=== PATIENT | male | born 1960 | race Caucasian/White ===

== ENCOUNTER 2020-03-19 15:04 | Outpatient (CLI) | payer MEDICARE, MEDICAID, SELFPAY ==
--- NOTE | ~2020-03-19 | CT_ITS ---
EXAMINATION: CT abdomen pelvis w con DATE: 03/19/2020 16:02 INDICATION: Abnormal liver function tests. Distended abdomen. TECHNIQUE: Computed tomography (CT) of the abdomen and pelvis was performed with 100 cc Omnipaque 350 intravenous contrast. The dose-length product was 1113.65 mGy-cm. Automated exposure control and ite rative reconstruction technique were employed. COMPARISON: None. FINDINGS: There is atelectasis of the lung bases. Elevated right diaphragm. Heart size normal. No sig nificant pleural or pericardial effusion. There is cirrhosis of the liver. There are gallstones. There are calcified granulomas of the spleen. There is a large amount of ascites. There is a subtle 1.4 cm hypodense lesion of the pancreatic head. There are multiple left adrenal masses, largest measuring 1.8 cm. There is recanalization of the umb ilical vein. The kidneys are unremarkable. Nonobstructive bowel gas pattern. No free air. No osteolyt ic or osteoblastic lesions. IMPRESSION: 1. Cirrhosis of the liver with evidence of portal hypertension. Large amount of ascites. 2: Cholelithiasis. 3: 1.4 cm hypodense lesion pancreatic head. The differential diagnosis includes pseudocyst, intraduc yessica papillary mucinous neoplasm (IPMN), mucinous cystic neoplasm (MCN), and the less common serous cy stadenoma and neuroendocrine tumor. 4: Cholelithiasis. Reviewed, dictated and finalized at location A. IMPRESSION: 1. Cirrhosis of the liver with evidence of portal hypertension. Large amount of ascites. 2: Cholelithiasis. 3: 1.4 cm hypodense lesion pancreatic head. The differential diagnosis include s pseudocyst, intraductal papillary mucinous neoplasm (IPMN), mucinous cystic n eoplasm (MCN), and the less common serous cystadenoma and neuroendocrine tumor. 4: Cholelithiasis.
[2020-03-19 15:47] LABS: Estimated Glomerular Filt Rate > 60
== END 2020-03-19 15:05 | disposition home or self-care (01) ==
LOC: ANHIMG 15:12
PROVIDERS: PCP Family Medicine; Visit Provider Family Medicine
DX: R94.5 Abnormal results of liver function studies (principal); K74.69 Other cirrhosis of liver; K80.20 Calculus of gallbladder without cholecystitis without obstruction
CPT/HCPCS: 74177; Q9967

== ENCOUNTER 2020-04-27 09:51 | Inpatient (IN) | payer MEDICARE, MEDICAID, SELFPAY ==
[2020-04-27] VITALS (30 sets, daily range): BP systolic 82–120; BP diastolic 54–85; PULSE 98–124; RESP 18–22; TEMP 36.4–36.6; O2SAT 96–100; BMI 34.7
--- NOTE | ~2020-04-27 | XR_ITS ---
EXAMINATION: XR chest 2V DATE: 05/03/2020 11:53 INDICATION: Fever. TECHNIQUE: Frontal and lateral views of the chest were obtained. COMPARISON: Chest single view 04/28/2020 FINDINGS: There are small pleural effusions. There is mild atelectasis at the lung bases. There are m ild airspace opacities in right midlung zone. No pneumothorax. The heart size is normal. IMPRESSION: 1. Mild airspace opacities in right midlung zone, consistent with pulmonary edema versus pneumonia. 2. Small pleural effusions. Reviewed, dictated and finalized at location B. NCED SOLUTIONS ARCHITECT IMPRESSION: 1. Mild airspace opacities in right midlung zone, consistent with pulmonary aide ma versus pneumonia. 2. Small pleural effusions.
--- NOTE | ~2020-04-27 | XR_ITS ---
XR chest 1V portable 04/28/2020 12:02 Indication: Shortness of breath Procedure: AP portable chest Comparison: 04/27/2020 Findings: Bilateral perihilar and basilar infiltrates. Possible small effusions. Heart size normal. N o pneumothorax. Impression: 1: Bilateral perihilar and basilar infiltrates may represent mild edema versus pneumonia. Reviewed, dictated and finalized at location A. UM TANK TENDER Impression: 1: Bilateral perihilar and basilar infiltrates may represent mild edema versus pneumonia.
--- NOTE | ~2020-04-27 | US_ITS ---
EXAMINATION: US paracentesis abd w/image DATE: 04/28/2020 13:31 METAL OR WOOD BLOCKER INDICATION: Ascites. TECHNIQUE: The procedure for an ultrasound-guided paracentesis was discussed with the patient. Risks and benefits were detailed, including risks of bleeding, infection, and pain. The patient verbalize d understanding and agreed to proceed following written consent. A time and out was performed to verify patient's name, date of , and type of procedure. The lef t lower quadrant of the abdomen was prepped and draped in usual manner. 1% lidocaine was used for lo efren anesthesia. A catheter was inserted into the left lower quadrant under ultrasound guidance into the ascitic fluid. The fluid was removed with vacuum assistance. All needles were removed. The patient tolerated the procedure without immediate complication.] FINDINGS: Limited images of the abdomen demonstrates a large amount of ascites. Approximately 5 L of yellowish clear liquid was removed. IMPRESSION: 1. Successful ultrasound-guided paracentesis, with removal of approximately 5 L of fluid. Reviewed, dictated and finalized at location A. L OR WOOD BLOCKER
--- NOTE | ~2020-04-27 | XR_ITS ---
XR chest 1V portable 04/27/2020 10:22 Indication: Shortness of breath Procedure: AP portable chest Comparison: Comparison to multiple prior studies sequentially, with oldest reviewed study dated 11/2007. Findings: Shallow inspiration. Small pleural effusions. Bibasilar atelectasis. No pneumothorax. No ed goran. Impression: 1: Bibasilar atelectasis. 2: Small pleural effusions. Reviewed, dictated and finalized at location B. ULAR NURSE Impression: 1: Bibasilar atelectasis. 2: Small pleural effusions.
--- NOTE | 2020-04-27 10:00 | ECG_ITS ---
Measurements Intervals [place] Rate: 125 P: 0 AK: 130 QRS: -9 QRSD: 81 T: -16 QT: 343 QTc: 496 Interpretive Statements SINUS OR ECTOPIC ATRIAL TACHYCARDIA BORDERLINE R WAVE PROGRESSION, ANTERIOR LEADS BORDERLINE T WAVE ABNORMALITY- ANTEROLAT/INF LEADS BASELINE ARTIFACT- V1, V3 ABNORMAL ECG Electronically Signed On 04-27-2020 10:04:37 [employer] by Anthony Kaiser D.O.
[2020-04-27 10:21] LABS: Basophils Percent Auto 0.6 % (0.2-1.2); Eosinophils Absolute Auto 0.1 K/mm3 (0-0.3); Eosinophils Percent Auto 1.1 % (0-4.4); Hematocrit 35.9 % (42.0-52.0); Immature Granulocyte Absolute 0.02 K/mm3 (0.00-0.031); Immature Granulocyte Percent A 0.3 % (0-0.5); Lymphocytes Absolute Auto 2.13 K/mm3 (0.9-3.2); Lymphocytes Percent Auto 30.2 % (18.3-44.2); Mean Corpuscular HGB Conc 33.4 g/dl (32-36); Mean Corpuscular Hemoglobin 31.3 pg (26-34); Mean Corpuscular Volume 93.7 fl (80-100); Mean Platelet Volume 9.2 fl (7.4-10.4); Monocytes Absolute Auto 0.8 K/mm3 (0.1-0.6); Monocytes Percent Auto 11.5 % (2.6-8.5); Neutrophils Percent Auto 56.3 % (45.5-73.1); Platelet Count Result 235 k/mm3 (150-375); Red Blood Count 3.83 M/mm3 (4.6-6.20); Red Cell Distribution Width 17.2 % (11.5-14.5); White Blood Count 7.1 K/mm3 (4.5-10.0)
[2020-04-27 10:28] LABS: Anion Gap 6 mmol/L (8-16); Blood Urea Nitrogen 13 mg/dL (9-20); Calcium 8.6 mg/dL (8.4-10.2); Carbon Dioxide 24 mmol/L (22-30); Chloride 107 mmol/L (98-107); Estimated CRCL calculation 110 ml/min; Estimated Glomerular Filt Rate > 60; Glucose 114 mg/dL (75-110); Potassium 4.1 mmol/L (3.4-5.0); Sodium 137 mmol/L (137-145)
[2020-04-27 10:31] LABS: Atypical Lymphocytes Present; Platelet Estimate Adequate (Adequate)
--- NOTE | 2020-04-27 11:18 | ED.SOB ---
HPI - SOB/Dyspnea General Chief Complaint: Shortness of Breath/Dyspnea Stated Complaint: SOB with exertion x months Time Seen by Provider: 04/27/20 10:24 Source: patient and family Limitations: no limitations History of Present Illness HPI Narrative: Patient is 60 years old white male presents with gradual increase of shortness of breath over the last 5 to 6 months. Patient had history of liver cirrhosis and ascites, never had abdominal centesis before. Never seen director of rehabilitative services. Patient denies any fever, chills, nausea, vomiting, exposure to anybody known having COVID-19. Related Data Home Medications Medication Instructions Recorded Confirmed alprazolam 04/27/20 hydrocodone-acetaminophen 04/27/20 losartan 04/27/20 Allergies Allergy/AdvReac Type Severity Reaction Status Date / Time No Known Allergies Allergy Unverified 04/27/20 09:56 Review of Systems Review of Systems: Narrative: CONSTITUTIONAL: Denies fever, chills, or sweats. EYES: Denies visual changes, redness, or discharge. ENT: Denies rhinorrhea, congestion, sore throat, or otalgia. CARDIOVASCULAR: Denies chest pain, palpitations, or edema. RESPIRATORY: Shortness of breath GASTROINTESTINAL: Abdominal distention with diffuse tenderness GENITOURINARY: Denies dysuria or hematuria. SKIN: Denies rash or itching. MUSCULOSKELETAL: Denies back pain, joint pain, or myalgia. NEUROLOGIC: Denies headache, numbness, or weakness. PSYCHIATRIC: Depression and anxiety [facility] Past Medical History Medical History Alcoholism Hyperlipidemia Hypertension Liver cirrhosis Family History Family History Mother Family history of diabetes mellitus in first degree relative Family history of coronary artery disease Social History Social History Smoking status: Never smoker Alcohol intake: current Gender identity (if verbalized by the patient): Male Exam Narrative: Exam Narrative: General appearance: Well-developed, well-nourished Skin: Normal color Head: Normocephalic, nontraumatic Eyes: Clear conjunctiva ENT: Oropharynx normal, ears normal, nose normal Neck: Supple, nontender Chest and respiratory: Airway patent, no respiratory distress, no accessory muscle use Heart: Regular rate/rhythm Abdomen: Tense, large ascites, Vascular: Normal peripheral pulses, normal capillary refill. Musculoskeletal: Normal range of motion, nontender back Neurologic: Alert and oriented ?3, SENIOR DATA ARCHITECT is normal as tested, no gross motor deficit Course Course Emergency Course: Stable Consultations Consultation #1: kiesha Date: 04/27/20 Time: 13:17 Vital Signs Vital signs: Vital Signs Temperature 36.4 C L 04/27/20 09:52 Pulse Rate 98 04/27/20 09:52 Respiratory Rate 20 04/27/20 09:52 Blood Pressure 120/82 04/27/20 09:52 Pulse Oximetry 98 04/27/20 09:52 Temperature 36.4 C L 04/27/20 09:52 Pulse Rate 119 H 04/27/20 11:16 Respiratory Rate 21 H 04/27/20 11:46 Blood Pressure 96/83 L 04/27/20 11:46 Pulse Oximetry 98 04/27/20 12:14 MDM - SOB/Dyspnea MDM Narrative Medical decision making narrative: Patient presents with shortness of breath which I believe secondary to increasing the size of the ascites. Never been seen by director of rehabilitative services. Never had abdominal centesis in the past. Labs, ordered. Further plan to follow Differential Diagnosis Differential diagnosis: Likely other (Liver cirrhosis, electrolyte imbalance, ascites) Lab Data Result diagrams: 04/27/20 10:05 04/27/20 10:05 Lab
--- NOTE | 2020-04-27 11:20 | PC.NURSE ---
received report from Ana CONTEH. resting on stretcher. in room. all tests resulted. waiting for final decision regarding admission and paracentesis.
[2020-04-27 13:36] LABS: INR 1.6; Prothrombin Time 19.9 Seconds (11.1-14.7)
[2020-04-27 13:37] LABS: Partial Thromboplastin Time 39.7 SECONDS (22.3-36.8)
--- NOTE | 2020-04-27 14:38 | PC.NURSE ---
patient taken to GI lab for paracentesis. patient has bed assigned. advised GI blood bank laboratory technician that patient can go to his bed after procedure. will also notify charge nurse and GI lab.
--- NOTE | 2020-04-27 14:50 | PC.NURSE ---
report given to RN on 3rd floor. aware that patient is in GI lab and then will be transferred to 344.
--- NOTE | 2020-04-27 14:52 | PC.NURSE ---
attempted to call GI lab. no answer x multiple attempts.
--- NOTE | 2020-04-27 15:22 | ADMGEN ---
This patient, Lloyd Scales, was admitted to Medical Room 344-01. Patient/family oriented to hospital policies and general routines including ID bracelet, bed and alarms, visiting hours, pain management, procedures, bathroom and other care routines, personal items, smoking policy, room service/diet, and visiting hours. Information on how to activate the Rapid Response Team has been discussed. Patient/Family are encouraged to report perceived risks to care and to ask questions if they do not understand what they are told or what they should do.
--- NOTE | 2020-04-27 16:43 | PM.IMHP ---
H&P: HPI History of Present Illness Date/Time: 04/27/20 16:43 Chief complaint: liver cirrhosis with ascites,pancreatitis mass Narrative: Lloyd Scales is a 60 year old male who has a long history of alcoholism. The patient stated that he has been abstinent from alcohol for at least 2-3 months. In he is also down to just a couple cigarettes a day. The patient has a known pancreatic mass. The patient had an appointment to see a specialist at [facility] but he did not make it to his appointment For unknown reasons. The patient just stated that he missed it. Patient had a abdominal pelvis CT on 03/19/2020 which was read as cirrhosis of the liver with evidence of portal hypertension. Large amount of ascites. Cholelithiasis. 1.4 cm hypodense lesion pancreatic head. The differential diagnosis includes pseudocyst, intraductal papillary mucous neoplasm and least common serous cystadenoma. The patient was going to be worked up outpatient for this but just did not make it to the appointment. Today the patient came into the emergency room very distended and uncomfortable. The patient stated he is very short of breath with exertion due to the enlarged abdomen. The patient is a poor historian. GI has been consulted. Patient has undergone a paracentesis today with cytology. According to the ultrasound report successful ultrasound-guided paracentesis yielding 5000 mL of yellow fluid. Patient's chest x-ray was read as bibasilar atelectasis. Small pleural effusions. Patient has 4+ pitting edema to lower extremities. Awaiting LFTs and ammonia Levels. Dr. pop has been consulted and has already seen the patient. He recommended Lasix and Aldactone. I talked to the patient about the pancreatic mass and he has been aware for some time. He agrees to follow-up with that specialist at [facility] outpatient. Patient is being admitted to observation status date of service 04/27/2020. Review of Systems Review of Systems: All systems reviewed & are unremarkable except as noted in HPI and below Constitutional: Constitutional: Reports as per HPI and Reports no additional constitutional complaints Eyes: Eyes: Reports as per HPI and Reports no additional eye complaints ENT: Reports system reviewed and no additional complaints, except as documented and Reports Normal hearing present Cardiovascular: Cardiovascular: Reports no additional cardiovascular complaints Respiratory: Respiratory: Reports no additional respiratory complaints and Reports no additional respiratory complaints Gastrointestinal: Gastrointestinal: Reports as per HPI and Reports no additional gastrointestinal complaints Musculoskeletal: Musculoskeletal: Reports no additional musculoskeletal complaints Integumentary/Breasts: Skin/Breast: Reports system reviewed and no additional complaints, except as docu and Reports as per HPI Neurologic: Reports system reviewed and no additional complaints, except as documented, Reports as per HPI and Reports Normal hearing present Psychiatric: Psychiatric: Reports no additional psychiatric complaints and Reports as per HPI Endocrine: Endocrine: Reports no additional endocrine complaints Hematologic/Lymphatic: Hematologic/Lymphatic: Reports no additional hematologic/lymphatic complaints Allergic/Immunologic: Allergic/Immunologic: Reports no additional allergic/immunologic complaints [facility] Past Medical History Medical History (Updated 04/27/20 @ 17:03 by Jeanne Marr NP) Alcohol withdrawal seizure Alcoholism BPH (benign prostatic hyperplasia) Chronic anemia Hyperlipidemia Hypertension Liver cirrhosis Spina bifida occulta Surgical History Surgical History (Updated 04/27/20 @ 17:03 by Jeanne Marr NP) H/O hemorrhoidectomy S/P shoulder replacement Status post left foot surgery Family History Family History (Updated 04/27/20 @ 17:05 by Jeanne Marr NP) Mother Family history of diabetes mellitus in first degree relati
[2020-04-27 17:10] LABS: Appearance Peritoneal Fluid Clear (Clear); Color Peritoneal Fluid Yellow (Colorless); Lymphocytes Peritoneal Fluid 66 %; Macrophages Peritoneal Fluid 10 %; Mesothelial Cells Peritoneal Fluid 3 %; Monocytes Peritoneal Fluid 19 %; Neutrophils Peritoneal Fluid 2 % (0-25); Nucleated Cells Peritoneal Flu 89 /uL (0-500); RBC Peritoneal Fluid 157 /uL (0-100000); Source Peritoneal Fluid Peritoneal Fluid
[2020-04-27 18:11] LABS: Ammonia < 9 umol/L (9-30)
[2020-04-28] VITALS (8 sets, daily range): BP systolic 70–126; BP diastolic 40–78; PULSE 90–111; RESP 16–20; TEMP 36.2–36.7; O2SAT 91–97
[2020-04-28 05:38] LABS: Basophils Percent Auto 0.4 % (0.2-1.2); Eosinophils Absolute Auto 0.1 K/mm3 (0-0.3); Eosinophils Percent Auto 1.8 % (0-4.4); Hematocrit 28.5 % (42.0-52.0); Hemoglobin 9.6 g/dL (14.0-18.0); Immature Granulocyte Absolute 0.02 K/mm3 (0.00-0.031); Immature Granulocyte Percent A 0.4 % (0-0.5); Lymphocytes Absolute Auto 1.46 K/mm3 (0.9-3.2); Lymphocytes Percent Auto 26.7 % (18.3-44.2); Mean Corpuscular HGB Conc 33.7 g/dl (32-36); Mean Corpuscular Hemoglobin 31.2 pg (26-34); Mean Corpuscular Volume 92.5 fl (80-100); Mean Platelet Volume 9.2 fl (7.4-10.4); Monocytes Absolute Auto 0.8 K/mm3 (0.1-0.6); Monocytes Percent Auto 13.7 % (2.6-8.5); Neutrophils Absolute Auto 3.1 K/mm3 (1.3-6.7); Platelet Count Result 153 k/mm3 (150-375); Red Blood Count 3.08 M/mm3 (4.6-6.20); Red Cell Distribution Width 16.9 % (11.5-14.5); White Blood Count 5.5 K/mm3 (4.5-10.0)
[2020-04-28 06:04] LABS: Alanine Aminotransferase 12 U/L (4-50); Albumin Level 2.1 g/dL (3.5-5.1); Alkaline Phosphatase 97 U/L (38-126); Anion Gap 3 mmol/L (8-16); Aspartate Amino Transferase 33 U/L (17-59); Bilirubin,Total 1.6 mg/dL (0.2-1.3); Blood Urea Nitrogen 12 mg/dL (9-20); CRP 1.3 mg/dL (<1.0); Calcium 7.8 mg/dL (8.4-10.2); Carbon Dioxide 25 mmol/L (22-30); Chloride 107 mmol/L (98-107); Estimated CRCL calculation 124 ml/min; Estimated Glomerular Filt Rate > 60; Glucose 84 mg/dL (75-110); Lactate Dehydrogenase 271 U/L (313-618); Lipase 40 U/L (23-300); Magnesium 1.8 mg/dL (1.6-2.3); Phosphorus 3.8 mg/dL (2.5-4.5); Potassium 4.1 mmol/L (3.4-5.0); Sodium 135 mmol/L (137-145)
[2020-04-28 06:41] LABS: Platelet Estimate Adequate (Adequate)
[2020-04-28 06:42] LABS: Atypical Lymphocytes Present
[2020-04-28 06:47] LABS: Thyroid Stimulating Hormone Reflex 0.806 uIU/mL (0.465-4.68)
[2020-04-28] MEDS: ALPRAZolam (*CRX) 0.5 MG TABLET PO (06:47)
[2020-04-28] MEDS: TAMSULOSIN HCL 0.4 MG CAPSULE PO (08:47)
[2020-04-28] MEDS: FUROSEMIDE 20 MG TABLET PO (08:47)
[2020-04-28] MEDS: SPIRONOLACTONE 25 MG TABLET PO (08:47)
[2020-04-28] MEDS: allopurinoL 150 MG TABLET PO (08:47)
[2020-04-28] MEDS: FUROSEMIDE INJ 40 MG/4 ML VIAL 20 MG IV PUSH (11:59)
--- NOTE | 2020-04-28 12:46 | WPDGIPROGNO ---
Progress Note: A&P Additional Plan Kavin for Fedder 28 Apr 2020 Mild SOB. No abdominal pain, n, v. 4+ bilateral LIEN. Large ascites. C+A x 3. 04-28-2020 Hct 29. MCV 93. Lip 40, TSH 0.8 04-27-2020 NH3 < 9. Ascites negative for SBP A. Alcoholic cirrhosis with ascites: - For repeat tap today; s/p 5 L tap 04-27-2020 - 2 gr sodium restriction - Would diurese with Lasix 40-80 mg IV Q 12 - Would give 25 gr of salt poor albumin before each Lasix dose - Aldactone 100 mg daily @ 4 pm - Continue alcohol cessation B. Abnormal imaging pancreas: - CT 03-19-2020 with 1.4 cm lesion @ [facility] - Check CA 19-9 - Consider either repeat CT with pancreatic protocol after 2 months or consider EUS with FNA Case discussed with Dr. Heart. Patient may wish to consider hospital discharge on Hospice. Will await decision. Thanks, [facility] [phone] Subjective Date/time seen: 04/28/20 12:46 Objective Data Vital Signs Vital Signs: Vital Signs - 24 hr 04/27/20 13:14 04/27/20 13:15 04/27/20 13:16 Temperature Pulse Rate Respiratory Rate Blood Pressure 90/66 L Pulse Oximetry 100 98 96 04/27/20 13:30 04/27/20 14:02 04/27/20 15:44 Temperature 36.6 C Pulse Rate 107 H Respiratory Rate 18 Blood Pressure 85/65 L Pulse Oximetry 98 97 99 04/27/20 16:44 04/27/20 19:56 04/27/20 20:00 Temperature 36.5 C Pulse Rate 105 H Respiratory Rate 20 Blood Pressure 82/54 L Pulse Oximetry 98 97 99 04/28/20 05:38 04/28/20 08:45 04/28/20 11:58 Temperature 36.2 C L Pulse Rate 102 H Respiratory Rate 16 Blood Pressure 94/65 L 115/76 126/73 Pulse Oximetry 95 91 Intake/Output Intake/Output: Intake & Output 04/25/20 04/26/20 04/27/20 04/28/20 23:59 23:59 23:59 23:59 Intake Total 540 740 Output Total 0 200 Balance 540 540 Meds/Results Medications: Active Medications Generic Name Dose Route Start Last Admin Trade Name Namanq PRN Reason Stop Dose Admin Allopurinol 150 mg 04/28/20 09:00 04/28/20 08:47 Allopurinol 150 Mg Tablet PO 150 mg DAILY AMBER Administration Alprazolam 0.5 mg 04/27/20 16:42 04/28/20 06:47 Alprazolam (*Crx) 0.5 Mg Tablet PO 0.5 mg QID PRN Administration Anxiety Furosemide 20 mg 04/28/20 09:00 04/28/20 08:47 Furosemide 20 Mg Tablet PO 20 mg DAILY AMBER Administration Nicotine 1 patch 04/28/20 11:45 Nicotine (*Pbkc) 14 Mg Patch TRANSDERM QAM AMBER Spironolactone 25 mg 04/28/20 09:00 04/28/20 08:47 Spironolactone 25 Mg Tablet PO 25 mg QAM AMBER Administration Tamsulosin HCl 0.4 mg 04/28/20 09:00 04/28/20 08:47 Tamsulosin Hcl 0.4 Mg Capsule PO 0.4 mg DAILY AMBER Administration Radiology Results: ITS Impressions Chest X-Ray 04/28/20 12:12 Impression: 1: Bilateral perihilar and basilar infiltrates may represent mild edema versus pneumonia. Labs Labs: Laboratory Results - last 24 hr 04/27/20 04/27/20 04/27/20 10:05 14:51 17:45 WBC RBC Hgb Hct MCV MCH MCHC RDW Plt Count MPV Immature Gran % (Auto) Neut % (Auto) Lymph % (Auto) [place] % (Auto) Eos % (Auto) Baso % (Auto) Lymph # (Auto) [place] # (Auto) Eos # (Auto) Baso # (Auto) Abs Immat Gran (auto) Absolute Neuts (auto) Absolute Nucleated RBC Nucleated RBC % Atypical Lymphocytes Platelet Estimate PT 19.9 H INR 1.6 APTT 39.7 H Sodium Potassium Chloride Carbon Dioxide Anion Gap BUN Creatinine Estim Creat Clear Calc Estimated GFR Glucose Calcium Phosphorus Magnesium Total Bilirubin Direct Bilirubin AST ALT Alkaline Phosphatase Ammonia < 9 L Lactate Dehydrogenase C-Reactive Protein Total Protein Albumin Lipase TSH (Reflex) Peritoneal Source Peritoneal fluid Peritoneal Color Yellow Peritoneal Appearance Clear Peritoneal RBC 157 Periton Nuc Cells
--- NOTE | 2020-04-28 12:50 | PM.DS ---
DS: Admitting Diagnosis Admitting Diagnosis Admitting Diagnosis: liver cirrhosis with ascites,pancreatitis mass DS: Summary Time Spent with Patient Time attestation: Total time spent providing and/or coordinating discharge services: DS: Data Data Completed and Pending Pending studies at discharge: Pending at discharge 04/27/20 16:20 Cytology [PTH] Routine Labs on day of discharge: Labs from last 24 hours 04/28/20 04/28/20 04/28/20 05:17 05:17 05:17 WBC 5.5 RBC 3.08 L Hgb 9.6 L Hct 28.5 L MCV 92.5 MCH 31.2 MCHC 33.7 RDW 16.9 H Plt Count 153 MPV 9.2 Immature Gran % (Auto) 0.4 Neut % (Auto) 57.0 Lymph % (Auto) 26.7 [place] % (Auto) 13.7 H Eos % (Auto) 1.8 Baso % (Auto) 0.4 Lymph # (Auto) 1.46 [place] # (Auto) 0.8 H Eos # (Auto) 0.1 Baso # (Auto) 0.0 Abs Immat Gran (auto) 0.02 Absolute Neuts (auto) 3.1 Absolute Nucleated RBC 0.0 Nucleated RBC % 0.0 Atypical Lymphocytes Present Platelet Estimate Adequate PT INR APTT Sodium 135 L Potassium 4.1 Chloride 107 Carbon Dioxide 25 Anion Gap 3 L BUN 12 Creatinine 0.60 L Estim Creat Clear Calc 124 Estimated GFR > 60 Glucose 84 Calcium 7.8 L Phosphorus 3.8 Magnesium 1.8 Total Bilirubin 1.6 H Direct Bilirubin 0.0 AST 33 ALT 12 Alkaline Phosphatase 97 Ammonia Lactate Dehydrogenase 271 L C-Reactive Protein 1.3 H Total Protein 5.0 L Albumin 2.1 L Lipase 40 TSH (Reflex) 0.806 Peritoneal Source Peritoneal Color Peritoneal Appearance Peritoneal RBC Periton Nuc Cells Periton Neutrophils Periton Lymphocytes Peritoneal Monocytes Periton Mesothelial Periton Macrophages Peritoneal Tot Protein Peritoneal Albumin Peritoneal LDH 04/27/20 04/27/20 04/27/20 17:45 14:51 14:51 WBC RBC Hgb Hct MCV MCH MCHC RDW Plt Count MPV Immature Gran % (Auto) Neut % (Auto) Lymph % (Auto) [place] % (Auto) Eos % (Auto) Baso % (Auto) Lymph # (Auto) [place] # (Auto) Eos # (Auto) Baso # (Auto) Abs Immat Gran (auto) Absolute Neuts (auto) Absolute Nucleated RBC Nucleated RBC % Atypical Lymphocytes Platelet Estimate PT INR APTT Sodium Potassium Chloride Carbon Dioxide Anion Gap BUN Creatinine Estim Creat Clear Calc Estimated GFR Glucose Calcium Phosphorus Magnesium Total Bilirubin Direct Bilirubin AST ALT Alkaline Phosphatase Ammonia < 9 L Lactate Dehydrogenase C-Reactive Protein Total Protein Albumin Lipase TSH (Reflex) Peritoneal Source Peritoneal fluid Peritoneal Color Yellow Peritoneal Appearance Clear Peritoneal RBC 157 Periton Nuc Cells 89 Periton Neutrophils 2 Periton Lymphocytes 66 Peritoneal Monocytes 19 Periton Mesothelial 3 Periton Macrophages 10 Peritoneal Tot Protein Pending Peritoneal Albumin Pending Peritoneal LDH Pending 04/27/20 10:05 WBC RBC Hgb Hct MCV MCH MCHC RDW Plt Count MPV Immature Gran % (Auto) Neut % (Auto) Lymph % (Auto) [place] % (Auto) Eos % (Auto) Baso % (Auto) Lymph # (Auto) [place] # (Auto) Eos # (Auto) Baso # (Auto) Abs Immat Gran (auto) Absolute Neuts (auto) Absolute Nucleated RBC Nucleated RBC % Atypical Lymphocytes Platelet Estimate PT 19.9 H INR 1.6 APTT 39.7 H Sodium Potassium Chloride Carbon Dioxide Anion Gap BUN Creatinine Estim Creat Clear Calc Estimated GFR Glucose Calcium Phosphorus Magnesium Total Bilirubin Direct Bilirubin AST ALT Alkaline Phosphatase Ammonia Lactate Dehydrogenase C-Reactive Protein Total Protein Albumin Lipase TSH (Reflex) Peritoneal Source Peritoneal Color Peritoneal Appearance Peritoneal RBC
--- NOTE | 2020-04-28 13:01 | PM.IMPN ---
Progress Note: A&P Assessment and Plan (1) Cirrhosis of liver with ascites: Qualifiers: Hepatic cirrhosis type: alcoholic cirrhosis Qualified Code(s): K70.31 - Alcoholic cirrhosis of liver with ascites Code(s): K74.60 - Unspecified cirrhosis of liver; R18.8 - Other ascites Status: Acute Assessment and Plan: Oxygen IV lasix bid albumin before lasix, aldactone at 4 pm 100mg Pt going for second paracentesis today D/w GI regarding gross fluid overload (2) Mass of pancreas: Code(s): K86.89 - Other specified diseases of pancreas Status: Chronic Assessment and Plan: Patient was to follow-up outpatient with a specialist at [place] but missed the appointment. unsure whether this is pancreatic cancer CEA 19-9 ordered (3) BPH (benign prostatic hyperplasia): Code(s): N40.0 - Benign prostatic hyperplasia without lower urinary tract symptoms Status: Chronic Assessment and Plan: Continue with tamsulosin (4) Hypertension: Code(s): I10 - Essential (primary) hypertension Status: Chronic Assessment and Plan: patient's blood pressure is soft at this time going to hold losartan today. (5) Chronic anemia: Code(s): D64.9 - Anemia, unspecified Status: Chronic Assessment and Plan: Continue to monitor. (6) Alcohol abuse: Code(s): F10.10 - Alcohol abuse, uncomplicated Status: Acute Assessment and Plan: Patient stated he has abstained for the last 2-3 months. watch for any DTs Subjective Date/time seen: 04/28/20 13:01 Interval history: 60 year old admitted with gross ascites pt had paracentesis yesterday i ordered paracentesis for him today. Pt still looks to have large amount of ascites today. Cholelithiasis. 1.4 cm hypodense lesion pancreatic head. The differential diagnosis includes pseudocyst, intraductal papillary mucous neoplasm and least common serous cystadenoma. I will continue to actively treat him and will consult hospice also if he wants to go that route. Discussion with GI continue diuresis with iV LASIX as pt is heavily over loaded. Review of Systems Review of Systems: All systems reviewed & are unremarkable except as noted in HPI and below Exam Narrative: Exam Narrative: SOB at rest in distress on 2 liters using accessory muscles RRR CHest decreased BS BL Abdomen gross ascites Legs non edematous Objective Data Vital Signs Vital Signs: Vital Signs - 24 hr 04/27/20 13:14 04/27/20 13:15 04/27/20 13:16 Temperature Pulse Rate Respiratory Rate Blood Pressure 90/66 L Pulse Oximetry 100 98 96 04/27/20 13:30 04/27/20 14:02 04/27/20 15:44 Temperature 36.6 C Pulse Rate 107 H Respiratory Rate 18 Blood Pressure 85/65 L Pulse Oximetry 98 97 99 04/27/20 16:44 04/27/20 19:56 04/27/20 20:00 Temperature 36.5 C Pulse Rate 105 H Respiratory Rate 20 Blood Pressure 82/54 L Pulse Oximetry 98 97 99 04/28/20 05:38 04/28/20 08:45 04/28/20 11:58 Temperature 36.2 C L Pulse Rate 102 H Respiratory Rate 16 Blood Pressure 94/65 L 115/76 126/73 Pulse Oximetry 95 91 Intake/Output Intake/Output: Intake & Output 04/25/20 04/26/20 04/27/20 04/28/20 23:59 23:59 23:59 23:59 Intake Total 540 740 Output Total 0 200 Balance 540 540 Meds/Results Medications: Active Medications Generic Name Dose Route Start Last Admin Trade Name Freq PRN Reason Stop Dose Admin Allopurinol 150 mg 04/28/20 09:00 04/28/20 08:47 Allopurinol 150 Mg Tablet PO 150 mg DAILY AMBER Administration Alprazolam 0.5 mg 04/27/20 16:42 04/28/20 06:47 Alprazolam (*Crx) 0.5 Mg Tablet PO 0.5 mg QID PRN Administration Anxiety Furosemide 20 mg 04/28/20 09:00 04/28/20 08:47 Furosemide 20 Mg Tablet PO 20 mg DAILY AMBER Administration Nicotine 1 patch 04/28/20 11:45 Nicotine (*Pbkc) 14 Mg Patch [facility] Spi
[2020-04-28] MEDS: NICOTINE (*PBKC) 14 MG PATCH 1 PATCH TRANSDERM (13:33)
[2020-04-28] MEDS: SPIRONOLACTONE 50 MG TABLET 100 MG PO (16:32)
[2020-04-28] MEDS: ALBUMIN HUMAN 25% 25 GM/100 ML 100 ML IVPB (16:34)
[2020-04-29] VITALS (8 sets, daily range): BP systolic 82–96; BP diastolic 41–58; PULSE 103–114; RESP 16–18; TEMP 36.6–36.9; O2SAT 95–99
[2020-04-29] MEDS: SPIRONOLACTONE 25 MG TABLET PO (08:50)
[2020-04-29] MEDS: FUROSEMIDE 20 MG TABLET PO (08:50)
[2020-04-29] MEDS: TAMSULOSIN HCL 0.4 MG CAPSULE PO (08:50)
[2020-04-29] MEDS: NICOTINE (*PBKC) 14 MG PATCH 1 PATCH TRANSDERM (08:50)
[2020-04-29] MEDS: ALBUMIN HUMAN 25% 25 GM/100 ML 100 ML IVPB ×2 (08:51→17:08)
[2020-04-29] MEDS: allopurinoL 150 MG TABLET PO (08:51)
[2020-04-29 09:16] LABS: Anion Gap 3 mmol/L (8-16); Blood Urea Nitrogen 10 mg/dL (9-20); Carbon Dioxide 26 mmol/L (22-30); Chloride 105 mmol/L (98-107); Estimated CRCL calculation 118 ml/min; Estimated Glomerular Filt Rate > 60; Glucose 96 mg/dL (75-110); Potassium 3.8 mmol/L (3.4-5.0); Sodium 134 mmol/L (137-145)
--- NOTE | 2020-04-29 10:44 | WPDGIPROGNO ---
Progress Note: A&P Additional Plan GI [facility] for [place] 29 Apr 2020 SOB better. No abdominal pain, n, v. 4+ bilateral LIEN. Less ascites. C+A x 3. 04-29-2020: K 3.8, Cr 0.6 04-28-2020 Hct 29. MCV 93. Lip 40, TSH 0.8 04-27-2020 NH3 < 9. Ascites negative for SBP A. Alcoholic cirrhosis with ascites: - s/p 5 liter tap 04-29-2020; s/p 5 L tap 04-28-2020 - Consider repeat tap tomorrow - 2 gr sodium restriction - Diurese with Lasix 40-80 mg IV Q 12 - 25 gr of salt poor albumin before each Lasix dose - Aldactone 100 mg daily @ 4 pm - Continue alcohol cessation B. Abnormal imaging pancreas: - CT 03-19-2020 with 1.4 cm lesion @ [facility] - [place] 19-9 pending - Consider either repeat CT with pancreatic protocol after 2 months or consider EUS with FNA Further recommendations per Dr. Gege Atkinson Thanks, [facility] [phone] Subjective Date/time seen: 04/29/20 10:44 Objective Data Vital Signs Vital Signs: Vital Signs - 24 hr 04/28/20 11:58 04/28/20 14:00 04/28/20 18:25 Temperature 36.7 C Pulse Rate 90 Respiratory Rate 16 Blood Pressure 126/73 120/78 70/40 L Pulse Oximetry 94 04/28/20 19:02 04/28/20 20:05 04/28/20 22:00 Temperature 36.6 C Pulse Rate 111 H Respiratory Rate 20 Blood Pressure 76/40 L 107/60 Pulse Oximetry 95 97 04/29/20 05:26 Temperature 36.6 C Pulse Rate 103 H Respiratory Rate 16 Blood Pressure 90/58 L Pulse Oximetry 97 Intake/Output Intake/Output: Intake & Output 04/26/20 04/27/20 04/28/20 04/29/20 23:59 23:59 23:59 23:59 Intake Total 540 1520 780 Output Total 0 6750 650 Balance 540 -5291 130 Meds/Results Medications: Active Medications Generic Name Dose Route Start Last Admin Trade Name Freq PRN Reason Stop Dose Admin Allopurinol 150 mg 04/28/20 09:00 04/29/20 08:51 Allopurinol 150 Mg Tablet PO 150 mg DAILY AMBER Administration Alprazolam 0.5 mg 04/27/20 16:42 04/28/20 06:47 Alprazolam (*Crx) 0.5 Mg Tablet PO 0.5 mg QID PRN Administration Anxiety Furosemide 20 mg 04/28/20 09:00 04/29/20 08:50 Furosemide 20 Mg Tablet PO 20 mg DAILY AMBER Administration Furosemide 40 mg 04/28/20 17:00 04/28/20 18:25 Furosemide Inj 40 Mg/4 Ml Vial IV PUSH Not Given BID AMBER Albumin Human 100 mls @ 60 mls/hr 04/28/20 17:00 04/29/20 08:51 Albutein IVPB 60 mls/hr BID AMBER Administration Nicotine 1 patch 04/28/20 11:45 04/29/20 08:50 Nicotine (*Pbkc) 14 Mg Patch TRANSDERM 1 patch QAM AMBER Administration Spironolactone 25 mg 04/28/20 09:00 04/29/20 08:50 Spironolactone 25 Mg Tablet PO 25 mg QAM AMBER Administration Spironolactone 100 mg 04/28/20 16:00 04/28/20 16:32 Spironolactone 50 Mg Tablet PO 100 mg 1600 AMBER Administration Tamsulosin HCl 0.4 mg 04/28/20 09:00 04/29/20 08:50 Tamsulosin Hcl 0.4 Mg Capsule PO 0.4 mg DAILY AMBER Administration Radiology Results: ITS Impressions Chest X-Ray 04/28/20 12:12 Impression: 1: Bilateral perihilar and basilar infiltrates may represent mild edema versus pneumonia. Paracentesis Ultrasound 04/28/20 13:30 IMPRESSION: 1. Successful ultrasound-guided paracentesis, with removal of approximately 5 L of fluid. Labs Labs: Laboratory Results - last 24 hr 04/29/20 08:00 Sodium 134 L Potassium 3.8 Chloride 105 Carbon Dioxide 26 Anion Gap 3 L BUN 10 Creatinine 0.60 L Estim Creat Clear Calc 118 Estimated GFR > 60 Glucose 96 Calcium 8.0 L
[2020-04-29] MEDS: FUROSEMIDE INJ 40 MG/4 ML VIAL 20 MG IV PUSH (12:04)
--- NOTE | 2020-04-29 16:06 | PM.IMPN ---
Progress Note: A&P Assessment and Plan (1) Cirrhosis of liver with ascites: Qualifiers: Hepatic cirrhosis type: alcoholic cirrhosis Qualified Code(s): K70.31 - Alcoholic cirrhosis of liver with ascites Code(s): K74.60 - Unspecified cirrhosis of liver; R18.8 - Other ascites Status: Acute Assessment and Plan: Oxygen IV lasix bid albumin before lasix, aldactone at 4 pm 100mg Pt going for second paracentesis today D/w GI regarding gross fluid overload 04/29/20 16:06 Patient is 60-year-old male with history of alcohol abuse he has been sober for last 3 months presented emergency department with a complaint shortness of breath secondary to large ascites on 04/27/20 patient had a paracentesis and 5 L was collected, his symptoms were persistenting and patient had another paracentesis on 04/28 and another 5 L was collected patient is seen by GI and been vigorously diuresed with Lasix, spironolactone and albumin, patient is being urinating well, there is also concern the patient may have a pancreatic mass he was to be seen at the [facility] further evaluation. Patient states today he is not as short of breath compared to when he arrived denies any fever or chills, plan is to continue to diurese the patient as much as possible and avoid paracentesis. Patient will be seen by GI and further recommendation to follow. (2) Mass of pancreas: Code(s): K86.89 - Other specified diseases of pancreas Status: Chronic Assessment and Plan: Patient was to follow-up outpatient with a specialist at [facility] but missed the appointment. unsure whether this is pancreatic cancer CEA 19-9 ordered (3) BPH (benign prostatic hyperplasia): Code(s): N40.0 - Benign prostatic hyperplasia without lower urinary tract symptoms Status: Chronic Assessment and Plan: Continue with tamsulosin (4) Hypertension: Code(s): I10 - Essential (primary) hypertension Status: Chronic Assessment and Plan: patient's blood pressure is soft at this time going to hold losartan today. (5) Chronic anemia: Code(s): D64.9 - Anemia, unspecified Status: Chronic Assessment and Plan: Continue to monitor. (6) Alcohol abuse: Code(s): F10.10 - Alcohol abuse, uncomplicated Status: Acute Assessment and Plan: Patient stated he has abstained for the last 2-3 months. watch for any DTs Subjective Date/time seen: 04/29/20 16:06 Patient is 60-year-old male with history of alcohol abuse he has been sober for last 3 months presented emergency department with a complaint shortness of breath secondary to large ascites on 04/27/20 patient had a paracentesis and 5 L was collected, his symptoms were persistenting and patient had another paracentesis on 04/28 and another 5 L was collected patient is seen by GI and been vigorously diuresed with Lasix, spironolactone and albumin, patient is being urinating well, there is also concern the patient may have a pancreatic mass he was to be seen at the [facility] further evaluation. Patient states today he is not as short of breath compared to when he arrived denies any fever or chills, plan is to continue to diurese the patient as much as possible and avoid paracentesis. Patient will be seen by GI and further recommendation to follow. Review of Systems Review of Systems: All systems reviewed & are unremarkable except as noted in HPI and below Exam Narrative: Exam Narrative: Patient appears chronically ill older than his age Patient is comfortable, NAD HEENT: eyes are clear and none icteric LUNGS: Bilateral fair air entry with harsh breath sounds HEART: RR S1S2 ABD: Large ascites bowel sounds are faint diffusely tender Lower extremities: edema SKIN: nonjaundiced Neuro: grossly intact. Objective Data Vital Signs Vital Signs: Vital Signs - 24 hr 04/28/20 18:25 04/28/20 19:02 04/28/20 20:05 Temperature Pulse R
[2020-04-29] MEDS: SPIRONOLACTONE 50 MG TABLET PO (17:06)
[2020-04-29] MEDS: LIDOCAINE 5% PATCH 2 PATCH TRANSDERM (17:17)
[2020-04-29] MEDS: FUROSEMIDE INJ 40 MG/4 ML VIAL 10 MG IV PUSH (23:06)
[2020-04-29] MEDS: ALPRAZolam (*CRX) 0.5 MG TABLET PO (23:08)
[2020-04-30] VITALS (8 sets, daily range): BP systolic 90–103; BP diastolic 55–63; PULSE 98–120; RESP 18; TEMP 36.7–37.2; O2SAT 91–97
[2020-04-30 05:59] LABS: INR 2.1; Prothrombin Time 24.1 Seconds (11.1-14.7)
[2020-04-30 09:31] LABS: Hemoglobin 9.6 g/dL (14.0-18.0); Mean Corpuscular HGB Conc 34.3 g/dl (32-36); Mean Corpuscular Hemoglobin 31.8 pg (26-34); Mean Corpuscular Volume 92.7 fl (80-100); Mean Platelet Volume 9.3 fl (7.4-10.4); Platelet Count Result 149 k/mm3 (150-375); Red Blood Count 3.02 M/mm3 (4.6-6.20); Red Cell Distribution Width 16.7 % (11.5-14.5); White Blood Count 6.9 K/mm3 (4.5-10.0)
[2020-04-30] MEDS: FUROSEMIDE 20 MG TABLET PO (10:04)
[2020-04-30] MEDS: allopurinoL 150 MG TABLET PO (10:04)
[2020-04-30 10:05] LABS: Alanine Aminotransferase 11 U/L (4-50); Albumin Level 2.2 g/dL (3.5-5.1); Alkaline Phosphatase 70 U/L (38-126); Anion Gap 0 mmol/L (8-16); Aspartate Amino Transferase 30 U/L (17-59); Bilirubin,Total 1.4 mg/dL (0.2-1.3); Blood Urea Nitrogen 10 mg/dL (9-20); Calcium 7.5 mg/dL (8.4-10.2); Carbon Dioxide 30 mmol/L (22-30); Chloride 103 mmol/L (98-107); Estimated CRCL calculation 117 ml/min; Estimated Glomerular Filt Rate > 60; Glucose 105 mg/dL (75-110); Magnesium 1.5 mg/dL (1.6-2.3); Potassium 3.6 mmol/L (3.4-5.0); Sodium 133 mmol/L (137-145)
[2020-04-30] MEDS: TAMSULOSIN HCL 0.4 MG CAPSULE PO (10:05)
[2020-04-30] MEDS: NICOTINE (*PBKC) 14 MG PATCH 1 PATCH TRANSDERM (10:05)
[2020-04-30] MEDS: SPIRONOLACTONE 25 MG TABLET PO (10:05)
[2020-04-30] MEDS: ALBUMIN HUMAN 25% 25 GM/100 ML 100 ML IVPB ×2 (10:07→16:31)
--- NOTE | 2020-04-30 10:51 | WPDGIPROGNO ---
Progress Note: A&P Additional Plan Patient more alert than when last seen on Thursday. More oriented. Reports breathing much easier. Status post paracentesis and diuresis. Physical exam reveals Vital Signs to be stable. HEENT exam reveals no icterus. Lungs are clear. Heart without murmur. Abdomen distended with some shifting dullness. Extremities with pedal edema but this is improved. Impression 1. Alcoholic cirrhosis. Alcohol avoidance strongly encourage. Supportive care at this point. 2. ascites. Secondary to the cirrhosis. Continue low-salt diet. Diurese with Aldactone about 100 mg a day. Lasix 40 mg daily. Monitor daily weights and electrolytes. Try to limit paracentesis at this point. 3. Pancreatic mass. Noted on CT scan. Agree with follow-up CT scan in 2-3 months. Endoscopic ultrasound with FNA can be arranged at a tertiary care center if necessary. 4. Hepatic encephalopathy. Mentation appears much improved on lactulose. Subjective Date/time seen: 04/30/20 10:51 Objective Data Vital Signs Vital Signs: Vital Signs - 24 hr 04/29/20 11:41 04/29/20 14:00 04/29/20 16:31 Temperature 97.9 F Pulse Rate 103 H Respiratory Rate 16 Blood Pressure 90/56 L 82/50 L 85/41 L Pulse Oximetry 99 04/29/20 19:50 04/29/20 20:00 04/29/20 20:09 Temperature Pulse Rate 107 H 110 H Respiratory Rate 18 18 Blood Pressure Pulse Oximetry 97 95 96 04/29/20 20:31 04/30/20 05:55 Temperature 98.5 F 98.7 F Pulse Rate 114 H 120 H Respiratory Rate 16 18 Blood Pressure 96/58 L 99/63 L Pulse Oximetry 96 93 Intake/Output Intake/Output: Intake & Output 04/27/20 04/28/20 04/29/20 04/30/20 23:59 23:59 23:59 23:59 Intake Total 540 1520 2010 Output Total 0 4250 6966 519 Balance 854 -6095 -618 -658 Meds/Results Medications: Active Medications Generic Name Dose Route Start Last Admin Trade Name Freq PRN Reason Stop Dose Admin Allopurinol 150 mg 04/28/20 09:00 04/30/20 10:04 Allopurinol 150 Mg Tablet PO 150 mg DAILY AMBER Administration Alprazolam 0.5 mg 04/27/20 16:42 04/29/20 23:08 Alprazolam (*Crx) 0.5 Mg Tablet PO 0.5 mg QID PRN Administration Anxiety Furosemide 20 mg 04/28/20 09:00 04/30/20 10:04 Furosemide 20 Mg Tablet PO 20 mg DAILY AMBER Administration Furosemide 40 mg 04/29/20 18:00 04/29/20 22:31 Furosemide Inj 40 Mg/4 Ml Vial IV PUSH Not Given 1000,1800 [facility] Albumin Human 100 mls @ 60 mls/hr 04/28/20 17:00 04/30/20 10:07 Albutein IVPB 60 mls/hr BID AMBER Administration Magnesium Sulfate 2 gm in 50 mls @ 50 mls/hr 04/30/20 10:06 Magnesium Sulf 2 Gm/Water 50ml IVPB 04/30/20 11:05 ONCE ONE Lidocaine 2 patch 04/29/20 17:00 04/29/20 17:17 Lidocaine 5% Patch TRANSDERM 2 patch DAILY@1700 AMBER Administration Magnesium Oxide 400 mg 04/30/20 10:10 Magnesium Oxide 400 Mg Tablet PO QAM AMBER Nicotine 1 patch 04/28/20 11:45 04/30/20 10:05 Nicotine (*Pbkc) 14 Mg Patch TRANSDERM 1 patch QAM AMBER Administration Spironolactone 25 mg 04/28/20 09:00 04/30/20 10:05 Spironolactone 25 Mg Tablet PO 25 mg QAM AMBER Administration Spironolactone 100 mg 04/28/20 16:00 04/29/20 16:34 Spironolactone 50 Mg Tablet PO Not Given 1600 [facility] Tamsulosin HCl 0.4 mg 04/28/20 09:00 04/30/20 10:05 Tamsulosin Hcl 0.4 Mg Capsule PO 0.4 mg DAILY AMBER Administration Radiology Results: ITS Impressions Chest X-Ray 04/28/20 12:12 Impression: 1: Bilateral perihilar and basilar infiltrates may represent mild edema versus pneumonia. Paracentesis Ultrasound 04/28/20 13:30 IMPRESSION: 1. Successful ultrasound-guided paracentesis, with removal of approximately 5 L of fluid. Labs Labs: Laboratory Results - last 24 hr 04/30/20 04/30/20 04/30/20 05:36 05:36 09:36 WBC 6.9 RBC 3.02 L Hgb 9.6 L Hct 28.0 L MCV 92.7 MCH 31.8 MCHC 34.
[2020-04-30] MEDS: MAGNESIUM OXIDE 400 MG TABLET PO (13:32)
[2020-04-30] MEDS: MAGNESIUM SULF 2 GM/WATER 50ML 2 GM/50 ML BAG IVPB (13:32)
[2020-04-30] MEDS: ALPRAZolam (*CRX) 0.5 MG TABLET PO ×2 (13:36→21:20)
--- NOTE | 2020-04-30 15:43 | PM.IMPN ---
Progress Note: A&P Assessment and Plan (1) Cirrhosis of liver with ascites: Qualifiers: Hepatic cirrhosis type: alcoholic cirrhosis Qualified Code(s): K70.31 - Alcoholic cirrhosis of liver with ascites Code(s): K74.60 - Unspecified cirrhosis of liver; R18.8 - Other ascites Status: Acute Assessment and Plan: Oxygen IV lasix bid albumin before lasix, aldactone at 4 pm 100mg Pt going for second paracentesis today D/w GI regarding gross fluid overload 04/30/20 15:45 Patient is 60-year-old male with history of alcohol abuse he has been sober for last 3 months presented emergency department with a complaint shortness of breath secondary to large ascites on 04/27/20 patient had a paracentesis and 5 L was collected, his symptoms were persistenting and patient had another paracentesis on 04/28 and another 5 L was collected patient is seen by GI and been vigorously diuresed with Lasix, spironolactone and albumin, patient is being urinating well, there is also concern the patient may have a pancreatic mass he was to be seen at the [facility] further evaluation. Patient states today he is not as short of breath compared to when he arrived denies any fever or chills, plan is to continue to diurese the patient as much as possible and avoid paracentesis. Patient stats he ascites is improving and is not as painful, patient is instructed to minimize oral fluid intake and he has agreed. Patient will be seen by GI and further recommendation to follow. (2) Mass of pancreas: Code(s): K86.89 - Other specified diseases of pancreas Status: Chronic Assessment and Plan: Patient was to follow-up outpatient with a specialist at [place] but missed the appointment. unsure whether this is pancreatic cancer CEA 19-9 ordered (3) BPH (benign prostatic hyperplasia): Code(s): N40.0 - Benign prostatic hyperplasia without lower urinary tract symptoms Status: Chronic Assessment and Plan: Continue with tamsulosin (4) Hypertension: Code(s): I10 - Essential (primary) hypertension Status: Chronic Assessment and Plan: patient's blood pressure is soft at this time going to hold losartan today. (5) Chronic anemia: Code(s): D64.9 - Anemia, unspecified Status: Chronic Assessment and Plan: Continue to monitor. (6) Alcohol abuse: Code(s): F10.10 - Alcohol abuse, uncomplicated Status: Acute Assessment and Plan: Patient stated he has abstained for the last 2-3 months. watch for any DTs Subjective Date/time seen: 04/30/20 15:45 Patient is 60-year-old male with history of alcohol abuse he has been sober for last 3 months presented emergency department with a complaint shortness of breath secondary to large ascites on 04/27/20 patient had a paracentesis and 5 L was collected, his symptoms were persistenting and patient had another paracentesis on 04/28 and another 5 L was collected patient is seen by GI and been vigorously diuresed with Lasix, spironolactone and albumin, patient is being urinating well, there is also concern the patient may have a pancreatic mass he was to be seen at the [facility] further evaluation. Patient states today he is not as short of breath compared to when he arrived denies any fever or chills, plan is to continue to diurese the patient as much as possible and avoid paracentesis. Patient stats he ascites is improving and is not as painful, patient is instructed to minimize oral fluid intake and he has agreed. Patient will be seen by GI and further recommendation to follow. Review of Systems Review of Systems: All systems reviewed & are unremarkable except as noted in HPI and below Exam Narrative: Exam Narrative: Patient appears chronically ill older than his age Patient is comfortable, NAD HEENT: eyes are clear and none icteric LUNGS: Bilateral fair air entry with harsh breath sounds HEART: RR S1S2 ABD: Larg
[2020-04-30] MEDS: SPIRONOLACTONE 50 MG TABLET 100 MG PO (16:31)
[2020-04-30] MEDS: LIDOCAINE 5% PATCH 2 PATCH TRANSDERM (16:31)
[2020-04-30] MEDS: CALCIUM CARBONATE (TUMS) 500 MG (200 MG ELEMENTAL) PO (18:32)
[2020-05-01] VITALS (7 sets, daily range): BP systolic 98–110; BP diastolic 61–72; PULSE 104–122; RESP 18–20; TEMP 36.7–39.2; O2SAT 90–97
[2020-05-01 05:51] LABS: Hematocrit 27.1 % (42.0-52.0); Hemoglobin 9.4 g/dL (14.0-18.0); Mean Corpuscular HGB Conc 34.7 g/dl (32-36); Mean Corpuscular Hemoglobin 31.4 pg (26-34); Mean Corpuscular Volume 90.6 fl (80-100); Platelet Count Result 138 k/mm3 (150-375); Red Blood Count 2.99 M/mm3 (4.6-6.20); Red Cell Distribution Width 16.7 % (11.5-14.5); White Blood Count 5.8 K/mm3 (4.5-10.0)
[2020-05-01 05:54] LABS: INR 2.1; Prothrombin Time 23.9 Seconds (11.1-14.7)
[2020-05-01] MEDS: ALPRAZolam (*CRX) 0.5 MG TABLET PO ×3 (05:55→22:12)
[2020-05-01] MEDS: CALCIUM CARBONATE (TUMS) 500 MG (200 MG ELEMENTAL) PO ×2 (05:55→18:06)
[2020-05-01 06:08] LABS: Alanine Aminotransferase 11 U/L (4-50); Albumin Level 2.4 g/dL (3.5-5.1); Alkaline Phosphatase 64 U/L (38-126); Anion Gap 2 mmol/L (8-16); Aspartate Amino Transferase 35 U/L (17-59); Bilirubin,Total 1.7 mg/dL (0.2-1.3); Blood Urea Nitrogen 10 mg/dL (9-20); Calcium 7.8 mg/dL (8.4-10.2); Carbon Dioxide 30 mmol/L (22-30); Chloride 101 mmol/L (98-107); Estimated CRCL calculation 137 ml/min; Estimated Glomerular Filt Rate > 60; Glucose 106 mg/dL (75-110); Magnesium 1.8 mg/dL (1.6-2.3); Potassium 3.7 mmol/L (3.4-5.0); Sodium 133 mmol/L (137-145)
[2020-05-01] MEDS: ALBUMIN HUMAN 25% 25 GM/100 ML 100 ML IVPB ×2 (09:43→16:06)
[2020-05-01] MEDS: MAGNESIUM OXIDE 400 MG TABLET PO (09:43)
[2020-05-01] MEDS: allopurinoL 150 MG TABLET PO (09:43)
[2020-05-01] MEDS: NICOTINE (*PBKC) 14 MG PATCH 1 PATCH TRANSDERM (09:43)
[2020-05-01] MEDS: SPIRONOLACTONE 25 MG TABLET PO (09:43)
[2020-05-01] MEDS: TAMSULOSIN HCL 0.4 MG CAPSULE PO (09:43)
[2020-05-01] MEDS: FUROSEMIDE 20 MG TABLET PO (09:55)
--- NOTE | 2020-05-01 10:29 | WPDGIPROGNO ---
Progress Note: A&P Additional Plan Patient improving. No longer short of breath. States his abdomen may be at baseline. Physical exam reveals patient be alert and oriented. Lungs are clear. Heart without murmur. Abdomen with modest distention some shifting dullness. No organomegaly palpable. Nontender. Extremities with 1+ edema at the ankles. Impression 1. Alcoholic cirrhosis of the liver. Continue supportive care. 2. Ascites secondary to cirrhosis. Continue low-salt diet. Aldactone and Lasix for diuresis. Monitor electrolytes. May need to adjust dose depending on weight and electrolytes. Daily weights are advised. 3. 1-1/2cm pancreatic mass. Consider follow-up CT scan with pancreatic protocol in several months. Alternatively referral to [facility] for endoscopic ultrasound and FNA may be beneficial. Apparently this was to be arranged previously. Subjective Date/time seen: 05/01/20 10:29 Objective Data Vital Signs Vital Signs: Vital Signs - 24 hr 04/30/20 14:05 04/30/20 14:35 04/30/20 15:25 Temperature 98.0 F Pulse Rate 98 Respiratory Rate 18 Blood Pressure 90/55 L Pulse Oximetry 97 97 91 04/30/20 19:53 04/30/20 21:20 05/01/20 05:41 Temperature 98.9 F 98.3 F Pulse Rate 120 H 110 H Respiratory Rate 18 20 Blood Pressure 103/62 110/72 Pulse Oximetry 93 93 90 05/01/20 08:00 Temperature Pulse Rate Respiratory Rate Blood Pressure Pulse Oximetry 95 Intake/Output Intake/Output: Intake & Output 04/28/20 04/29/20 04/30/20 05/01/20 23:59 23:59 23:59 23:59 Intake Total 1520 2010 470 150 Output Total 6750 6260 1825 700 [facility] -5230 -440 -1355 -550 Meds/Results Medications: Active Medications Generic Name Dose Route Start Last Admin Trade Name Freq PRN Reason Stop Dose Admin Allopurinol 150 mg 04/28/20 09:00 05/01/20 09:43 Allopurinol 150 Mg Tablet PO 150 mg DAILY AMBER Administration Alprazolam 0.5 mg 04/27/20 16:42 05/01/20 05:55 Alprazolam (*Crx) 0.5 Mg Tablet PO 0.5 mg QID PRN Administration Anxiety Calcium Carbonate 200 mg 04/30/20 16:42 05/01/20 05:55 Calcium Carbonate (Tums) 500 Mg (200 Mg Elemental) PO 200 mg Q6H PRN Administration Indigestion Furosemide 20 mg 04/28/20 09:00 05/01/20 09:55 Furosemide 20 Mg Tablet PO 20 mg DAILY AMBER Administration Furosemide 40 mg 04/29/20 18:00 04/29/20 22:31 Furosemide Inj 40 Mg/4 Ml Vial IV PUSH Not Given 1000,1800 AMBER Albumin Human 100 mls @ 60 mls/hr 04/28/20 17:00 05/01/20 09:43 Albutein IVPB 60 mls/hr BID AMBER Administration Lidocaine 2 patch 04/29/20 17:00 04/30/20 16:31 Lidocaine 5% Patch TRANSDERM 2 patch DAILY@1700 AMBER Administration Magnesium Oxide 400 mg 04/30/20 10:10 05/01/20 09:43 Magnesium Oxide 400 Mg Tablet PO 400 mg QAM AMBER Administration Nicotine 1 patch 04/28/20 11:45 05/01/20 09:43 Nicotine (*Pbkc) 14 Mg Patch TRANSDERM 1 patch QAM AMBER Administration Spironolactone 25 mg 04/28/20 09:00 05/01/20 09:43 Spironolactone 25 Mg Tablet PO 25 mg QAM AMBER Administration Spironolactone 100 mg 04/28/20 16:00 04/30/20 16:31 Spironolactone 50 Mg Tablet PO 100 mg 1600 AMBER Administration Tamsulosin HCl 0.4 mg 04/28/20 09:00 05/01/20 09:43 Tamsulosin Hcl 0.4 Mg Capsule PO 0.4 mg DAILY AMBER Administration Radiology Results: ITS Impressions Chest X-Ray 04/28/20 12:12 Impression: 1: Bilateral perihilar and basilar infiltrates may represent mild edema versus pneumonia. Paracentesis Ultrasound 04/28/20 13:30 IMPRESSION: 1. Successful ultrasound-guided paracentesis, with removal of approximately 5 L of fluid. Labs Labs: Laboratory Results - last 24 hr 05/01/20 05/01/20 05/01/20 05:32 05:32 05:32 WBC 5.8 RBC 2.99 L Hgb 9.4 L Hct 27.1 L MCV 90.6 MCH 31.4 MCHC 34.7 RDW 16.7 H Plt Count 138 L MPV 9.0 PT 23.9 H I
--- NOTE | 2020-05-01 14:24 | PM.IMPN ---
Progress Note: A&P Assessment and Plan (1) Cirrhosis of liver with ascites: Qualifiers: Hepatic cirrhosis type: alcoholic cirrhosis Qualified Code(s): K70.31 - Alcoholic cirrhosis of liver with ascites Code(s): K74.60 - Unspecified cirrhosis of liver; R18.8 - Other ascites Status: Acute Assessment and Plan: Oxygen IV lasix bid albumin before lasix, aldactone at 4 pm 100mg Pt going for second paracentesis today D/w GI regarding gross fluid overload 05/01/20 14:24 Patient is 60-year-old male with history of alcohol abuse he has been sober for last 3 months presented emergency department with a complaint shortness of breath secondary to large ascites on 04/27/20 patient had a paracentesis and 5 L was collected, his symptoms were persistenting and patient had another paracentesis on 04/28 and another 5 L was collected patient is seen by GI and been vigorously diuresed with Lasix, spironolactone and albumin, patient is being urinating well, there is also concern the patient may have a pancreatic mass he was to be seen at the [facility] further evaluation. Patient states today05/01 he is not as short of breath compared to when he arrived denies any fever or chills, plan is to continue to diurese the patient as much as possible and avoid paracentesis. Patient is now on oral lasix and and spironolactone as well as IV albumin, Patient stats his ascites is improving and is not as painful, patient is instructed to minimize oral fluid intake and he has agreed. Patient will be seen by GI and further recommendation to follow. Patient was to follow-up outpatient with a specialist at [place] but missed the appointment. unsure whether this is pancreatic cancer CEA 19-9 ordered still pending. (2) Mass of pancreas: Code(s): K86.89 - Other specified diseases of pancreas Status: Chronic Assessment and Plan: Patient was to follow-up outpatient with a specialist at [place] but missed the appointment. unsure whether this is pancreatic cancer CEA 19-9 ordered still (3) BPH (benign prostatic hyperplasia): Code(s): N40.0 - Benign prostatic hyperplasia without lower urinary tract symptoms Status: Chronic Assessment and Plan: Continue with tamsulosin (4) Hypertension: Code(s): I10 - Essential (primary) hypertension Status: Chronic Assessment and Plan: patient's blood pressure is soft at this time going to hold losartan today. (5) Chronic anemia: Code(s): D64.9 - Anemia, unspecified Status: Chronic Assessment and Plan: Continue to monitor. (6) Alcohol abuse: Code(s): F10.10 - Alcohol abuse, uncomplicated Status: Acute Assessment and Plan: Patient stated he has abstained for the last 2-3 months. watch for any DTs Subjective Date/time seen: 05/01/20 14:24 Patient is 60-year-old male with history of alcohol abuse he has been sober for last 3 months presented emergency department with a complaint shortness of breath secondary to large ascites on 04/27/20 patient had a paracentesis and 5 L was collected, his symptoms were persistenting and patient had another paracentesis on 04/28 and another 5 L was collected patient is seen by GI and been vigorously diuresed with Lasix, spironolactone and albumin, patient is being urinating well, there is also concern the patient may have a pancreatic mass he was to be seen at the [facility] further evaluation. Patient states today05/01 he is not as short of breath compared to when he arrived denies any fever or chills, plan is to continue to diurese the patient as much as possible and avoid paracentesis. Patient is now on oral lasix and and spironolactone as well as IV albumin, Patient stats his ascites is improving and is not as painful, patient is instructed to minimize oral fluid intake and he has agreed. Patient will be seen by GI and further recommendation to follow. Patient was to follow
--- NOTE | 2020-05-01 14:28 | PCPTNOTE ---
Attempted PT evaluation. Pt refusing therapy stating he's too fatigued from working with OT. Will try again tomorrow morning.
[2020-05-01] MEDS: SPIRONOLACTONE 50 MG TABLET 100 MG PO (16:05)
[2020-05-01] MEDS: LIDOCAINE 5% PATCH 2 PATCH TRANSDERM (16:06)
[2020-05-02 05:52] LABS: Hematocrit 26.5 % (42.0-52.0); Hemoglobin 9.2 g/dL (14.0-18.0); Mean Corpuscular HGB Conc 34.7 g/dl (32-36); Mean Corpuscular Hemoglobin 31.9 pg (26-34); Mean Platelet Volume 9.4 fl (7.4-10.4); Platelet Count Result 126 k/mm3 (150-375); Red Blood Count 2.88 M/mm3 (4.6-6.20); Red Cell Distribution Width 16.7 % (11.5-14.5); White Blood Count 4.6 K/mm3 (4.5-10.0)
[2020-05-02 05:53] LABS: INR 2.3; Prothrombin Time 25.8 Seconds (11.1-14.7)
[2020-05-02 05:54] VITALS: BP 117/78; PULSE 120; RESP 18; TEMP 39.3; O2SAT 94
[2020-05-02 05:57] LABS: Alanine Aminotransferase 12 U/L (4-50); Albumin Level 2.5 g/dL (3.5-5.1); Alkaline Phosphatase 55 U/L (38-126); Anion Gap 4 mmol/L (8-16); Aspartate Amino Transferase 40 U/L (17-59); Blood Urea Nitrogen 10 mg/dL (9-20); Calcium 7.8 mg/dL (8.4-10.2); Carbon Dioxide 27 mmol/L (22-30); Chloride 100 mmol/L (98-107); Estimated CRCL calculation 116 ml/min; Estimated Glomerular Filt Rate > 60; Glucose 92 mg/dL (75-110); Magnesium 1.7 mg/dL (1.6-2.3); Sodium 131 mmol/L (137-145)
[2020-05-02 06:10] VITALS: TEMP 39.2
[2020-05-02] MEDS: ALPRAZolam (*CRX) 0.5 MG TABLET PO ×2 (06:10→17:36)
[2020-05-02] MEDS: ACETAMINOPHEN 325 MG TABLET 650 MG PO (06:10)
[2020-05-02 06:50] LABS: LDH Peritoneal Fluid 28 U/L (<63); Total Protein Peritoneal Fluid <3.0 g/dL
[2020-05-02 08:15] VITALS: O2SAT 96
[2020-05-02] MEDS: ALBUMIN HUMAN 25% 25 GM/100 ML 100 ML IVPB (08:16)
[2020-05-02] MEDS: SPIRONOLACTONE 25 MG TABLET PO (09:56)
[2020-05-02] MEDS: NICOTINE (*PBKC) 14 MG PATCH 1 PATCH TRANSDERM (09:56)
[2020-05-02] MEDS: MAGNESIUM OXIDE 400 MG TABLET PO ×2 (09:56)
[2020-05-02] MEDS: allopurinoL 150 MG TABLET PO (09:56)
[2020-05-02] MEDS: FUROSEMIDE 20 MG TABLET PO (09:56)
[2020-05-02] MEDS: TAMSULOSIN HCL 0.4 MG CAPSULE PO (09:56)
--- NOTE | 2020-05-02 10:45 | WPDGIPROGNO ---
Progress Note: A&P Additional Plan Patient appears to be diuresing well. Feels much more comfortable. No longer short of breath. Tolerating diet. Physical exam reveals Vital Signs to be stable. Lungs are clear. Abdomen is soft. No organomegaly. Extremities with modest mild edema at this point. Impression 1. Alcoholic cirrhosis of the liver. Continued supportive care. Alcohol abstinence strongly encourage. 2. Ascites. Improving with diuresis. Plan to continue Aldactone and Lasix. May need to decrease dose somewhat. Continue to monitor electrolytes intermittently. To ensure stability. Avoid dehydration. 2 g sodium diet encouraged. Albumin can be demented decreased period as well. 3. Pancreatic lesion. Identified by CT scan. Follow-up CT scan in several months advised. Patient may benefit from EUS at tertiary care center. CA 19-9 tumor marker pending still. Subjective Date/time seen: 05/02/20 10:45 Objective Data Vital Signs Vital Signs: Vital Signs - 24 hr 05/01/20 14:00 05/01/20 21:18 05/01/20 21:35 Temperature 98.0 F 102.5 F H 99.8 F H Pulse Rate 122 H 119 H Respiratory Rate 18 18 Blood Pressure 98/66 L 109/68 Pulse Oximetry 97 94 05/01/20 21:50 05/02/20 05:54 05/02/20 06:10 Temperature 102.7 F H 102.5 F H Pulse Rate 120 H Respiratory Rate 18 Blood Pressure 117/78 Pulse Oximetry 94 94 05/02/20 08:15 Temperature Pulse Rate Respiratory Rate Blood Pressure Pulse Oximetry 96 Intake/Output Intake/Output: Intake & Output 04/29/20 04/30/20 05/01/20 05/02/20 23:59 23:59 23:59 23:59 Intake Total 2009 470 500 590 Output Total 0 1055 1100 900 Balance -440 -1355 -600 -310 Meds/Results Medications: Active Medications Generic Name Dose Route Start Last Admin Trade Name Freq PRN Reason Stop Dose Admin Acetaminophen 650 mg 05/02/20 06:00 05/02/20 06:10 Acetaminophen 325 Mg Tablet PO 650 mg Q4H PRN Administration Mild Pain (1-3) or Fever Allopurinol 150 mg 04/28/20 09:00 05/02/20 09:56 Allopurinol 150 Mg Tablet PO 150 mg DAILY AMBER Administration Alprazolam 0.5 mg 12/04/20 16:42 05/02/20 06:10 Alprazolam (*Crx) 0.5 Mg Tablet PO 0.5 mg QID PRN Administration Anxiety Calcium Carbonate 200 mg 04/30/20 16:42 05/01/20 18:06 Calcium Carbonate (Tums) 500 Mg (200 Mg Elemental) PO 200 mg Q6H PRN Administration Indigestion Furosemide 20 mg 04/28/20 09:00 05/02/20 09:56 Furosemide 20 Mg Tablet PO 20 mg DAILY AMBER Administration Albumin Human 100 mls @ 60 mls/hr 04/28/20 17:00 05/02/20 09:57 Albutein IVPB Infused BID AMBER Infusion Lidocaine 2 patch 04/29/20 17:00 05/01/20 16:06 Lidocaine 5% Patch TRANSDERM 2 patch DAILY@1700 AMBER Administration Magnesium Oxide 400 mg 04/30/20 10:10 05/02/20 09:56 Magnesium Oxide 400 Mg Tablet PO 400 mg QAM AMBER Administration Magnesium Oxide 400 mg 05/02/20 09:10 05/02/20 09:56 Magnesium Oxide 400 Mg Tablet PO 400 mg QAM AMBER Administration Nicotine 1 patch 04/28/20 11:45 05/02/20 09:56 Nicotine (*Pbkc) 14 Mg Patch TRANSDERM 1 patch QAM AMBER Administration Spironolactone 25 mg 04/28/20 09:00 05/02/20 09:56 Spironolactone 25 Mg Tablet PO 25 mg QAM AMBER Administration Spironolactone 100 mg 04/28/20 16:00 05/01/20 16:05 Spironolactone 50 Mg Tablet PO 100 mg 1600 AMBER Administration Tamsulosin HCl 0.4 mg 04/28/20 09:00 05/02/20 09:56 Tamsulosin Hcl 0.4 Mg Capsule PO 0.4 mg DAILY AMBER Administration Radiology Results: ITS Impressions Chest X-Ray 04/28/20 12:12 Impression: 1: Bilateral perihilar and basilar infiltrates may represent mild edema versus pneumonia. Paracentesis Ultrasound 04/28/20 13:30 IMPRESSION: 1. Successful ultrasound-guided paracentesis, with removal of approximately 5 L of fluid. Labs Labs: Laboratory Results - last 24 hr
[2020-05-02 13:22] LABS: Albumin Peritoneal Fluid 0.7 g/dL
[2020-05-02 14:00] VITALS: BP 117/75; PULSE 111; RESP 16; TEMP 36.8; O2SAT 92
[2020-05-02] MEDS: LIDOCAINE 5% PATCH 2 PATCH TRANSDERM (16:47)
[2020-05-02] MEDS: SPIRONOLACTONE 50 MG TABLET 100 MG PO (16:47)
[2020-05-02] MEDS: FUROSEMIDE INJ 40 MG/4 ML VIAL IV PUSH (16:47)
--- NOTE | 2020-05-02 17:26 | PM.IMPN ---
Progress Note: A&P Assessment and Plan (1) Cirrhosis of liver with ascites: Qualifiers: Hepatic cirrhosis type: alcoholic cirrhosis Qualified Code(s): K70.31 - Alcoholic cirrhosis of liver with ascites Code(s): K74.60 - Unspecified cirrhosis of liver; R18.8 - Other ascites Status: Acute Assessment and Plan: Oxygen IV lasix bid albumin before lasix, aldactone at 4 pm 100mg Pt going for second paracentesis today D/w GI regarding gross fluid overload 05/02/20 17:26 Patient is 60-year-old male with history of alcohol abuse he has been sober for last 3 months presented emergency department with a complaint shortness of breath secondary to large ascites on 04/27/20 patient had a paracentesis and 5 L was collected, his symptoms were persistenting and patient had another paracentesis on 04/28 and another 5 L was collected patient is seen by GI and been vigorously diuresed with Lasix, spironolactone and albumin, patient is being urinating well, there is also concern the patient may have a pancreatic mass he was to be seen at the [facility] further evaluation. Patient states today05/01 he is not as short of breath compared to when he arrived denies any fever or chills, plan is to continue to diurese the patient as much as possible and avoid paracentesis. Patient is now on oral lasix and and spironolactone as well as IV albumin, patient IV Lasix was put on hold in an attempt to orally diurese the patient however today patient ascites seems to be worsening will restart IV Lasix will continue to monitor, patient is working with PT OT Patient was to follow-up outpatient with a specialist at [place] but missed the appointment. unsure whether this is pancreatic cancer CEA 19-9 ordered still pending. (2) Mass of pancreas: Code(s): K86.89 - Other specified diseases of pancreas Status: Chronic Assessment and Plan: Patient was to follow-up outpatient with a specialist at [place] but missed the appointment. unsure whether this is pancreatic cancer CEA 19-9 ordered still (3) BPH (benign prostatic hyperplasia): Code(s): N40.0 - Benign prostatic hyperplasia without lower urinary tract symptoms Status: Chronic Assessment and Plan: Continue with tamsulosin (4) Hypertension: Code(s): I10 - Essential (primary) hypertension Status: Chronic Assessment and Plan: patient's blood pressure is soft at this time going to hold losartan today. (5) Chronic anemia: Code(s): D64.9 - Anemia, unspecified Status: Chronic Assessment and Plan: Continue to monitor. (6) Alcohol abuse: Code(s): F10.10 - Alcohol abuse, uncomplicated Status: Acute Assessment and Plan: Patient stated he has abstained for the last 2-3 months. watch for any DTs Subjective Date/time seen: 05/02/20 17:26 Patient is 60-year-old male with history of alcohol abuse he has been sober for last 3 months presented emergency department with a complaint shortness of breath secondary to large ascites on 04/27/20 patient had a paracentesis and 5 L was collected, his symptoms were persistenting and patient had another paracentesis on 04/28 and another 5 L was collected patient is seen by GI and been vigorously diuresed with Lasix, spironolactone and albumin, patient is being urinating well, there is also concern the patient may have a pancreatic mass he was to be seen at the [facility] further evaluation. Patient states today05/01 he is not as short of breath compared to when he arrived denies any fever or chills, plan is to continue to diurese the patient as much as possible and avoid paracentesis. Patient is now on oral lasix and and spironolactone as well as IV albumin, patient IV Lasix was put on hold in an attempt to orally diurese the patient however today patient ascites seems to be worsening will restart IV Lasix will continue to monitor, patient is working with PT OT Patient
[2020-05-02 20:31] VITALS: BP 110/65; PULSE 108; RESP 18; TEMP 38; O2SAT 97
[2020-05-02 21:35] VITALS: O2SAT 96
[2020-05-03 06:00] VITALS: BP 102/73; PULSE 97; RESP 18; TEMP 37.4; O2SAT 93
[2020-05-03 06:08] LABS: Hemoglobin 9.1 g/dL (14.0-18.0); Mean Corpuscular HGB Conc 33.7 g/dl (32-36); Mean Corpuscular Hemoglobin 31.3 pg (26-34); Mean Corpuscular Volume 92.8 fl (80-100); Platelet Count Result 132 k/mm3 (150-375); Red Blood Count 2.91 M/mm3 (4.6-6.20); Red Cell Distribution Width 16.7 % (11.5-14.5); White Blood Count 4.9 K/mm3 (4.5-10.0)
[2020-05-03 06:20] LABS: Alanine Aminotransferase 12 U/L (4-50); Albumin Level 2.4 g/dL (3.5-5.1); Alkaline Phosphatase 54 U/L (38-126); Anion Gap 4 mmol/L (8-16); Aspartate Amino Transferase 38 U/L (17-59); Bilirubin,Total 1.5 mg/dL (0.2-1.3); Blood Urea Nitrogen 12 mg/dL (9-20); Calcium 7.8 mg/dL (8.4-10.2); Carbon Dioxide 28 mmol/L (22-30); Chloride 98 mmol/L (98-107); Estimated CRCL calculation 103 ml/min; Estimated Glomerular Filt Rate > 60; Glucose 90 mg/dL (75-110); INR 2.9; Magnesium 1.7 mg/dL (1.6-2.3); Potassium 3.8 mmol/L (3.4-5.0); Prothrombin Time 30.8 Seconds (11.1-14.7); Sodium 130 mmol/L (137-145)
[2020-05-03 08:00] VITALS: O2SAT 98
--- NOTE | 2020-05-03 10:19 | WPDGIPROGNO ---
Progress Note: A&P Additional Plan Patient alert and comfortable this morning. Tolerating diet. Breathing easily. Physical exam reveals patient to be alert. Temperature was noted last evening period greater than 101. lungs appear clear. Abdomen is soft only mild distention. No tenderness, no organomegaly. Extremities with less pedal edema today. Impression 1. Fever. Etiology unclear. Different difficult automatically attribute to be ascites. Consider repeat paracentesis. Also may want to check urinalysis and chest x-ray. 2. Alcoholic cirrhosis of the liver. Continue alcohol abstinence. Supportive care. 3. Ascites. This is improving significantly on diuretics. Continue low-salt diet. Adjust diuretics to maintain current weight. Follow electrolytes conservatively. After discharge. Subjective Date/time seen: 05/03/20 10:19 Objective Data Vital Signs Vital Signs: Vital Signs - 24 hr 05/02/20 14:00 05/02/20 20:31 05/02/20 21:35 Temperature 98.3 F 100.4 F H Pulse Rate 111 H 108 H Respiratory Rate 16 18 Blood Pressure 117/75 110/65 Pulse Oximetry 92 97 96 05/03/20 06:00 Temperature 99.4 F Pulse Rate 97 Respiratory Rate 18 Blood Pressure 102/73 Pulse Oximetry 93 Intake/Output Intake/Output: Intake & Output 04/30/20 05/01/20 05/02/20 05/03/20 23:59 23:59 23:59 23:59 Intake Total 865 834 9303 Output Total 1825 1100 4250 300 [facility] -1355 -600 -3220 -300 Meds/Results Medications: Active Medications Generic Name Dose Route Start Last Admin Trade Name Freq PRN Reason Stop Dose Admin Acetaminophen 650 mg 05/02/20 06:00 05/02/20 06:10 Acetaminophen 325 Mg Tablet PO 650 mg Q4H PRN Administration Mild Pain (1-3) or Fever Allopurinol 150 mg 04/28/20 09:00 05/02/20 09:56 Allopurinol 150 Mg Tablet PO 150 mg DAILY AMBER Administration Alprazolam 0.5 mg 04/27/20 16:42 05/02/20 17:36 Alprazolam (*Crx) 0.5 Mg Tablet PO 0.5 mg QID PRN Administration Anxiety Calcium Carbonate 200 mg 04/30/20 16:42 05/01/20 18:06 Calcium Carbonate (Tums) 500 Mg (200 Mg Elemental) PO 200 mg Q6H PRN Administration Indigestion Furosemide 40 mg 05/02/20 17:00 05/02/20 16:47 Furosemide Inj 40 Mg/4 Ml Vial IV PUSH 40 mg BID AMBER Administration Lidocaine 2 patch 04/29/20 17:00 05/02/20 16:47 Lidocaine 5% Patch TRANSDERM 2 patch DAILY@1700 AMBER Administration Magnesium Oxide 400 mg 04/30/20 10:10 05/02/20 09:56 Magnesium Oxide 400 Mg Tablet PO 400 mg QAM AMBER Administration Nicotine 1 patch 04/28/20 11:45 05/02/20 09:56 Nicotine (*Pbkc) 14 Mg Patch TRANSDERM 1 patch QAM AMBER Administration Spironolactone 25 mg 04/28/20 09:00 05/02/20 09:56 Spironolactone 25 Mg Tablet PO 25 mg QAM AMBER Administration Spironolactone 100 mg 04/28/20 16:00 05/02/20 16:47 Spironolactone 50 Mg Tablet PO 100 mg 1600 AMBER Administration Tamsulosin HCl 0.4 mg 04/28/20 09:00 05/02/20 09:56 Tamsulosin Hcl 0.4 Mg Capsule PO 0.4 mg DAILY AMBER Administration Radiology Results: ITS Impressions Chest X-Ray 04/28/20 12:12 Impression: 1: Bilateral perihilar and basilar infiltrates may represent mild edema versus pneumonia. Paracentesis Ultrasound 04/28/20 13:30 IMPRESSION: 1. Successful ultrasound-guided paracentesis, with removal of approximately 5 L of fluid. Labs Labs: Laboratory Results - last 24 hr 04/27/20 05/03/20 05/03/20 14:51 05:39 05:39 WBC 4.9 RBC 2.91 L Hgb 9.1 L Hct 27.0 L MCV 92.8 MCH 31.3 MCHC 33.7 RDW 16.7 H Plt Count 132 L MPV 10.0 PT 30.8 H INR 2.9 Sodium Potassium Chloride Carbon Dioxide Anion Gap BUN Creatinine Estim Creat Clear Calc Estimated GFR Glucose Calcium Magnesium Total Bilirubin AST ALT Alkaline Phosphatase Total Protein Albumin Periton
[2020-05-03] MEDS: allopurinoL 150 MG TABLET PO (11:32)
[2020-05-03] MEDS: NICOTINE (*PBKC) 14 MG PATCH 1 PATCH TRANSDERM (11:32)
[2020-05-03] MEDS: MAGNESIUM OXIDE 400 MG TABLET PO (11:32)
[2020-05-03] MEDS: TAMSULOSIN HCL 0.4 MG CAPSULE PO (11:32)
[2020-05-03] MEDS: SPIRONOLACTONE 25 MG TABLET PO (11:33)
[2020-05-03] MEDS: FUROSEMIDE INJ 40 MG/4 ML VIAL IV PUSH (11:34)
[2020-05-03] MEDS: ALPRAZolam (*CRX) 0.5 MG TABLET PO ×2 (11:38→17:24)
[2020-05-03 14:58] VITALS: BP 98/65; PULSE 105; RESP 18; TEMP 36.4; O2SAT 95
[2020-05-03 15:17] LABS: Add Urine Microscopic? YES; Appearance Urine Clear (Clear); Bacteria Urine Trace /hpf; Bilirubin Urine Negative (Negative); Blood Urine 1+ (Negative); Color Urine Straw (Yellow); Glucose Urine UA Negative (Negative); Ketones Urine Negative (Negative); Leukocyte Esterase Ur Negative LEU/UL (NEGATIVE); Mucus Urine Rare /lpf; Nitrate Urine Negative (Negative); Protein Urine Negative (Negative); Specific Grav Ur 1.008 (1.001-1.035); Urobilinogen Urine Negative mg/dL (<2.0); WBC Urine 0-3 /hpf (0-3)
[2020-05-03] MEDS: SPIRONOLACTONE 50 MG TABLET 100 MG PO (17:22)
[2020-05-03] MEDS: LIDOCAINE 5% PATCH 2 PATCH TRANSDERM (17:22)
[2020-05-03] MEDS: CALCIUM CARBONATE (TUMS) 500 MG (200 MG ELEMENTAL) PO (17:24)
--- NOTE | 2020-05-03 17:45 | PM.IMPN ---
Progress Note: A&P Assessment and Plan (1) Cirrhosis of liver with ascites: Qualifiers: Hepatic cirrhosis type: alcoholic cirrhosis Qualified Code(s): K70.31 - Alcoholic cirrhosis of liver with ascites Code(s): K74.60 - Unspecified cirrhosis of liver; R18.8 - Other ascites Status: Acute Assessment and Plan: Oxygen IV lasix bid albumin before lasix, aldactone at 4 pm 100mg Pt going for second paracentesis today D/w GI regarding gross fluid overload 05/03/20 17:45 Patient is 60-year-old male with history of alcohol abuse he has been sober for last 3 months presented emergency department with a complaint shortness of breath secondary to large ascites on 04/27/20 patient had a paracentesis and 5 L was collected, his symptoms were persistenting and patient had another paracentesis on 04/28 and another 5 L was collected patient is seen by GI and been vigorously diuresed with Lasix, spironolactone and albumin, patient is being urinating well, there is also concern the patient may have a pancreatic mass he was to be seen at the [facility] further evaluation. Patient states today05/01 he is not as short of breath compared to when he arrived denies any fever or chills, plan is to continue to diurese the patient as much as possible and avoid paracentesis. Patient was now on oral lasix and and spironolactone as well as IV albumin, we had stopped IV Lasix in an attempt to orally diurese the patient however on 05/02 patient ascites seems to be worsening restarted IV Lasix, today 05/03 patient ascites has improved, will stop IV Lasix place the patient on oral lasix, will monitor, if remains clinically stable will do discharge planning tomorrow patient is working with PT OT and is able to do his ADL with minimum support, there was one episode of low grad fever on 05/02 which is attributes to warm blankets, Patient was to follow-up outpatient with a specialist at [place] but missed the appointment. unsure whether this is pancreatic cancer CEA 19-9 ordered still pending. (2) Mass of pancreas: Code(s): K86.89 - Other specified diseases of pancreas Status: Chronic Assessment and Plan: Patient was to follow-up outpatient with a specialist at [place] but missed the appointment. unsure whether this is pancreatic cancer CEA 19-9 ordered still (3) BPH (benign prostatic hyperplasia): Code(s): N40.0 - Benign prostatic hyperplasia without lower urinary tract symptoms Status: Chronic Assessment and Plan: Continue with tamsulosin (4) Hypertension: Code(s): I10 - Essential (primary) hypertension Status: Chronic Assessment and Plan: patient's blood pressure is soft at this time going to hold losartan today. (5) Chronic anemia: Code(s): D64.9 - Anemia, unspecified Status: Chronic Assessment and Plan: Continue to monitor. (6) Alcohol abuse: Code(s): F10.10 - Alcohol abuse, uncomplicated Status: Acute Assessment and Plan: Patient stated he has abstained for the last 2-3 months. watch for any DTs Subjective Date/time seen: 05/03/20 17:45 Patient is 60-year-old male with history of alcohol abuse he has been sober for last 3 months presented emergency department with a complaint shortness of breath secondary to large ascites on 04/27/20 patient had a paracentesis and 5 L was collected, his symptoms were persistenting and patient had another paracentesis on 04/28 and another 5 L was collected patient is seen by GI and been vigorously diuresed with Lasix, spironolactone and albumin, patient is being urinating well, there is also concern the patient may have a pancreatic mass he was to be seen at the [facility] further evaluation. Patient states today05/01 he is not as short of breath compared to when he arrived denies any fever or chills, plan is to continue to diurese the patient as much as possible and avoid paracentesis. Patient
[2020-05-03 20:14] VITALS: BP 95/60; PULSE 99; RESP 18; TEMP 37.2; O2SAT 97
[2020-05-03 21:40] VITALS: O2SAT 97
[2020-05-04 05:46] LABS: Hematocrit 26.7 % (42.0-52.0); Hemoglobin 9.2 g/dL (14.0-18.0); Mean Corpuscular HGB Conc 34.5 g/dl (32-36); Mean Corpuscular Hemoglobin 31.6 pg (26-34); Mean Corpuscular Volume 91.8 fl (80-100); Mean Platelet Volume 9.5 fl (7.4-10.4); Platelet Count Result 137 k/mm3 (150-375); Red Blood Count 2.91 M/mm3 (4.6-6.20); Red Cell Distribution Width 16.8 % (11.5-14.5); White Blood Count 5.7 K/mm3 (4.5-10.0)
[2020-05-04 05:51] LABS: INR 2.4; Prothrombin Time 27.1 Seconds (11.1-14.7)
[2020-05-04 05:56] LABS: Alanine Aminotransferase 13 U/L (4-50); Albumin Level 2.4 g/dL (3.5-5.1); Alkaline Phosphatase 61 U/L (38-126); Anion Gap 5 mmol/L (8-16); Aspartate Amino Transferase 42 U/L (17-59); Bilirubin,Total 1.1 mg/dL (0.2-1.3); Blood Urea Nitrogen 14 mg/dL (9-20); Calcium 7.7 mg/dL (8.4-10.2); Carbon Dioxide 29 mmol/L (22-30); Chloride 97 mmol/L (98-107); Estimated CRCL calculation 103 ml/min; Estimated Glomerular Filt Rate > 60; Glucose 91 mg/dL (75-110); Magnesium 1.8 mg/dL (1.6-2.3); Potassium 3.6 mmol/L (3.4-5.0); Sodium 131 mmol/L (137-145)
[2020-05-04 06:00] VITALS: BP 99/59; PULSE 103; RESP 16; TEMP 37.3; O2SAT 97
[2020-05-04] MEDS: CALCIUM CARBONATE (TUMS) 500 MG (200 MG ELEMENTAL) PO ×2 (06:18→09:59)
--- NOTE | 2020-05-04 09:11 | WPDGIPROGNO ---
Progress Note: A&P Additional Plan Patient feels good today. Remains on supplemental oxygen. He denies being short of breath. Apparently had a fever over the last several days. Physical exam reveals patient be afebrile today. HEENT exam unremarkable. Lungs reveal a few rales. Heart without murmur. Abdomen much softer. Bowel sounds are present no organomegaly evident extremities with minimal edema at This time. Impression 1. Alcoholic cirrhosis of the liver. Strict alcohol avoidance encourage. Supportive care. 2. Ascites and peripheral edema. This is improved dramatically with diuresis. Plan to continue Lasix and Aldactone after discharge. Continue low-salt diet. Monitor electrolytes intermittently. Daily weights may be beneficial after discharge 3. Fever. Etiology unclear. Blood cultures and urine culture pending. Chest x-ray reveals possible pneumonia with pleural effusion. Primary care service is considering antibiotic therapy. Repeat paracentesis if no other etiology identified. Initial paracentesis revealed no evidence for infection. 4. Abnormal chest x-ray suggesting pneumonia pleural effusion. Pleural effusion could be accounted for by his a cirrhosis ascites and peripheral edema. Diuresis will continue for this. Subjective Date/time seen: 05/04/20 09:11 Objective Data Vital Signs Vital Signs: Vital Signs - 24 hr 05/03/20 14:58 05/03/20 20:14 05/03/20 21:40 Temperature 97.5 F L 98.9 F Pulse Rate 105 H 99 Respiratory Rate 18 18 Blood Pressure 98/65 L 95/60 L Pulse Oximetry 95 97 97 05/04/20 06:00 Temperature 99.1 F Pulse Rate 103 H Respiratory Rate 16 Blood Pressure 99/59 L Pulse Oximetry 97 Intake/Output Intake/Output: Intake & Output 05/01/20 05/02/20 05/03/20 05/04/20 23:59 23:59 23:59 23:59 Intake Total 500 1030 360 200 Output Total 1100 4250 1350 850 Balance -600 -3220 -990 -650 Meds/Results Medications: Active Medications Generic Name Dose Route Start Last Admin Trade Name Freq PRN Reason Stop Dose Admin Acetaminophen 650 mg 05/02/20 06:00 05/02/20 06:10 Acetaminophen 325 Mg Tablet PO 650 mg Q4H PRN Administration Mild Pain (1-3) or Fever Allopurinol 150 mg 04/28/20 09:00 05/03/20 11:32 Allopurinol 150 Mg Tablet PO 150 mg DAILY AMBER Administration Alprazolam 0.5 mg 04/27/20 16:42 05/03/20 17:24 Alprazolam (*Crx) 0.5 Mg Tablet PO 0.5 mg QID PRN Administration Anxiety Calcium Carbonate 200 mg 04/30/20 16:42 05/04/20 06:18 Calcium Carbonate (Tums) 500 Mg (200 Mg Elemental) PO 200 mg Q6H PRN Administration Indigestion Furosemide 40 mg 05/04/20 09:00 Furosemide 40 Mg Tablet PO DAILY AMBER Lidocaine 2 patch 04/29/20 17:00 05/03/20 17:22 Lidocaine 5% Patch TRANSDERM 2 patch DAILY@1700 AMBER Administration Magnesium Oxide 400 mg 04/30/20 10:10 05/03/20 11:32 Magnesium Oxide 400 Mg Tablet PO 400 mg QAM AMBER Administration Nicotine 1 patch 04/28/20 11:45 05/03/20 11:32 Nicotine (*Pbkc) 14 Mg Patch TRANSDERM 1 patch QAM AMBER Administration Spironolactone 25 mg 04/28/20 09:00 05/03/20 11:33 Spironolactone 25 Mg Tablet PO 25 mg QAM AMBER Administration Spironolactone 100 mg 04/28/20 16:00 05/03/20 17:22 Spironolactone 50 Mg Tablet PO 100 mg 1600 AMBER Administration Tamsulosin HCl 0.4 mg 04/28/20 09:00 05/03/20 11:32 Tamsulosin Hcl 0.4 Mg Capsule PO 0.4 mg DAILY AMBER Administration Radiology Results: ITS Impressions Paracentesis Ultrasound 04/28/20 13:30 IMPRESSION: 1. Successful ultrasound-guided paracentesis, with removal of approximately 5 L of fluid. Chest X-Ray 05/03/20 11:55 IMPRESSION: 1. Mild airspace opacities in right midlung zone, consistent with pulmonary edema versus pneumonia. 2. Small pleural effusions. Labs Labs: Laboratory Results - last 24 hr 05/03/20 05/04/20 05/04/20 14:54
[2020-05-04] MEDS: MAGNESIUM OXIDE 400 MG TABLET PO (09:50)
[2020-05-04] MEDS: TAMSULOSIN HCL 0.4 MG CAPSULE PO (09:50)
[2020-05-04] MEDS: SPIRONOLACTONE 25 MG TABLET PO (09:50)
[2020-05-04] MEDS: FUROSEMIDE 40 MG TABLET PO (09:50)
[2020-05-04] MEDS: allopurinoL 150 MG TABLET PO (09:50)
[2020-05-04] MEDS: NICOTINE (*PBKC) 14 MG PATCH 1 PATCH TRANSDERM (09:51)
[2020-05-04] MEDS: ALPRAZolam (*CRX) 0.5 MG TABLET PO (09:53)
--- NOTE | 2020-05-04 11:35 | PM.DS ---
DS: Admitting Diagnosis Admitting Diagnosis Admitting Diagnosis: liver cirrhosis with ascites,pancreatitis mass DS: Discharge Diagnosis Discharge Diagnosis (1) Cirrhosis of liver with ascites: Qualifiers: Hepatic cirrhosis type: alcoholic cirrhosis Qualified Code(s): K70.31 - Alcoholic cirrhosis of liver with ascites Code(s): K74.60 - Unspecified cirrhosis of liver; R18.8 - Other ascites Status: Acute Assessment and Plan: Oxygen IV lasix bid albumin before lasix, aldactone at 4 pm 100mg Pt going for second paracentesis today D/w GI regarding gross fluid overload 05/03/20 17:45 Patient is 60-year-old male with history of alcohol abuse he has been sober for last 3 months presented emergency department with a complaint shortness of breath secondary to large ascites on 04/27/20 patient had a paracentesis and 5 L was collected, his symptoms were persistenting and patient had another paracentesis on 04/28 and another 5 L was collected patient is seen by GI and been vigorously diuresed with Lasix, spironolactone and albumin, patient is being urinating well, there is also concern the patient may have a pancreatic mass he was to be seen at the [facility] further evaluation. Patient states today05/01 he is not as short of breath compared to when he arrived denies any fever or chills, plan is to continue to diurese the patient as much as possible and avoid paracentesis. Patient was now on oral lasix and and spironolactone as well as IV albumin, we had stopped IV Lasix in an attempt to orally diurese the patient however on 05/02 patient ascites seems to be worsening restarted IV Lasix, today 05/03 patient ascites has improved, will stop IV Lasix place the patient on oral lasix, will monitor, if remains clinically stable will do discharge planning tomorrow patient is working with PT OT and is able to do his ADL with minimum support, there was one episode of low grad fever on 05/02 which is attributes to warm blankets, Patient was to follow-up outpatient with a specialist at [place] but missed the appointment. unsure whether this is pancreatic cancer CEA 19-9 ordered still pending. (2) Mass of pancreas: Code(s): K86.89 - Other specified diseases of pancreas Status: Chronic Assessment and Plan: Patient was to follow-up outpatient with a specialist at [place] but missed the appointment. unsure whether this is pancreatic cancer CEA 19-9 ordered still (3) BPH (benign prostatic hyperplasia): Code(s): N40.0 - Benign prostatic hyperplasia without lower urinary tract symptoms Status: Chronic Assessment and Plan: Continue with tamsulosin (4) Hypertension: Code(s): I10 - Essential (primary) hypertension Status: Chronic Assessment and Plan: patient's blood pressure is soft at this time going to hold losartan today. (5) Chronic anemia: Code(s): D64.9 - Anemia, unspecified Status: Chronic Assessment and Plan: Continue to monitor. (6) Alcohol abuse: Code(s): F10.10 - Alcohol abuse, uncomplicated Status: Acute Assessment and Plan: Patient stated he has abstained for the last 2-3 months. watch for any DTs DS: Summary Hospital Course Reason for hospitalization: Chief complaint: liver cirrhosis with ascites,pancreatitis mass Narrative: Lloyd Scales is a 60 year old male who has a long history of alcoholism. The patient stated that he has been abstinent from alcohol for at least 2-3 months. In he is also down to just a couple cigarettes a day. The patient has a known pancreatic mass. The patient had an appointment to see a specialist at [place] but he did not make it to his appointment For unknown reasons. The patient just stated that he missed it. Patient had a abdominal pelvis CT on 03/19/2020 which was read as cirrhosis of the liver with evidence of portal hypertension. Large amount of ascites. Cholelithiasis.
[2020-05-04 13:05] VITALS: PULSE 88; O2SAT 90
[2020-05-04 13:10] VITALS: PULSE 96; O2SAT 86
[2020-05-04 13:15] VITALS: PULSE 97; O2SAT 87
[2020-05-04 13:20] VITALS: PULSE 104; PULSE 86; O2SAT 90
--- NOTE | 2020-05-04 13:55 | HOMEO2EVAL ---
Home Oxygen Evaluation RC: Home Oxygen (O2) Evaluation Start: 05/04/20 12:51 Freq: ONCE Status: Active Protocol: RPE Activity Type Activity Date Activity User E-Sign Co-Sign Detail Recorded Client Recorded Date Recorded By Document 05/04/20 13:05 DJO [id number] 05/04/20 13:55 DJO Document 05/04/20 13:10 DJO [email or web address] 05/04/20 13:55 DJO Document 05/04/20 13:15 [email or web address] [email or web address] 05/04/20 13:55 DJO Document 05/04/20 13:20 [email or web address] [email or web address] 05/04/20 13:55 DJO Document 05/04/20 13:20 [email or web address] [email or web address] 05/04/20 13:55 DJO 05/04/20 05/04/20 05/04/20 13:05 13:10 13:15 Home O2 Evaluation Test Phase Resting Exercise Exercise Oxygen Delivery Room Air Room Air Nasal Cannula Oxygen Flow Rate (L/min) 1 Pulse Oximetry (90-100 %) 90 86 L 87 L Pulse Rate (60-100 beats/min) 88 96 97 Activity Tolerance Treatment Charges O2 Evaluation 05/04/20 05/04/20 13:20 13:20 Home O2 Evaluation Test Phase Exercise Resting Oxygen Delivery Nasal Cannula Room Air Oxygen Flow Rate (L/min) 2 Pulse Oximetry (90-100 %) 90 90 Pulse Rate (60-100 beats/min) 104 H 86 Activity Tolerance Poor Treatment Charges
--- NOTE | 2020-05-04 14:31 | PCPTNOTE ---
The PT treatment was unable to be completed today due to patient refusal. Will continue per Plan of Care frequency and duration.
--- NOTE | 2020-05-04 15:27 | PCRCNOTE ---
HOME O2 SET UP WITH [facility] [employer] PHONE NUMBER [phone]. TANK DELIVERED TO PT'S ROOM.
[2020-05-04 20:50] LABS: CA 19-9 45 U/mL (<34)
== END 2020-05-04 15:56 | disposition home or self-care (01) | DRG 433 ==
LOC: ANHED 13:16 → ANH3MED 14:12
PROVIDERS: Internal Medicine Gastroenterology; Nurse Practitioner; Admitting Provider Family Medicine; Emergency Provider Emergency Medicine; PCP Family Medicine; Visit Provider Family Medicine
DX: K70.31 Alcoholic cirrhosis of liver with ascites (principal); J81.1 Chronic pulmonary edema; K72.90 Hepatic failure, unspecified without coma; K86.89 Other specified diseases of pancreas; D64.9 Anemia, unspecified; F10.10 Alcohol abuse, uncomplicated; R91.8 Other nonspecific abnormal finding of lung field; R50.9 Fever, unspecified; I10 Essential (primary) hypertension; E78.5 Hyperlipidemia, unspecified; F17.210 Nicotine dependence, cigarettes, uncomplicated; N40.0 Benign prostatic hyperplasia without lower urinary tract symptoms; K80.20 Calculus of gallbladder without cholecystitis without obstruction; Z79.899 Other long term (current) drug therapy
CPT/HCPCS: 36415; 49083; 71045; 71046; 80048; 80053; 80069; 81001; 82042; 82140; 82248; 83615; 83690; 83735; 84157; 84443; 85025; 85027; 85610; 85730; 86140; 86301; 87040; 87070; 87075; 87077; 87086; 87088; 87186; 87205; 88104; 88108; 88305; 89051; 93005; 94618; 96365; 96366; 96375; 96376; 97110; 97161; 97165; 97530; 97535; 99285; A9270; G0378; J1940; J3475; P9047

== ENCOUNTER 2020-04-27 10:30 | Outpatient (CLI) | payer MEDICARE, MEDICAID, SELFPAY ==
--- NOTE | ~2020-04-27 | US_ITS ---
EXAMINATION: US paracentesis abd w/image DATE: 04/27/2020 15:45 INDICATION: Ascites. TECHNIQUE: The procedure and its risks, benefits, and alternatives were discussed with the patient. P otential risks discussed included bleeding and infection. The skin was prepped and draped in sterile fashion. 1% lidocaine was used for local anesthesia. Under ultrasound guidance, a 5 Fr catheter with trochar was advanced into the ascites in the left lower quadrant. Fluid was aspirated. The catheter w as removed, and a dressing was applied. There were no immediate complications. FINDINGS: Ultrasound images demonstrate ascites and the catheter within the fluid. IMPRESSION: 1. Successful ultrasound-guided paracentesis yielding 5000 mL of yellow fluid. Reviewed, dictated and finalized at location A. TING PRESS OPERATOR
--- NOTE | 2020-04-27 12:57 | WPDGICN ---
Assessment and Plan Assessment and plan (1) Alcohol abuse: Code(s): F10.10 - Alcohol abuse, uncomplicated Status: Acute Assessment and Plan: With long history of alcohol abuse. States he is currently abstinent. Continued alcohol avoidance strongly encourage. (2) Cirrhosis of liver with ascites: Code(s): K74.60 - Unspecified cirrhosis of liver; R18.8 - Other ascites Status: Acute Assessment and Plan: Patient with obvious alcoholic cirrhosis. Plan is for abdominal paracentesis with subsequent lobe lab studies of his ascitic fluid. LFTs will be obtained as well as serum ammonia level because he is very difficult to get a history from. He may have a component of hepatic encephalopathy. Low-salt diet advised and diuretics to include Lasix and Aldactone. Daily weights encouraged as well. (3) Ascites: Code(s): R18.8 - Other ascites Status: Acute Assessment and Plan: Abdominal paracentesis will be arranged. Subsequent analysis of ascitic fluid encouraged to exclude include a cytology culture chemistries. Low-salt diet with daily weights encouraged as well. Diuresis with Aldactone and Lasix will be. GI Consult Note Consult date/time: 04/27/20 12:57 HPI: Lloyd Scales is a 60 year old male seen in evaluation at the request of the emergency room. Patient has a long history of alcohol abuse with drinking many beers a day for many years he states he has been abstinent from alcohol for 3 months now. History is obtained with the assistance of his . He apparently has had increasing abdominal girth over last 2 months. Became particularly bad over the last 3 weeks and has caused him to be somewhat short of breath. This prompted him to come to the emergency room today. Patient has had alcohol withdrawal seizures in the past. In the ER is noted to have very tense distended ascites. As stated he apparently drank alcohol but his stopped this over the last 3 months. He also complains rather to significant distended ankles. He has not been taking any water pills. He states he sees Dr. Chiara Holbrook primary care service she had prescribed water pills but he is not yet filled the prescription or tried to take it. Past medical history is significant for hypertension, gout, low back pain for which she takes Vicodin on rather frequent basis. Review of Systems Review of Systems: All systems reviewed & are unremarkable except as noted in HPI and below PMFSH Past Medical History Medical History Alcoholism Hyperlipidemia Hypertension Liver cirrhosis Family History Family History Mother Family history of diabetes mellitus in first degree relative Family history of coronary artery disease Social History Social History Smoking status: Never smoker Alcohol intake: current Gender identity (if verbalized by the patient): Male Meds Home Medications and Allergies Home Medications Medication Instructions Recorded Confirmed Type alprazolam 04/27/20 History hydrocodone-acetaminophen 04/27/20 History losartan 04/27/20 History Allergies Allergy/AdvReac Type Severity Reaction Status Date / Time No Known Allergies Allergy Unverified 04/27/20 09:56 Exam Narrative: Exam Narrative: Physical exam reveals patient be alert. Vital signs stable. HEENT exam is unremarkable. Lungs reveal a few rhonchi. Heart is without murmur. Abdomen reveals tense distended abdomen consistent with ascites. Shifting dullness is noted. Is unable to palpate any organs because of the distended ascites. Extremities reveal 4+ edema to the thighs. Rectal exam is deferred.
== END 2020-04-27 10:31 ==
LOC: ANHPFT 06-07 10:30
PROVIDERS: PCP Family Medicine; Visit Provider Family Medicine
DX: R06.00 Dyspnea, unspecified (principal); R18.8 Other ascites
CPT/HCPCS: 49083; 88104; 88108; 88305

== ENCOUNTER 2020-05-11 12:36 | Outpatient (CLI) | payer MEDICARE, MEDICAID, SELFPAY ==
--- NOTE | ~2020-05-11 | CT_ITS ---
EXAMINATION: CT abdomen pelvis w con EXAM DATE: 05/11/2020 13:26 INDICATION: Pancreatic lesion. TECHNIQUE: Spiral CT of the abdomen and pelvis was performed following intravenous injection of 100 m L Omnipaque 350. Axial, coronal and sagittal images were reviewed. The dose-length product (DLP) fo r this examination was 843.01 mGy-cm. The exposure was tailored according to patient size (auto mA e xposure control), and iterative reconstruction (ASIR) was used as additional dose reduction technique . 03/19/2020 FINDINGS: No change in the 1.4 cm low-density region in the pancreatic head, with several small calci fications, without evidence of mural nodule or enhancement. The differential diagnosis includes pseud ocyst, intraductal papillary mucinous neoplasm (IPMN), mucinous cystic neoplasm (MCN), and the less c ommon serous cystadenoma and neuroendocrine tumor. Correlate for history of pancreatitis. Longer inte rval 1-2 year follow-up CT. Atrophic cirrhotic liver with large amount of ascites. Portal hypertension with recanalized ligamentu m teres. Spleen is normal in size. Stable 1.6 cm left adrenal gland nodule superiorly and 1.8 cm nodu le inferiorly. There is cholelithiasis within an otherwise unremarkable gallbladder. No evidence of obstructive biliary disease. Portal and splenic veins are patent. Kidneys enhance symmetrically. T here is no hydronephrosis. The prostate is unremarkable. Paris catheter in expected position. Blad cassie unremarkable. There is no retroperitoneal or pelvic lymphadenopathy. There is moderate scatter ed arteriosclerotic disease. Appendix not identified. The stomach and small bowel are unremarkable. There is expected amount of c olonic stool. No free intraperitoneal gas. The heart is normal in size. There are no pericardial or pleural effusions. There is multisegmental right basilar, subsegmental left basilar atelectasis. There are no osteoblastic or osteolytic lesions identified. IMPRESSION: 1. Cirrhosis, large ascites, portal hypertension. 2. Stable pancreatic head hypodensity not likely to be clinically significant finding but consider f ollow-up CT in one year. 3. Stable left adrenal gland nodules statistically most likely adenomas. These can also be reevaluat ed on follow-up CT. 4. Multisegmental right basilar, subsegmental left basilar atelectasis. 5. Cholelithiasis. Reviewed, dictated and finalized at location A. CLEANER IMPRESSION: 1. Cirrhosis, large ascites, portal hypertension. 2. Stable pancreatic head hypodensity not likely to be clinically significant finding but consider follow-up CT in one year. 3. Stable left adrenal gland nodules statistically most likely adenomas. These can also be reevaluated on follow-up CT. 4. Multisegmental right basilar, subsegmental left basilar atelectasis. 5. Cholelithiasis.
== END 2020-05-11 12:37 | disposition home or self-care (01) ==
PROVIDERS: PCP Family Medicine
DX: K86.9 Disease of pancreas, unspecified (principal); K80.20 Calculus of gallbladder without cholecystitis without obstruction
CPT/HCPCS: 74177; Q9967

== ENCOUNTER 2020-05-22 11:40 | Emergency (ER) | payer MEDICARE, MEDICAID, SELFPAY ==
[2020-05-22 11:54] VITALS: BP 115/84; PULSE 126; RESP 22; TEMP 36.2; O2SAT 100
--- NOTE | 2020-05-22 11:55 | ED.MALEGU ---
HPI - Male Genitourinary General Chief complaint: Urogenital-Male Stated complaint: needs catheter removed Time Seen by Provider: 05/22/20 11:54 Source: patient Mode of arrival: ambulatory Limitations: no limitations History of Present Illness HPI Narrative: Patient presents to the ED requesting to remove the Paris catheter which has been placed 3 weeks ago. Patient is telling me that Dr. Holbrook told him to go to the emergency room to remove the Paris catheter. Patient is asymptomatic. Related Data Home Medications Medication Instructions Recorded Confirmed allopurinol 150 mg PO DAILY 04/27/20 04/27/20 alprazolam 0.5 mg PO QID PRN 04/27/20 04/27/20 hydrocodone-acetaminophen 7 - 325 mg PO PRN PRN 04/27/20 04/27/20 losartan 50 mg PO DAILY 04/27/20 04/27/20 tamsulosin 0.4 mg PO DAILY 04/27/20 04/27/20 Allergies Allergy/AdvReac Type Severity Reaction Status Date / Time No Known Allergies Allergy Verified 05/22/20 12:06 Review of Systems Review of Systems: Narrative: CONSTITUTIONAL: Denies fever, chills, or sweats. EYES: Denies visual changes, redness, or discharge. ENT: Denies rhinorrhea, congestion, sore throat, or otalgia. CARDIOVASCULAR: Denies chest pain, palpitations, or edema. RESPIRATORY: Denies cough or dyspnea. GASTROINTESTINAL: Denies abdominal pain, nausea, vomiting, or diarrhea. GENITOURINARY: Denies dysuria or hematuria. SKIN: Denies rash or itching. MUSCULOSKELETAL: Denies back pain, joint pain, or myalgia. NEUROLOGIC: Denies headache, numbness, or weakness. PSYCHIATRIC: Denies anxiety or depression. [facility] Past Medical History Medical History Alcohol withdrawal seizure Alcoholism BPH (benign prostatic hyperplasia) Chronic anemia Hyperlipidemia Hypertension Liver cirrhosis Spina bifida occulta Surgical History Surgical History H/O hemorrhoidectomy S/P shoulder replacement Status post left foot surgery Family History Family History Mother Family history of diabetes mellitus in first degree relative Family history of coronary artery disease Heart disease Social History Social History Social History: the patient is disabled and he lives with his . He does not have any biological children but she has 2 children. The patient stated that he quit drinking alcohol about 2-3 months ago. Otherwise he would binge drink beer quite often. He denies any illicit drugs. The patient stated he still and about 3 or 4 cigarettes a day. The patient is listed as a full code. His is the durable power assistant county attorney for healthcare. Years smoked: 50 Smoking status: Current every day smoker Tobacco type: cigarettes Second hand tobacco smoke exposure: Yes Alcohol intake: former Drinks per week: 28 Substance use: never Substance use type: does not use Gender identity (if verbalized by the patient): Male Spiritual care concerns: No Exam Narrative: Exam Narrative: General appearance: Well-developed, well-nourished Skin: Normal color Chest and respiratory: Airway patent, no respiratory distress, no accessory muscle use Heart: Regular rate/rhythm Abdomen: Soft, nontender, no organomegaly, quiet bowel sounds, Paris catheter in place, ascites Vascular: Normal peripheral pulses, normal capillary refill. Neurologic: Alert and oriented ?3, CLINICAL DATA COORDINATOR is normal as tested, no gross motor deficit Course Course Emergency Course: Stable Consultations Consultation #1: Dr. Holbrook Suggested to remove the cat
[2020-05-22 14:22] VITALS: BP 101/73; PULSE 100; RESP 16; O2SAT 100
--- NOTE | 2020-05-22 14:30 | PC.NURSE ---
Paris cath removed intact after balloon deflated (per md verbal request)
[2020-05-22 14:50] VITALS: BP 116/85; PULSE 102; RESP 17; O2SAT 99
== END 2020-05-22 15:06 | disposition home or self-care (01) ==
PROVIDERS: Emergency Provider Emergency Medicine; PCP Family Medicine
DX: Z46.6 Encounter for fitting and adjustment of urinary device (principal); N40.0 Benign prostatic hyperplasia without lower urinary tract symptoms; D64.9 Anemia, unspecified; E78.5 Hyperlipidemia, unspecified; I10 Essential (primary) hypertension; K74.60 Unspecified cirrhosis of liver; Q76.0 Spina bifida occulta; F10.20 Alcohol dependence, uncomplicated; Z96.619 Presence of unspecified artificial shoulder joint; Z87.891 Personal history of nicotine dependence
CPT/HCPCS: 99282

== ENCOUNTER 2020-07-03 12:38 | Inpatient (IN) | payer MEDICARE, MEDICAID, SELFPAY ==
[2020-07-03] VITALS (13 sets, daily range): BP systolic 72–117; BP diastolic 55–83; PULSE 93–117; RESP 14–20; TEMP 36.3–36.9; O2SAT 94–100; BMI 27.7
--- NOTE | ~2020-07-03 | CT_ITS ---
EXAMINATION: CT brain wo con INDICATION: Altered mental status COMPARISON: 02/15/2018 TECHNIQUE: Standard unenhanced head CT. The dose-length product (DLP) was 605.33 mGy-cm. The mA was a djusted according to patient size. Iterative reconstruction technique was employed. FINDINGS: There is no acute intraparenchymal hemorrhage. No evidence of mass lesion. No evidence of a cute infarction. There is mild periventricular and subcortical hypodensity probably related to small vessel ischemic disease. There is mild prominence of the sulci and ventricles related to cerebral atr ophy. Intracranial calcified cerebral atherosclerosis is noted. There are no extra-axial collections. There is no mass effect or midline shift. The orbits and soft tissues are unremarkable. The visuali zed sinuses and mastoid air cells are well aerated. IMPRESSION: 1. No acute intracranial abnormality. 2. Age related findings. Reviewed, dictated and finalized at location A. REPORT ANALYST
--- NOTE | ~2020-07-03 | XR_ITS ---
EXAMINATION: XR chest 1V portable INDICATION: Weakness and shortness of breath TECHNIQUE: Portable AP chest at 1316 hours COMPARISON: 05/03/2020 FINDINGS: The lung volumes are low. Linear opacities of the lung bases are consistent with atelectasi s. No pleural effusion or pneumothorax is identified. The cardiomediastinal silhouette is normal. IMPRESSION: 1. Bibasilar atelectasis. Reviewed, dictated and finalized at location A. ER APPRENTICE IMPRESSION: 1. Bibasilar atelectasis.
--- NOTE | ~2020-07-03 | CT_ITS ---
EXAMINATION: CT abdomen pelvis w con INDICATION: Abdominal distention and pain, history of pancreatic cancer TECHNIQUE: Computed tomographic images of the abdomen and pelvis were obtained after the administrati on of 100 cc of Omnipaque 350 intravenous contrast. The dose-length product (DLP) was 970.69 mGy-cm. Automated exposure control and iterative reconstruction technique were employed. COMPARISON: 05/11/2020 FINDINGS: Minimal dependent atelectasis is present in the lung bases. The heart size is normal. Calci fied coronary artery atherosclerosis is noted. There is a large volume of ascites which distends the abdomen. The liver surface is nodular. There is recanalization of the umbilical vein. Stones are pres ent in the nondistended gallbladder. The spleen is normal. There are multiple perisplenic varices. Th ere appears to be stable cystic lesion in the head of the pancreas, possibly reflecting patient's sheikh creatic cancer. There are stable left adrenal masses measuring 1.5 and 2.0 cm. There is a stable 1.6 cm mass of the right adrenal gland. The kidneys are unremarkable. There is calcified atherosclerosis of the aorta and many of the other arteries. There are no dilated loops of bowel. No pathologically e nlarged abdominal or pelvic lymph nodes are identified. There is an indeterminate lytic area in the r ight aspect of the L5 vertebral body. IMPRESSION: 1. Cirrhosis with portal hypertension and large volume of ascites distending the abdomen and pelvis. 2. Indeterminate adrenal masses. 3. Low-attenuation mass in the head of the pancreas, possibly reflecting known malignancy. 4. Indeterminate lytic area in the right aspect of the L5 vertebral body, degenerative versus metasta tic disease. 5. Cholelithiasis. Reviewed, dictated and finalized at location A. NSTITCH HEMMER IMPRESSION: 1. Cirrhosis with portal hypertension and large volume of ascites distending th e abdomen and pelvis. 2. Indeterminate adrenal masses. 3. Low-attenuation mass in the head of the pancreas, possibly reflecting known malignancy. 4. Indeterminate lytic area in the right aspect of the L5 vertebral body, degen erative versus metastatic disease. 5. Cholelithiasis.
--- NOTE | ~2020-07-03 | US_ITS ---
EXAMINATION: US paracentesis abd w/image DATE: 07/04/2020 10:56 INDICATION: Ascites. TECHNIQUE: The procedure and its risks, benefits, and alternatives were discussed with the patient. P otential risks discussed included bleeding and infection. The skin was prepped and draped in sterile fashion. 1% lidocaine was used for local anesthesia. Under ultrasound guidance, a 5 Fr catheter with trochar was advanced into the ascites in the left lower quadrant. Fluid was aspirated. The catheter w as removed, and a dressing was applied. There were no immediate complications. FINDINGS: Ultrasound images demonstrate ascites and the catheter within the fluid. IMPRESSION: 1. Successful ultrasound-guided paracentesis yielding 5000 mL of clear, yellow fluid. Reviewed, dictated and finalized at location A. IAGE THERAPIST
--- NOTE | 2020-07-03 13:01 | ECG_ITS ---
Measurements Intervals [place] Rate: 116 P: -7 LA: 136 QRS: 36 QRSD: 97 T: 33 QT: 361 QTc: 503 Interpretive Statements SINUS OR ECTOPIC ATRIAL TACHYCARDIA VENTRICULAR PREMATURE COMPLEX LOW QRS VOLTAGE IN LIMB LEADS BORDERLINE R WAVE PROGRESSION, ANTERIOR LEADS BORDERLINE T WAVE ABNORMALITY- INF/LAT LEADS ABNORMAL ECG Electronically Signed On 07-03-2020 13:47:49 PROJECT LANDSCAPE ARCHITECT by Anthony Kaiser D.O.
--- NOTE | 2020-07-03 13:47 | ED.GENADULT ---
HPI - General Adult General Chief complaint: Alcohol Stated complaint: ams - etoh on board Time Seen by Provider: 07/03/20 12:45 History of Present Illness HPI narrative: Patient is a 60-year-old gentleman who presents the emergency department with chief complaint of alcohol intoxication and altered mental status. Patient has a long running history of alcoholism and also has a history of cirrhosis and a pancreatic mass. Patient reports that he has been weaker than normal and has continued to drink. The family noticed that he is reaching a point that there unable to care for him. Related Data Home Medications Medication Instructions Recorded Confirmed allopurinol 150 mg PO DAILY 04/27/20 04/27/20 alprazolam 0.5 mg PO QID PRN 04/27/20 04/27/20 hydrocodone-acetaminophen 7 - 325 mg PO PRN PRN 04/27/20 04/27/20 losartan 50 mg PO DAILY 04/27/20 04/27/20 tamsulosin 0.4 mg PO DAILY 04/27/20 04/27/20 Allergies Allergy/AdvReac Type Severity Reaction Status Date / Time No Known Allergies Allergy Verified 05/22/20 12:06 Review of Systems Review of Systems: Narrative: A 10 system review of systems was completed on the patient and is negative except for what is stated in the HPI. Nursing and ancillary documentation was reviewed. [facility] Past Medical History Medical History Alcohol withdrawal seizure Alcoholism BPH (benign prostatic hyperplasia) Chronic anemia Hyperlipidemia Hypertension Liver cirrhosis Spina bifida occulta Surgical History Surgical History H/O hemorrhoidectomy S/P shoulder replacement Status post left foot surgery Family History Family History Mother Family history of diabetes mellitus in first degree relative Family history of coronary artery disease Heart disease Social History Social History Social History: the patient is disabled and he lives with his . He does not have any biological children but she has 2 children. The patient stated that he quit drinking alcohol about 2-3 months ago. Otherwise he would binge drink beer quite often. He denies any illicit drugs. The patient stated he still and about 3 or 4 cigarettes a day. The patient is listed as a full code. His is the durable power traffic technician for healthcare. Years smoked: 50 Smoking status: Current every day smoker Tobacco type: cigarettes Second hand tobacco smoke exposure: Yes Alcohol intake: former Drinks per week: 28 Substance use: never Substance use type: does not use Gender identity (if verbalized by the patient): Male Spiritual care concerns: No Exam Narrative: Exam Narrative: GENERAL: Well-appearing, well-nourished, and in no acute distress. HEAD: Normocephalic, atraumatic. EYES: PERRLA and EOMI. ENT: Nares clear, no rhinorrhea or epistaxis. Mucous membranes moist. NECK: Supple. CHEST: Clear to auscultation. No respiratory distress. HEART: Regular rate and rhythm. No murmur heard. Normal peripheral pulses. ABDOMEN: Soft, nontender, distended, normal active bowel sounds. EXTREMITIES: Normal range of motion. No edema. SKIN: Warm, dry, no rash. NEURO: No focal deficits. Alert and oriented x3. PSYCH: Normal mood and affect. Course Vital Signs Vital signs: Vital Signs Temperature 36.9 C 07/03/20 12:42 Pulse Rate 117 H 07/03/20 12:42 Respiratory Rate 15 07/03/20 12:42 Blood Pressure 85/57 L 07/03/20 12:42 Pulse Oximetry 94 07/03/20 12:42 Temperature 36.9 C 07/03/20 12:42 Pulse Rate 103 H 07/03/20 15:00 Respiratory Rate 20 07/03/20 15:00 Blood Pressure 97/77 L 07/03/20 15:00 Pulse Oximetry 95 07/03/20 15:00 Medical Decision Making Vital Signs Vital Signs: Vital Signs Temperature 36.9 C
[2020-07-03] MEDS: ONDANSETRON INJ 4 MG/2 ML VIAL IV PUSH (14:08)
[2020-07-03] MEDS: SODIUM CHLORIDE 0.9% IV 1,000 ML 999 ML IV CONT ×3 (14:08→17:31)
[2020-07-03 14:17] LABS: Basophils Percent Auto 0.5 % (0.2-1.2); Eosinophils Absolute Auto 0.1 K/mm3 (0-0.3); Eosinophils Percent Auto 1.2 % (0-4.4); Hemoglobin 12.6 g/dL (14.0-18.0); Immature Granulocyte Absolute 0.02 K/mm3 (0.00-0.031); Immature Granulocyte Percent A 0.3 % (0-0.5); Lymphocytes Absolute Auto 1.39 K/mm3 (0.9-3.2); Lymphocytes Percent Auto 22.9 % (18.3-44.2); Mean Corpuscular HGB Conc 33.2 g/dl (32-36); Mean Corpuscular Hemoglobin 32.3 pg (26-34); Mean Corpuscular Volume 97.4 fl (80-100); Mean Platelet Volume 8.9 fl (7.4-10.4); Monocytes Absolute Auto 0.4 K/mm3 (0.1-0.6); Monocytes Percent Auto 6.6 % (2.6-8.5); Neutrophils Absolute Auto 4.2 K/mm3 (1.3-6.7); Neutrophils Percent Auto 68.5 % (45.5-73.1); Platelet Count Result 178 k/mm3 (150-375); Red Cell Distribution Width 18.6 % (11.5-14.5); White Blood Count 6.1 K/mm3 (4.5-10.0)
[2020-07-03 14:23] LABS: Ammonia < 9 umol/L (9-30); Ethanol 237 mg/dL (<10)
[2020-07-03 14:25] LABS: Alanine Aminotransferase 14 U/L (4-50); Albumin Level 3.4 g/dL (3.5-5.1); Alkaline Phosphatase 130 U/L (38-126); Anion Gap 10 mmol/L (8-16); Aspartate Amino Transferase 38 U/L (17-59); Bilirubin,Total 1.3 mg/dL (0.2-1.3); Blood Urea Nitrogen 35 mg/dL (9-20); Calcium 8.5 mg/dL (8.4-10.2); Carbon Dioxide 27 mmol/L (22-30); Chloride 105 mmol/L (98-107); Estimated CRCL calculation 48 ml/min; Estimated Glomerular Filt Rate 56; Glucose 110 mg/dL (75-110); Lipase 81 U/L (23-300); Magnesium 1.8 mg/dL (1.6-2.3); Potassium 3.4 mmol/L (3.4-5.0); Sodium 142 mmol/L (137-145)
[2020-07-03 14:31] LABS: Add Urine Microscopic? YES; Appearance Urine Clear (Clear); Bacteria Urine Trace /hpf; Bilirubin Urine Negative (Negative); Blood Urine Negative (Negative); Color Urine Yellow (Yellow); Glucose Urine UA Negative (Negative); Ketones Urine Negative (Negative); Leukocyte Esterase Ur Trace LEU/UL (Negative); Nitrate Urine Negative (Negative); Protein Urine Negative (Negative); Specific Grav Ur 1.013 (1.001-1.035); Squamous Epithelial Cell Urine Rare /hpf (Few)
[2020-07-03 14:34] LABS: INR 1.4; Prothrombin Time 17.7 Seconds (11.1-14.7)
[2020-07-03 14:35] LABS: Partial Thromboplastin Time 40.5 SECONDS (22.3-36.8)
[2020-07-03 14:36] LABS: Lactic Acid Reflex 4.4 mmol/L (0.7-2.1)
[2020-07-03 14:36] LABS: Troponin I < 0.012 ng/mL (0.000-0.034)
[2020-07-03 17:20] LABS: Reflex Lactic Acid Yes or No Add Lactic
[2020-07-03 18:10] LABS: Lactic Acid 3.3 mmol/L (0.7-2.1)
[2020-07-03] MEDS: PANTOPRAZOLE SODIUM IV 40 MG VIAL IV PUSH (18:29)
[2020-07-03] MEDS: SODIUM CHLORIDE 0.9% IV 1,000 ML 125 ML IV CONT (18:29)
--- NOTE | 2020-07-03 18:29 | ADMGEN ---
This patient, Lloyd Scales, was admitted to IMU Room 232-01 at 1819. Patient/family oriented to hospital policies and general routines including ID bracelet, bed and alarms, visiting hours, pain management, procedures, bathroom and other care routines, personal items, smoking policy, room service/diet, and visiting hours. Information on how to activate the Rapid Response Team has been discussed. Patient/Family are encouraged to report perceived risks to care and to ask questions if they do not understand what they are told or what they should do.
[2020-07-04] VITALS (15 sets, daily range): BP systolic 94–124; BP diastolic 59–90; PULSE 95–113; RESP 14–22; TEMP 36.2–36.9; O2SAT 93–100
[2020-07-04] MEDS: SODIUM CHLORIDE 0.9% IV 1,000 ML 80 ML IV CONT ×2 (02:19→17:40)
--- NOTE | 2020-07-04 03:30 | HP_ITS ---
DATE OF SERVICE: 07/03/2020 SUPERVISING PHYSICIAN: Dr. Mary Benoit. TIME OF SERVICE: 1530 hours. CHIEF COMPLAINT: Intoxicated with altered mental status. HISTORY OF PRESENT ILLNESS: This is a 60-year-old male with alcoholic cirrhosis of the liver with ascites, hypertension, hyperlipidemia, and coronary artery disease who presented to the emergency department earlier today from home, after his called 911 because the patient was apparently intoxicated with decreased mental status. He is known to the hospital service as he was admitted to us in April 2020 with a large amount of ascites and he was diuresed and also underwent paracentesis. It is also noted that he has a known pancreatic mass, for which he is apparently supposed to be following up at [facility] however, it is my understanding that he has not done such as of yet. In any regard, he did quit drinking for a couple of months, however, has been binging a few days a week the last couple of weeks. He was intoxicated today and apparently confused, prompting a call to 911. In the emergency department, his abdomen was noted to be extremely distended and he reports increasing abdominal girth over the past week or so. The patient himself does not really have any complaints at the time of my evaluation, but he is obviously intoxicated. He denies fever, chills, sweats, abdominal pain, nausea, vomiting, and diarrhea. He has had a bit of a decreased appetite recently. He does mention that he has been quite weak and has been having a difficult time getting up and about and in fact had a fall last week, which he attributes to poor balance. MEDICAL HISTORY: 1. Alcoholism. 2. History of alcohol withdrawal seizure. 3. Alcoholic cirrhosis of the liver. 4. Hypertension. 5. Hyperlipidemia. 6. Benign prostatic hyperplasia. 7. Chronic anemia. 8. Spina bifida occulta. 9. The patient reports being legally blind secondary to cataract in right eye. 10. Chronic anemia. 11. Chronic respiratory failure, on home oxygen. SURGICAL HISTORY: 1. Hemorrhoidectomy. 2. Shoulder replacement. 3. Left foot surgery. 4. Osteoarthritis. 5. Gout. 6. Tonsillectomy. 7. History of shingles. 8. Anxiety. 9. Mass at the head of the pancreas, suspect possible pancreatic cancer. HOME MEDICATIONS: 1. Losartan 100 mg daily. 2. Allopurinol 150 mg daily. 3. Alprazolam 0.5 mg 4 times daily as needed for anxiety. 4. Tums as needed for indigestion. 5. Furosemide 40 mg daily. 6. Lidoderm patch daily. 7. Magnesium oxide 400 mg daily. 8. Nicotine patch. 9. Spironolactone 100 mg at 1600. 10. Tamsulosin 0.4 mg daily. ALLERGIES: NO KNOWN DRUG ALLERGIES. SOCIAL HISTORY: The patient lives in [place] with his . He has no biological children, but has step children. He has a longstanding history of alcoholism. However, it sounds like he has been trying to cut back over the last 2-3 months, but has been binge drinking over the last couple of weeks. He is a smoker, but is now down to about 3 or 4 cigarettes a day. Denies drug use. He designates his as his surrogate decision maker and he wishes to be a full code at this time. FAMILY HISTORY: Significant for diabetes, heart disease, and hypertension. REVIEW OF SYSTEMS: Twelve systems were reviewed with pertinent positives and negatives as per HPI. Somewhat limited as the patient seems to be a bit confused, although he is alert and oriented x4. He denies headache. He denies sinus congestion, rhinorrhea, otalgia, or odynophagia. No cough. Mild shortness of breath, which he attributes to his significant ascites. He denies chest pain, pleuritic pain, palpitations. No melena or hematochezia. He denies dysuria and hematuria. No lower extremity edema, except as docum
[2020-07-04 05:10] LABS: Hematocrit 30.8 % (42.0-52.0); Hemoglobin 10.1 g/dL (14.0-18.0); Mean Corpuscular HGB Conc 32.8 g/dl (32-36); Mean Corpuscular Volume 97.5 fl (80-100); Mean Platelet Volume 8.7 fl (7.4-10.4); Platelet Count Result 119 k/mm3 (150-375); Red Blood Count 3.16 M/mm3 (4.6-6.20); Red Cell Distribution Width 18.6 % (11.5-14.5); White Blood Count 4.2 K/mm3 (4.5-10.0)
[2020-07-04 05:22] LABS: INR 1.6; Prothrombin Time 19.2 Seconds (11.1-14.7)
[2020-07-04 05:55] LABS: Alanine Aminotransferase 10 U/L (4-50); Albumin Level 2.4 g/dL (3.5-5.1); Alkaline Phosphatase 94 U/L (38-126); Anion Gap 3 mmol/L (8-16); Aspartate Amino Transferase 32 U/L (17-59); Bilirubin,Total 0.9 mg/dL (0.2-1.3); Blood Urea Nitrogen 29 mg/dL (9-20); Calcium 7.8 mg/dL (8.4-10.2); Carbon Dioxide 28 mmol/L (22-30); Chloride 111 mmol/L (98-107); Creatine Kinase 36 U/L (55-170); Estimated CRCL calculation 71 ml/min; Estimated Glomerular Filt Rate > 60; Glucose 89 mg/dL (75-110); Magnesium 1.5 mg/dL (1.6-2.3); Potassium 3.6 mmol/L (3.4-5.0); Sodium 142 mmol/L (137-145)
[2020-07-04] MEDS: FOLIC ACID 1 MG TABLET PO (08:40)
[2020-07-04] MEDS: allopurinoL 150 MG TABLET PO (08:40)
[2020-07-04] MEDS: MAGNESIUM OXIDE 400 MG TABLET PO (08:40)
[2020-07-04] MEDS: FUROSEMIDE 40 MG TABLET PO (08:40)
[2020-07-04] MEDS: TAMSULOSIN HCL 0.4 MG CAPSULE PO (08:40)
[2020-07-04] MEDS: THERAPEUTIC MULTIVITAMINS/MINERALS TAB (*BKC) 1 TABLET PO (08:40)
[2020-07-04] MEDS: NICOTINE (*PBKC) 14 MG PATCH 1 PATCH TRANSDERM (08:42)
[2020-07-04] MEDS: THIAMINE HCL 100 MG TABLET PO (08:42)
[2020-07-04] MEDS: PANTOPRAZOLE SODIUM IV 40 MG VIAL IV PUSH (08:47)
--- NOTE | 2020-07-04 12:34 | PM.IMPN ---
Progress Note: A&P Assessment and Plan (1) Alcoholic intoxication: Qualifiers: Complication of substance-induced condition: uncomplicated Qualified Code(s): F10.920 - Alcohol use, unspecified with intoxication, uncomplicated Code(s): F10.929 - Alcohol use, unspecified with intoxication, unspecified Status: Acute Assessment and Plan: On [facility] protocol patient stated that he was abstinence for 5 months then he started drinking back few days ago (2) Acute UTI: Code(s): N39.0 - Urinary tract infection, site not specified Status: Acute Assessment and Plan: Continue IV Rocephin (3) Chronic anemia: Code(s): D64.9 - Anemia, unspecified Status: Chronic Assessment and Plan: Probably anemia of chronic disease monitor (4) Hypertension: Code(s): I10 - Essential (primary) hypertension Status: Chronic Assessment and Plan: Blood pressure on the lower side monitor (5) BPH (benign prostatic hyperplasia): Code(s): N40.0 - Benign prostatic hyperplasia without lower urinary tract symptoms Status: Chronic Assessment and Plan: Continue medication (6) Mass of pancreas: Code(s): K86.89 - Other specified diseases of pancreas Status: Chronic Assessment and Plan: Patient also has adrenal mass has probable lytic lesion in the spine versus arthritis patient need to follow up with [facility] as arranged before (7) Ascites: Code(s): R18.8 - Other ascites Status: Acute Assessment and Plan: Plan for paracentesis (8) Cirrhosis of liver with ascites: Qualifiers: Hepatic cirrhosis type: alcoholic cirrhosis Qualified Code(s): K70.31 - Alcoholic cirrhosis of liver with ascites Code(s): K74.60 - Unspecified cirrhosis of liver; R18.8 - Other ascites Status: Acute Assessment and Plan: Counseling avoid fluid overload Subjective Date/time seen: 07/04/20 12:34 Interval history: Patient seen and examined Patient feels weak still have intermittent confusion Patient denies fever headache chest pain I am seeing the patient for altered mental status Exam Narrative: Exam Narrative: Confused Chest no wheeze crackles Abdomen distended nontender CVS S1 + S2 Lower extremity edema Objective Data Vital Signs Vital Signs: Vital Signs - 24 hr 07/03/20 12:42 07/03/20 13:45 07/03/20 14:30 Temperature 98.4 F Pulse Rate 117 H 115 H 105 H Pulse Rate [Bilateral Pedal (Dorsalis Pedis) Palpation] Pulse Rate [Monitor] Respiratory Rate 15 20 20 Blood Pressure 85/57 L 72/55 L 87/64 L Pulse Oximetry 94 100 97 07/03/20 15:00 07/03/20 16:30 07/03/20 17:00 Temperature Pulse Rate 103 H 103 H 106 H Pulse Rate [Bilateral Pedal (Dorsalis Pedis) Palpation] Pulse Rate [Monitor] Respiratory Rate 20 20 20 Blood Pressure 97/77 L 110/83 108/74 Pulse Oximetry 95 100 99 07/03/20 17:45 07/03/20 18:03 07/03/20 18:20 Temperature 97.3 F L Pulse Rate 98 97 100 Pulse Rate [Bilateral Pedal (Dorsalis Pedis) Palpation] Pulse Rate [Monitor] Respiratory Rate 14 20 18 Blood Pressure 107/71 99/78 L 117/83 Pulse Oximetry 98 96 98 07/03/20 18:35 07/03/20 20:00 07/03/20 21:34 Temperature 97.7 F Pulse Rate 102 H Pulse Rate [Bilateral Pedal (Dorsalis Pedis) Palpation] 99 93 Pulse Rate [Monitor] 98 Respiratory Rate 18 Blood Pressure 92/65 L Pulse Oximetry 95 07/03/20 22:00 07/04/20 00:00 07/04/20 02:00 Temperature 97.9 F Pulse Rate 94 97 96 Pulse Rate [Bilateral Pedal (Dorsalis Pedis) Palpation] 97 Pulse Rate [Monitor] Respiratory Rate 18 Blood Pressure 94/65 L Pulse Oximetry 95 07/04/20 04:00 07/04/20 06:00 07/04/20 08:00 Temperature 97.1 F L 98.4 F Pulse Rate 112 H 95 100 Pulse Rate [Bilateral Pedal (Dorsalis Pedis) Palpation] 107 H 100 Pulse Rate [Monitor] Respiratory Rate 20 16 Blood Pressure 118/84 102/70 Pulse
[2020-07-04 12:47] LABS: Appearance Peritoneal Fluid Clear (Clear); Color Peritoneal Fluid Yellow (Colorless); Neutrophils Peritoneal Fluid 2 % (0-25); Nucleated Cells Peritoneal Flu 22 /uL (0-500); RBC Peritoneal Fluid 179 /uL (0-100000); Source Peritoneal Fluid Peritoneal Fluid
[2020-07-04 12:48] LABS: Lymphocytes Peritoneal Fluid 15 %; Macrophages Peritoneal Fluid 20 %; Mesothelial Cells Peritoneal Fluid 47 %; Monocytes Peritoneal Fluid 16 %
[2020-07-04] MEDS: LIDOCAINE 5% PATCH 2 PATCH TRANSDERM (17:42)
[2020-07-05] VITALS (10 sets, daily range): BP systolic 95–120; BP diastolic 59–73; PULSE 61–118; RESP 16–20; TEMP 36.2–37.1; O2SAT 93–100
[2020-07-05] MEDS: SODIUM CHLORIDE 0.9% IV 1,000 ML 80 ML IV CONT ×2 (05:54→18:34)
[2020-07-05 08:38] LABS: Basophils Percent Auto 0.5 % (0.2-1.2); Eosinophils Absolute Auto 0.1 K/mm3 (0-0.3); Eosinophils Percent Auto 1.7 % (0-4.4); Hematocrit 33.1 % (42.0-52.0); Hemoglobin 10.9 g/dL (14.0-18.0); Immature Granulocyte Absolute 0.01 K/mm3 (0.00-0.031); Immature Granulocyte Percent A 0.2 % (0-0.5); Lymphocytes Absolute Auto 1.16 K/mm3 (0.9-3.2); Lymphocytes Percent Auto 28.8 % (18.3-44.2); Mean Corpuscular HGB Conc 32.9 g/dl (32-36); Mean Corpuscular Hemoglobin 32.2 pg (26-34); Mean Corpuscular Volume 97.9 fl (80-100); Mean Platelet Volume 9.2 fl (7.4-10.4); Monocytes Absolute Auto 0.4 K/mm3 (0.1-0.6); Monocytes Percent Auto 9.7 % (2.6-8.5); Neutrophils Absolute Auto 2.4 K/mm3 (1.3-6.7); Neutrophils Percent Auto 59.1 % (45.5-73.1); Platelet Count Result 101 k/mm3 (150-375); Red Blood Count 3.38 M/mm3 (4.6-6.20); Red Cell Distribution Width 18.7 % (11.5-14.5)
[2020-07-05] MEDS: allopurinoL 150 MG TABLET PO (08:43)
[2020-07-05] MEDS: FUROSEMIDE 40 MG TABLET PO (08:43)
[2020-07-05] MEDS: TAMSULOSIN HCL 0.4 MG CAPSULE PO (08:43)
[2020-07-05] MEDS: FOLIC ACID 1 MG TABLET PO (08:43)
[2020-07-05] MEDS: PANTOPRAZOLE SODIUM IV 40 MG VIAL IV PUSH (08:43)
[2020-07-05] MEDS: THERAPEUTIC MULTIVITAMINS/MINERALS TAB (*BKC) 1 TABLET PO (08:43)
[2020-07-05] MEDS: MAGNESIUM OXIDE 400 MG TABLET PO (08:43)
[2020-07-05] MEDS: THIAMINE HCL 100 MG TABLET PO (08:43)
[2020-07-05] MEDS: NICOTINE (*PBKC) 14 MG PATCH 1 PATCH TRANSDERM (08:44)
[2020-07-05 08:53] LABS: Alanine Aminotransferase 10 U/L (4-50); Albumin Level 2.5 g/dL (3.5-5.1); Alkaline Phosphatase 96 U/L (38-126); Anion Gap 4 mmol/L (8-16); Aspartate Amino Transferase 34 U/L (17-59); Bilirubin,Total 1.6 mg/dL (0.2-1.3); Blood Urea Nitrogen 22 mg/dL (9-20); Calcium 8.2 mg/dL (8.4-10.2); Carbon Dioxide 27 mmol/L (22-30); Chloride 109 mmol/L (98-107); Estimated CRCL calculation 89 ml/min; Estimated Glomerular Filt Rate > 60; Glucose 92 mg/dL (75-110); Potassium 3.5 mmol/L (3.4-5.0); Sodium 140 mmol/L (137-145)
--- NOTE | 2020-07-05 12:37 | PM.IMPN ---
Progress Note: A&P Assessment and Plan (1) Alcoholic intoxication: Qualifiers: Complication of substance-induced condition: uncomplicated Qualified Code(s): F10.920 - Alcohol use, unspecified with intoxication, uncomplicated Code(s): F10.929 - Alcohol use, unspecified with intoxication, unspecified Status: Acute Assessment and Plan: On [facility] protocol patient stated that he was abstinence for 5 months then he started drinking back few before admission (2) Acute UTI: Code(s): N39.0 - Urinary tract infection, site not specified Status: Acute Assessment and Plan: Continue IV Rocephin (3) Chronic anemia: Code(s): D64.9 - Anemia, unspecified Status: Chronic Assessment and Plan: Probably anemia of chronic disease monitor (4) Hypertension: Code(s): I10 - Essential (primary) hypertension Status: Chronic Assessment and Plan: Blood pressure on the lower side monitor (5) BPH (benign prostatic hyperplasia): Code(s): N40.0 - Benign prostatic hyperplasia without lower urinary tract symptoms Status: Chronic Assessment and Plan: Continue medication (6) Mass of pancreas: Code(s): K86.89 - Other specified diseases of pancreas Status: Chronic Assessment and Plan: Patient also has adrenal mass has probable lytic lesion in the spine versus arthritis patient need to follow up with [facility] as arranged before (7) Ascites: Code(s): R18.8 - Other ascites Status: Acute Assessment and Plan: Had thoracentesis pending final culture (8) Cirrhosis of liver with ascites: Qualifiers: Hepatic cirrhosis type: alcoholic cirrhosis Qualified Code(s): K70.31 - Alcoholic cirrhosis of liver with ascites Code(s): K74.60 - Unspecified cirrhosis of liver; R18.8 - Other ascites Status: Acute Assessment and Plan: Counseling avoid fluid overload Subjective Date/time seen: 07/05/20 12:37 Interval history: Patient seen and examined Patient feels better confusion improved Has paracentesis yesterday pending culture Patient denies fever headache chest pain I am seeing the patient for altered mental status Exam Narrative: Exam Narrative: Confused Chest no wheeze crackles Abdomen distended nontender CVS S1 + S2 Lower extremity edema Objective Data Vital Signs Vital Signs: Vital Signs - 24 hr 07/04/20 12:47 07/04/20 15:52 07/04/20 16:00 Temperature 98.5 F 98.2 F Pulse Rate 113 H 113 H Pulse Rate [Bilateral Pedal (Dorsalis Pedis) Palpation] 102 H Respiratory Rate 16 18 Blood Pressure 111/66 97/59 L Pulse Oximetry 100 100 07/04/20 19:00 07/04/20 20:00 07/04/20 20:29 Temperature 98.2 F 97.8 F 97.6 F Pulse Rate 112 H 106 H 109 H Pulse Rate [Bilateral Pedal (Dorsalis Pedis) Palpation] Respiratory Rate 14 20 22 H Blood Pressure 108/65 106/67 122/84 Pulse Oximetry 100 96 95 07/04/20 20:30 07/05/20 00:00 07/05/20 05:12 Temperature 97.3 F L 97.1 F L Pulse Rate 113 H 61 Pulse Rate [Bilateral Pedal (Dorsalis Pedis) Palpation] Respiratory Rate 22 H 18 18 Blood Pressure 123/71 108/67 Pulse Oximetry 97 96 07/05/20 08:00 Temperature 98.2 F Pulse Rate 100 Pulse Rate [Bilateral Pedal (Dorsalis Pedis) Palpation] 100 Respiratory Rate 18 Blood Pressure 120/59 L Pulse Oximetry 93 Intake/Output Intake/Output: Intake & Output 07/02/20 07/03/20 07/04/20 07/05/20 23:59 23:59 23:59 23:59 Intake Total 2050 2100 1350 Output Total 140 1300 500 Balance 1910 800 850 Meds/Results Medications: Active Medications Generic Name Dose Route Start Last Admin Trade Name Namanq PRN Reason Stop Dose Admin Allopurinol 150 mg 07/04/20 08:00 07/05/20 08:43 Allopurinol 150 Mg Tablet PO 150 mg DAILY@0800 [facility] Administration Folic Acid 1 mg 07/04/20 09:00 07/05/20 08:43 Folic Acid 1 Mg Tablet PO 1 mg DAILY AMBER Administration F
[2020-07-05] MEDS: LIDOCAINE 5% PATCH 2 PATCH TRANSDERM (17:01)
--- NOTE | 2020-07-05 18:34 | PC.NURSE ---
This patient, Lloyd Scales, was transferred to [ [id number]] on 07/05/20 at 1834. Personal belongings sent with patient. Report given to [ YADY Echols]. Appropriate documentation sent with patient.
--- NOTE | 2020-07-05 18:45 | PC.NURSE ---
This patient, Lloyd Scales, was received from [facility] on 07/05/20 at 1845. Patient/family oriented to unit policies and routines
[2020-07-06] MEDS: SODIUM CHLORIDE 0.9% IV 1,000 ML 80 ML IV CONT (05:24)
[2020-07-06 06:00] VITALS: BP 118/84; PULSE 96; RESP 20; TEMP 36.4; O2SAT 97
[2020-07-06 06:56] LABS: Basophils Percent Auto 0.5 % (0.2-1.2); Eosinophils Absolute Auto 0.1 K/mm3 (0-0.3); Eosinophils Percent Auto 2.4 % (0-4.4); Hematocrit 32.2 % (42.0-52.0); Hemoglobin 10.6 g/dL (14.0-18.0); Immature Granulocyte Absolute 0.02 K/mm3 (0.00-0.031); Immature Granulocyte Percent A 0.5 % (0-0.5); Lymphocytes Absolute Auto 1.15 K/mm3 (0.9-3.2); Lymphocytes Percent Auto 30.4 % (18.3-44.2); Mean Corpuscular HGB Conc 32.9 g/dl (32-36); Mean Corpuscular Volume 97.3 fl (80-100); Mean Platelet Volume 9.4 fl (7.4-10.4); Monocytes Absolute Auto 0.4 K/mm3 (0.1-0.6); Monocytes Percent Auto 11.1 % (2.6-8.5); Neutrophils Absolute Auto 2.1 K/mm3 (1.3-6.7); Neutrophils Percent Auto 55.1 % (45.5-73.1); Platelet Count Result 97 k/mm3 (150-375); Red Blood Count 3.31 M/mm3 (4.6-6.20); Red Cell Distribution Width 18.5 % (11.5-14.5); White Blood Count 3.8 K/mm3 (4.5-10.0)
[2020-07-06 07:06] LABS: Alanine Aminotransferase 11 U/L (4-50); Albumin Level 2.3 g/dL (3.5-5.1); Alkaline Phosphatase 90 U/L (38-126); Anion Gap 2 mmol/L (8-16); Aspartate Amino Transferase 34 U/L (17-59); Bilirubin,Total 1.2 mg/dL (0.2-1.3); Blood Urea Nitrogen 16 mg/dL (9-20); Calcium 7.6 mg/dL (8.4-10.2); Carbon Dioxide 27 mmol/L (22-30); Chloride 110 mmol/L (98-107); Estimated CRCL calculation 89 ml/min; Estimated Glomerular Filt Rate > 60; Glucose 100 mg/dL (75-110); Potassium 3.5 mmol/L (3.4-5.0); Sodium 139 mmol/L (137-145)
[2020-07-06] MEDS: allopurinoL 150 MG TABLET PO (08:40)
[2020-07-06] MEDS: FOLIC ACID 1 MG TABLET PO (08:42)
[2020-07-06] MEDS: THERAPEUTIC MULTIVITAMINS/MINERALS TAB (*BKC) 1 TABLET PO (08:42)
[2020-07-06] MEDS: MAGNESIUM OXIDE 400 MG TABLET PO (08:42)
[2020-07-06] MEDS: PANTOPRAZOLE SODIUM IV 40 MG VIAL IV PUSH (08:42)
[2020-07-06] MEDS: NICOTINE (*PBKC) 14 MG PATCH 1 PATCH TRANSDERM (08:42)
[2020-07-06] MEDS: FUROSEMIDE 40 MG TABLET PO (08:42)
[2020-07-06] MEDS: THIAMINE HCL 100 MG TABLET PO (08:43)
[2020-07-06] MEDS: TAMSULOSIN HCL 0.4 MG CAPSULE PO (08:43)
--- NOTE | 2020-07-06 09:25 | PCPTNOTE ---
Patient declined PT stating I will be going home later today. I have had loose stool and have been walking to the bathroom today without difficulty. PT will continue to follow per plan of care.
--- NOTE | 2020-07-06 09:50 | PM.DS ---
DS: Admitting Diagnosis Admitting Diagnosis Admitting Diagnosis: generalized weakness DS: Discharge Diagnosis Discharge Diagnosis (1) Alcoholic intoxication: Qualifiers: Complication of substance-induced condition: uncomplicated Qualified Code(s): F10.920 - Alcohol use, unspecified with intoxication, uncomplicated Code(s): F10.929 - Alcohol use, unspecified with intoxication, unspecified Status: Acute Assessment and Plan: counseling treated with [facility] protocol resolved follow-up with PCP (2) Acute UTI: Code(s): N39.0 - Urinary tract infection, site not specified Status: Acute Assessment and Plan: treated with IV Rocephin patient will be discharged on oral antibiotics (3) Chronic anemia: Code(s): D64.9 - Anemia, unspecified Status: Chronic Assessment and Plan: Probably anemia of chronic disease monitor follow-up with PCP workup as outpatient (4) Hypertension: Code(s): I10 - Essential (primary) hypertension Status: Chronic Assessment and Plan: Blood pressure on the lower side monitor hold losartan for now resume diuretics (5) BPH (benign prostatic hyperplasia): Code(s): N40.0 - Benign prostatic hyperplasia without lower urinary tract symptoms Status: Chronic Assessment and Plan: Continue medication (6) Mass of pancreas: Code(s): K86.89 - Other specified diseases of pancreas Status: Chronic Assessment and Plan: Patient also has adrenal mass has probable lytic lesion in the spine versus arthritis patient need to follow up with [facility] as arranged before follow-up with PCP (7) Ascites: Code(s): R18.8 - Other ascites Status: Acute Assessment and Plan: Had thoracentesis pending final culture (8) Cirrhosis of liver with ascites: Qualifiers: Hepatic cirrhosis type: alcoholic cirrhosis Qualified Code(s): K70.31 - Alcoholic cirrhosis of liver with ascites Code(s): K74.60 - Unspecified cirrhosis of liver; R18.8 - Other ascites Status: Acute Assessment and Plan: Counseling avoid fluid overload follow-up with GI probably would need paracentesis in 1-2 weeks DS: Summary Hospital Course Hospital Course: patient presents to the hospital with generalized weakness was found to have UTI dehydration was treated with IV fluid IV antibiotics patient also has significant ascites treated with paracentesis Time Spent with Patient Time attestation: Total time spent providing and/or coordinating discharge services: 30 minutes Exam Narrative: Exam Narrative: Confused Chest no wheeze crackles Abdomen distended nontender CVS S1 + S2 Lower extremity edema DS: Data Data Completed and Pending Completed studies during hospitalization: Pending at discharge 07/03/20 21:37 Cytology [PTH] Routine Labs on day of discharge: Labs from last 24 hours 07/06/20 07/06/20 06:08 06:08 WBC 3.8 L RBC 3.31 L Hgb 10.6 L Hct 32.2 L MCV 97.3 MCH 32.0 MCHC 32.9 RDW 18.5 H Plt Count 97 L MPV 9.4 Immature Gran % (Auto) 0.5 Neut % (Auto) 55.1 Lymph % (Auto) 30.4 Turner % (Auto) 11.1 H Eos % (Auto) 2.4 Baso % (Auto) 0.5 Lymph # (Auto) 1.15 Turner # (Auto) 0.4 Eos # (Auto) 0.1 Baso # (Auto) 0.0 Abs Immat Gran (auto) 0.02 Absolute Neuts (auto) 2.1 Absolute Nucleated RBC 0.0 Nucleated RBC % 0.0 Sodium 139 Potassium 3.5 Chloride 110 H Carbon Dioxide 27 Anion Gap 2 L BUN 16 Creatinine 0.70 Estim Creat Clear Calc 89 Estimated GFR > 60 Glucose 100 Calcium 7.6 L Total Bilirubin 1.2 AST 34 ALT 11 Alkaline Phosphatase 90 Total Protein 5.0 L Albumin 2.3 L Preliminary micro results at discharge 07/04/20 10:23 Anaerobic Culture - Preliminary Peritoneal Fluid Aerobic Culture - Preliminary 07/03/20 14:11 Blood Culture - Preliminary Blood 07/03/20 14:20 Blood Cu
[2020-07-07 11:51] LABS: Albumin Peritoneal Fluid 1.1 g/dL
== END 2020-07-06 11:10 | disposition home or self-care (01) | DRG 690 ==
LOC: ANHED 15:06 → ANH3MEDSUR 07-06 09:49 → ANHIMU 07-10 17:20
PROVIDERS: Physician Assistant; Admitting Provider Family Medicine; Emergency Provider Emergency Medicine; PCP Family Medicine; Visit Provider Internal Medicine
DX: N39.0 Urinary tract infection, site not specified (principal); G93.40 Encephalopathy, unspecified; E87.2 Acidosis; J96.10 Chronic respiratory failure, unspecified whether with hypoxia or hypercapnia; K70.31 Alcoholic cirrhosis of liver with ascites; F10.129 Alcohol abuse with intoxication, unspecified; K86.89 Other specified diseases of pancreas; E86.0 Dehydration; I10 Essential (primary) hypertension; N40.0 Benign prostatic hyperplasia without lower urinary tract symptoms; F17.210 Nicotine dependence, cigarettes, uncomplicated; E78.5 Hyperlipidemia, unspecified; H26.9 Unspecified cataract; D64.9 Anemia, unspecified; Q76.0 Spina bifida occulta; Z79.899 Other long term (current) drug therapy; Z99.81 Dependence on supplemental oxygen
CPT/HCPCS: 36415; 49083; 70450; 71045; 74177; 80053; 80307; 81001; 82042; 82140; 82550; 83605; 83690; 83735; 84443; 84484; 85025; 85027; 85610; 85730; 87040; 87070; 87075; 87077; 87086; 87088; 87205; 88104; 88108; 88305; 89051; 93005; 96361; 96374; 97161; 97165; 99285; A9270; C9113; J0696; J2405; J7030; Q9967

== ENCOUNTER 2022-01-29 09:44 | Day surgery (SDC) | payer MEDICARE, MEDICAID, SELFPAY ==
[2022-01-14 10:46] VITALS: BMI 26.9
--- NOTE | 2022-01-29 10:09 | WPDANESEPPF ---
Anes - Initial Pre Proc Eval Procedure: Operation Date: 01/29/22 11:00 Proposed Procedures p Cataract Extraction with Lens Implant-Right Eye - Sundeep Ingram MD Date/Time: 01/29/22 10:09 Surgeon: Sundeep Ingram MD Pre Op Diagnosis: Cataract Right Eye Patient Data Age: 61 Gender: M Height: 1.7 m Weight: 78 kg Allergies Allergy/AdvReac Type Severity Reaction Status Date / Time No Known Allergies Allergy Verified 01/29/22 10:13 Home Medications Medication Instructions Recorded Confirmed Type allopurinol 300 mg tablet 150 mg PO DAILY 04/27/20 01/14/22 History tamsulosin 0.4 mg capsule 0.4 mg PO DAILY 04/27/20 01/14/22 History furosemide 40 mg tablet 40 mg PO DAILY #30 tabs 05/04/20 01/14/22 Rx magnesium oxide 400 mg (241.3 mg 400 mg PO QAM #30 tabs 05/04/20 01/14/22 Rx magnesium) tablet spironolactone 50 mg tablet 100 mg PO 1600 #30 tabs 05/04/20 01/14/22 Rx (Aldactone) famotidine 20 mg tablet (Pepcid) 20 mg PO BID #30 tabs 07/06/20 01/14/22 Rx thiamine HCl (vitamin B1) 100 mg 100 mg PO QAM #30 tabs 07/06/20 01/14/22 Rx tablet (Vitamin B-1) alprazolam 0.5 mg tablet 0.5 mg PO QID PRN anxiety #120 tabs 10/14/21 01/14/22 Rx ergocalciferol (vitamin D2) 1,250 1,250 mcg PO WEEKLY 10/14/21 01/14/22 History mcg (50,000 unit) capsule (Vitamin D2) hydrocodone 7.5 mg-acetaminophen 1 tablet PO BID PRN pain #50 tabs 01/02/22 01/14/22 Rx 325 mg tablet Patient hx anesthesia problems: none Family hx anesthesia problems: none Results Review: All pre-operative results and documents have been reviewed as part of the pre-operative evaluation. [facility] Past Medical History Medical History Alcohol withdrawal seizure Alcoholism BPH (benign prostatic hyperplasia) Chronic anemia Hyperlipidemia Hypertension Liver cirrhosis Spina bifida occulta Surgical History Surgical History H/O hemorrhoidectomy S/P shoulder replacement Status post left foot surgery Family History Family History Mother Family history of diabetes mellitus in first degree relative Family history of coronary artery disease Heart disease Social History Social History Social History: the patient is disabled and he lives with his . He does not have any biological children but she has 2 children. The patient stated that he quit drinking alcohol about 2-3 months ago. Otherwise he would binge drink beer quite often. He denies any illicit drugs. The patient stated he still and about 3 or 4 cigarettes a day. The patient is listed as a full code. His is the durable power manager regulatory for healthcare. Smoking packs per day: 0.5 Smoking cigarettes per day: 10.0 Years smoked: 50 Smoking pack-years: 25.00 Smoking status: Current every day smoker Tobacco type: cigarettes Second hand tobacco smoke exposure: Yes Alcohol intake: current Drinks per week: 4 Substance use: never Substance use type: does not use Living arrangements: with family Additional occupation/education comments: Disability Gender identity (if verbalized by the patient): Male Spiritual care concerns: No Agree to blood products: Yes Anes - Eval Final PreProcedure Day of Procedure 01/29/22 10:09 Patient weight: overweight Heart: regular rate and rhythm Lungs: decreased breath sounds Airway: Mallampati scale class II Neurological: other (alert) Last oral intake: >/= 8 hours ASA classification: IV Emergent: no Anesthetic plan: proceed Anesthesia type and monitoring: monitored anesthesia care and standard monitoring Results Review: All pre-operative results and documents have been reviewed as part of the pre-operative evaluation. Informed Consent: The patient's anesthetic plan and its
[2022-01-29 10:15] VITALS: BMI 25.2
[2022-01-29 10:18] VITALS: BP 135/87; PULSE 95; RESP 16; TEMP 37.4; O2SAT 100
[2022-01-29] MEDS: TETRACAINE HCL 0.5% OPHTH SOLN 4 ML BTL 1 DROP AFFCTD EYE ×3 (10:26→10:36)
[2022-01-29] MEDS: OFLOXACIN 0.3% OPHTH SOLN 5 ML BTL 1 DROP AFFCTD EYE (10:26)
--- NOTE | 2022-01-29 11:26 | WPDHPUPDATE1 ---
History and Physical Update Update Date/Time: 01/29/22 11:26 History and Physical has been reviewed, including an updated exam of the patient. There are NO changes in the patient's condition. Risks, benefits, and alternatives have been discussed and questions answered. Patient agrees to proceed with procedure.
[2022-01-29] MEDS: LIDOCAINE HCL 2% JELLY 5 ML TUBE 1 APPLIC AFFCTD EYE (11:30)
[2022-01-29] MEDS: LIDOCAINE HCL 1% PF INJ 5 ML VIAL 1 ML INTRAOCULA (11:35)
[2022-01-29] MEDS: HOME MEDICATION 1 EACH AFFCTD EYE (12:15)
[2022-01-29] MEDS: NEOMYCIN/POLYMYXIN/DEXAMETH OP OINT 3.5 GM TUBE 1 APPLIC AFFCTD EYE (12:15)
[2022-01-29 12:21] VITALS: BP 148/83; PULSE 86; RESP 14; O2SAT 99
[2022-01-29] MEDS: acetaZOLAMIDE TAB 250 MG TABLET PO (12:25)
--- NOTE | 2022-01-29 12:38 | WPDANESPN ---
Anes - Prog Note Post-Op Date/Time: 01/29/22 12:38 Cardiovascular status: normal Respiratory status: normal Airway patency: baseline Mental status: baseline Post-Op hydration status: normal Vital Signs: Last Vital Signs Temp 37.4 C 01/29/22 10:18 Pulse 86 01/29/22 12:21 Resp 14 01/29/22 12:21 BP 148/83 H 01/29/22 12:21 Pulse Ox 99 01/29/22 12:21 O2 Del Method Room Air 01/29/22 12:21 Pain Score (VAS): 0 Patient Feedback: Patient satisfied with anesthetic care.
--- NOTE | 2022-01-29 12:53 | W.PM.PROC2 ---
Procedure Note - Detailed Date of Procedure 01/29/22 Pre-op Diagnosis 1) Morgagnian Cataract Right Eye Post-op Diagnosis Same Procedure Performed Complex Cataract Extraction (by Phacoemulsification) and lntraocular Lens Implant RIGHT EYE Surgeon Sundeep Ingram MD Description of Procedure The eye was anesthetized with topical 0.75% bupivacaine. After intravenous sedation and placement of monitors, the patient was prepped and draped in the usual sterile manner. A lid speculum was placed. A paracentesis was made, and preservative free 1% lidocaine was instilled in the anterior chamber. The red reflex was very poor due to the extreme cloudiness and density of the mature cataract. Trypan blue was used to stain the anterior lebns capsule. The anterior chamber was then filled with Viscoat viscoelastic. A ranulfo keratome was used to create the wound. Continuous tear anterior capsulotomy was performed. The lens was hydro dissected before being removed with phacoemulsification. The lens was mature and extremely dense, leading to a prolonged duration of the procedure. The remaining lenticular cortex was removed with aspiration. The capsular bag was polished and filled with viscoelastic material. An intraocular lens was chosen, inspected, irrigated and placed within the capsular bag where it was seen to be centered and stable. The viscoelastic material was aspirated. The wound was closed and found to be watertight. Ciloxan drops were placed in the eye. The speculum was removed. A Fowler shield was applied. The patient tolerated the procedure well and left the operating room in satisfactory condition. Implants See chart Complications None Condition Stable Disposition Same day
== END 2022-01-29 12:55 | disposition home or self-care (01) ==
PROVIDERS: PCP Family Medicine Adolescent Medicine; Visit Provider Student in an Organized Health Care Education/Training Program
PROC: (CPT 66983; principal; 2022-01-29 11:00)
DX: H25.21 Age-related cataract, morgagnian type, right eye (principal)
CPT/HCPCS: 66982

== ENCOUNTER 2024-05-14 21:47 | Emergency (ER) | payer MEDICARE, MEDICAID, SELFPAY ==
--- NOTE | ~2024-05-14 | CT_ITS ---
EXAMINATION: CT brain wo con DATE: 05/14/2024 23:34 INDICATION: Fall. TECHNIQUE: Computed tomography (CT) of the head was performed without intravenous contrast. The mA wa s adjusted according to patient size. Iterative reconstruction technique was employed. The dose-lengt h product was 681.00 mGy-cm. COMPARISON: Head CT 07/03/2020 FINDINGS: There is diffuse brain volume loss. There is no intracranial hemorrhage, acute infarction, or abnormal intracranial mass lesion. There are scattered areas of low attenuation in the cerebral wh ite matter, which is within normal limits for the patient's age. The ventricles are normal in size. T here is mild mucosal thickening in the paranasal sinuses. The mastoid air cells are normal. There are likely changes of ocular lens replacement surgeries. IMPRESSION: 1. Diffuse brain volume loss, worse than expected for age. Reviewed, dictated and finalized at location A. N FINISHER
--- NOTE | ~2024-05-14 | CT_ITS ---
EXAMINATION: CT lumbar spine wo con DATE: 05/14/2024 23:35 INDICATION: Low back pain. Fall. TECHNIQUE: Computed tomography (CT) of the lumbar spine was performed without intravenous contrast. A utomated exposure control and iterative reconstruction technique were employed. The dose-length produ ct was 1132.65 mGy-cm. COMPARISON: CT abdomen and pelvis 07/03/2020 FINDINGS: There is a chronic 2.5 cm mass in left adrenal gland, consistent with an adenoma. There is 18 degrees dextroscoliosis of lumbar spine. There are chronic bilateral L5 pars defects. There is 4 m m anterolisthesis of L5 on S1. There is mildly decreased disc height at L1-L2, severely decreased dis c height at L2-L3, mildly decreased disc height at L3-L4, severely decreased disc height at L4-L5, an d mildly decreased disc height at L5-S1. The following disc levels are specifically discussed: L1-L2: The disc is bulging. There is moderate right and mild left facet joint osteoarthritis. There i s mild bilateral neural foraminal stenosis. There is mild central canal stenosis. L2-L3: The disc is bulging. There is moderate right and mild left facet joint osteoarthritis. There i s mild right and moderate left neural foraminal stenosis. There is mild central canal stenosis. L3-L4: The disc is bulging. There is mild bilateral facet joint osteoarthritis. There is mild bilater al neural foraminal stenosis. There is mild central canal stenosis. L4-L5: The disc is bulging. There is moderate right and mild left facet joint osteoarthritis. There i s moderate right and mild left neural foraminal stenosis. There is mild central canal stenosis. L5-S1: The disc is bulging. There is mild bilateral facet joint osteoarthritis. There is mild bilater al neural foraminal stenosis. There is mild central canal stenosis. IMPRESSION: 1. Chronic bilateral L5 pars defects with grade 1 anterolisthesis of L5 on S1. 2. Severe lumbar spondylosis. 3. Lumbar dextroscoliosis. Reviewed, dictated and finalized at location A. MAKER
--- NOTE | ~2024-05-14 | CT_ITS ---
EXAMINATION: CT abdomen pelvis w con DATE: 05/14/2024 23:58 INDICATION: Hyperbilirubinemia. TECHNIQUE: Computed tomography (CT) of the abdomen and pelvis was performed with 100 mL Omnipaque 350 intravenous contrast. Automated exposure control and iterative reconstruction technique were employe d. The dose-length product was 746.46 mGy-cm. COMPARISON: CT abdomen and pelvis 07/03/2020 FINDINGS: The visualized portions of the lung bases demonstrate mild atelectasis. No pleural effusion . The heart size is normal. No pericardial effusion. The liver demonstrates heterogeneous attenuation and surface nodularity, consistent with cirrhosis. There is a periuterine portacaval shunt. There is a splenorenal portacaval shunt. Calcifications in the spleen are consistent with old granulomatous d isease. There are gallstones in the gallbladder which is normal in size. There are calcifications in low attenuation in the head of the pancreas, consistent with chronic pancreatitis. There is thickenin g of left adrenal gland right adrenal gland, likely benign. There is a 2.6 cm mass in left adrenal gl and is chronic, likely an adenoma. The kidneys are normal. There are no dilated loops of bowel. The a ppendix is normal. There are no pathologically enlarged lymph nodes. There is a small volume of perih epatic ascites. There is lumbar dextroscoliosis and severe spondylosis. There are old healed left rib fractures. IMPRESSION: 1. Cirrhosis of the liver with portal venous hypertension. 2. Small volume of perihepatic ascites. Reviewed, dictated and finalized at location A. CTOR OF PRIMARY
[2024-05-14 21:57] VITALS: BP 86/57; PULSE 104; RESP 15; TEMP 36.3; O2SAT 100
--- NOTE | 2024-05-14 22:56 | ED.BACK ---
HPI - Back Pain/Injury General Chief Complaint: Back Pain/Injury Stated Complaint: back pain Time Seen by Provider: 05/14/24 22:32 Source: patient Mode of arrival: EMS Limitations: no limitations History of Present Illness HPI Narrative: This is a 64-year-old male that presents to the emergency department for chronic low back pain. Reports he had a fall a couple of weeks ago. His pain has been worse than usual since. He does not believe the hit his head. He did not lose consciousness. He took his prescribed [place] with little relief. Denies saddle anesthesia, bowel/bladder incontinence. Related Data Home Medications ?Medication ?Instructions ?Recorded ?Confirmed ?Last Taken ?Type vitamin B comp and C no.3 15 mg-10 1 cap PO DAILY 01/21/23 10/12/23 Unknown History mg-50 mg-5 mg-300 mg capsule Allergies Allergy/AdvReac Type Severity Reaction Status Date / Time No Known Allergies Allergy Verified 01/21/23 13:57 Review of Systems Review of Systems: CONSTITUTIONAL: Denies fever MUSCULOSKELETAL: Reports back pain, and myalgia. NEUROLOGIC: Denies numbness, or weakness. All systems reviewed & are unremarkable except as noted in HPI and below PMFSH Past Medical History Medical History Alcohol withdrawal seizure Alcoholism BPH (benign prostatic hyperplasia) Chronic anemia Hyperlipidemia Hypertension Liver cirrhosis Spina bifida occulta Surgical History Surgical History H/O hemorrhoidectomy S/P shoulder replacement Status post left foot surgery Family History Family History Mother Family history of diabetes mellitus in first degree relative Family history of coronary artery disease Heart disease Social History Social History Social History: the patient is disabled and he lives with his . He does not have any biological children but she has 2 children. The patient stated that he quit drinking alcohol about 2-3 months ago. Otherwise he would binge drink beer quite often. He denies any illicit drugs. The patient stated he still and about 3 or 4 cigarettes a day. The patient is listed as a full code. His is the durable power patent prosecution attorney for healthcare. Smoking packs per day: 0.5 Smoking cigarettes per day: 10.0 Years smoked: 50 Smoking pack-years: 25.00 Smoking status: Current every day smoker Tobacco type: cigarettes Second hand tobacco smoke exposure: Yes Alcohol intake: current Drinks per week: 4 Substance use: never Substance use type: does not use Living arrangements: with family Additional occupation/education comments: Disability Gender identity (if verbalized by the patient): Male Spiritual care concerns: No Agree to blood products: Yes Exam Narrative: GENERAL: Well-appearing, well-nourished, and in no acute distress. HEAD: Normocephalic, atraumatic. EYES: PERRLA and EOMI. ENT: Nares clear, no rhinorrhea or epistaxis. Mucous membranes moist. Oropharynx without tonsillar hypertrophy exudate or other lesions. Bilateral TMs pearly da silva non-bulging NECK: Supple. No adenopathy or masses. CHEST: Clear to auscultation. No respiratory distress. No wheezes rales or rhonchi HEART: Regular rate and rhythm. No murmur heard. Normal peripheral pulses. BACK: Tender to palpation of midline lumbar spine EXTREMITIES: Normal range of motion. No edema. Strength equal in bilateral lower extremities (5/5) SKIN: Warm, dry, no rash. NEURO: No focal deficits. Alert and oriented x3. CN II-XII grossly intact PSYCH: Normal mood and affect Course Course Emergency Course: patient resting. Updated on his workup and agrees with plan of care Vital Signs Vital signs: Vital Signs Temperature 97.4 F L 05/14/24 21:57 Pulse Rate 104 H 05/14/24 21:57 Respiratory Rate 15 05/14/24 21:57 Blood Pressure 86/57 L 05/14/24 21:57 Pulse Oximetry 100 05/14/24 21:57 Oxygen Delivery Room Air 05/14/24 21:57 Temperature 97.4 F L 05/14/24 21:57 Pulse Rate 104 H 05/14/24 21:57 Respiratory Rate 15 05/14/24 21:57 Blood Pressure 86/57 L 05/14/24 21:57 Pulse Oximetry 100 05/14/24 21:57 Oxygen Delivery Room Air 05/14/24 21:57 MDM - Back Pain/Injury MDM Narrative Medical decision making narrative: patient presents to the emergency department for chronic low back pain. Reporting a fall a couple of weeks prior. He is afebrile and nontoxic appearing. Blood pressure soft upon arrival, this normalized without intervention. He is neurologically intact. CBC shows macrocytic anemia. Metabolic panel with mild hypokalemia. Also shows hyponatremia, which appears to be an intermittent problem for patient. He does have history of alcohol abuse. Patient was hydrated with IV fluids in the ER. Total bilirubin is elevated at 5.5, and not have any recent blood work for comparison of this. CT abdomen pelvis does show cirrhosis, no other acute findings to explain hyperbilirubinemia. CT lumbar spine without acute osseous abnormalities. Patient resting upon re-evaluation. Updated on his workup and agrees with plan of care. He is to follow up with primary provider. He was given warnings to return to the ER Differential Diagnosis Differential diagnosis: Likely lumbar radiculopathy, sciatica, strain of lumbar region and other ( cirrhosis, subdural hematoma, electrolyte derangement, dehydration) Lab Data Attestation: I reviewed the patient's lab results. 05/14/24 23:11 05/14/24 23:11 Labs: Lab Results 05/14/24 Range/Units 23:11 WBC 4.7 (4.5-10.0) K/mm3 RBC 3.58 L (4.6-6.20) M/mm3 Hgb 13.2 L (14.0-18.0) g/dL Hct 37.1 L (42.0-52.0) % MCV 103.6 H (80-100) fl MCH 36.9 H (26-34) pg MCHC 35.6 (32-36) g/dl RDW 18.6 H (11.5-14.5) % Plt Count 115 L (150-375) k/mm3 MPV 9.3 (7.4-10.4) fl Immature Gran % (Auto) 0.9 H (0-0.5) % Neut % (Auto) 74.0 H (45.5-73.1) % Lymph % (Auto) 10.2 L (18.3-44.2) % [place] % (Auto) 13.2 H (2.6-8.5) % Eos % (Auto) 1.1 (0-4.4) % Baso % (Auto) 0.6 (0.2-1.2) % Lymph # (Auto) 0.48 L (0.9-3.2) K/mm3 [place] # (Auto) 0.6 (0.1-0.6) K/mm3 Eos # (Auto) 0.1 (0-0.3) K/mm3 Baso # (Auto) 0.0 (0.0-0.1) K/mm3 Abs Immat Gran (auto) 0.04 H (0.00-0.031) K/mm3 Absolute Neuts (auto) 3.5 (1.3-6.7) K/mm3 Absolute Nucleated RBC 0.000 (0.0-0.012) K/mm3 Nucleated RBC % 0.0 (0.0-0.2) % Sodium 129 L (137-145) mmol/L Potassium 3.2 L (3.4-5.0) mmol/L Chloride 98 (98-107) mmol/L Carbon Dioxide 22 (22-30) mmol/L Anion Gap 9 (4-12) mmol/L BUN 12 (9-20) mg/dL Creatinine 0.90 (0.7-1.3) mg/dL Estim Creat Clear Calc 67 ml/min Estimated GFR > 60 (59 - ) Glucose 140 H (65-110) mg/dL Calcium 8.5 (8.4-10.2) mg/dL Total Bilirubin 5.5 H (0.2-1.3) mg/dL AST 136 H (17-59) U/L ALT 41 (6-50) U/L Alkaline Phosphatase 190 H (38-126) U/L Total Protein 7.0 (6.3-8.2) g/dL Albumin 3.1 L (3.5-5.1) g/dL Imaging Data Radiologist's impression: CT brain: [id number] diffuse cerebral and cerebellar atrophy, per similar to previous. The brain is otherwise unremarkable CT abdomen and pelvis: cirrhosis. Portal venous hypertension. Calcific gallstones within a nondilated gallbladder. No surrounding inflammation, biliary duct dilation, or choledocholithiasis. Chronic pancreatitis. Enlargement of the left adrenal gland. The abdominal aorta is heavily calcified, but nondilated. Kidneys enhance normally with contrast. The appendix is normal. Bowel loops are nondilated. No acute inflammatory changes are seen involving the bowel. The urinary bladder is partially distended and unremarkable. Mild degenerative changes throughout the spine, mildly increased compared to previous. No acute fracture. Fractures of the left 7th, 8th and 9th ribs appear chronic CT lumbar spine: the lumbar spine vertebral body heights are within normal limits. No acute compression fracture burst fracture seen. [id number] disc space narrowing and osteophytosis involving L1/2, L2/3, L4/5. Chronic appearing bilateral pars defects at L5. No acute fracture or traumatic subluxation is seen. Critical Care Time Critical Care Time Critical Care Time: No Discharge Plan Discharge Clinical Impression: Hyponatremia, Hypokalemia Chronic low back pain Qualifiers: Back pain laterality: left Sciatica presence: without sciatica Qualified Code(s): M54.50 - Low back pain, unspecified Cirrhosis Qualifiers: Hepatic cirrhosis type: unspecified hepatic cirrhosis Ascites presence: without ascites Qualified Code(s): K74.60 - Unspecified cirrhosis of liver Patient Disposition: Home, Self-Care Condition: Improved Instructions: Cirrhosis of the Liver (ED), Hyponatremia (ED), Hypokalemia (ED), Back Pain (ED) Additional Instructions: Return to the emergency department if you experience fever, chest pain, shortness of breath, abdominal pain with nausea and vomiting, weakness, numbness, or any other symptoms that are concerning to you. Rrmn-pzy-[id number] pain medication as needed. Prescribed pain medication as needed Follow up with your primary care doctor Dr. Jiang is our neurosurgeon (back doctor) cash controller if needed Patient Language: Icelandic Prescriptions: No Action vitamin B comp and C no.3 [id number] mg capsule 1 cap PO DAILY Rx Instructions: give with food (meal/snack) baclofen 20 mg tablet 20 mg PO QHS Qty: 30 5RF Rx Instructions: For muscle cramps magnesium oxide 400 mg (241.3 mg magnesium) Tablet 400 mg PO QAM Qty: 30 0RF famotidine [Pepcid] 20 mg tablet 20 mg PO BID Qty: 30 0RF furosemide 40 mg tablet See Rx Instructions .ROUTE .COMPLEX Qty: 90 2RF Dose Instruction: TAKE 1 TABLET BY MOUTH DAILY Rx Instructions: TAKE 1 TABLET BY MOUTH DAILY tamsulosin 0.4 mg capsule 0.4 mg PO DAILY Qty: 90 2RF alprazolam 0.5 mg tablet 0.5 mg PO QID PRN (Reason: anxiety) Qty: 360 1RF spironolactone [Aldactone] 50 mg tablet 100 mg PO 1600 Qty: 180 1RF allopurinol 300 mg tablet 150 mg PO DAILY Qty: 45 6RF mupirocin 2 % ointment 1 applic topical BID Qty: 22 1RF hydrocodone-acetaminophen 7.5-325 mg tablet 1 tablet PO BID PRN (Reason: pain) Qty: 60 0RF Follow-up/Referrals: Senait Jiang MD [Physician] - Ramirez Renae MD [Primary Care Provider] -
[2024-05-14 23:15] LABS: Basophils Percent Auto 0.6 % (0.2-1.2); Eosinophils Absolute Auto 0.1 K/mm3 (0-0.3); Eosinophils Percent Auto 1.1 % (0-4.4); Hematocrit 37.1 % (42.0-52.0); Hemoglobin 13.2 g/dL (14.0-18.0); Immature Granulocyte Absolute 0.04 K/mm3 (0.00-0.031); Immature Granulocyte Percent A 0.9 % (0-0.5); Lymphocytes Absolute Auto 0.48 K/mm3 (0.9-3.2); Lymphocytes Percent Auto 10.2 % (18.3-44.2); Mean Corpuscular HGB Conc 35.6 g/dl (32-36); Mean Corpuscular Hemoglobin 36.9 pg (26-34); Mean Corpuscular Volume 103.6 fl (80-100); Mean Platelet Volume 9.3 fl (7.4-10.4); Monocytes Absolute Auto 0.6 K/mm3 (0.1-0.6); Monocytes Percent Auto 13.2 % (2.6-8.5); Neutrophils Absolute Auto 3.5 K/mm3 (1.3-6.7); Platelet Count Result 115 k/mm3 (150-375); Red Blood Count 3.58 M/mm3 (4.6-6.20); Red Cell Distribution Width 18.6 % (11.5-14.5); White Blood Count 4.7 K/mm3 (4.5-10.0)
[2024-05-14] MEDS: diazePAM INJ (*CRX) 10 MG/2 ML SYRINGE 5 MG IM (23:18)
[2024-05-14 23:27] LABS: Alanine Aminotransferase 41 U/L (6-50); Albumin Level 3.1 g/dL (3.5-5.1); Alkaline Phosphatase 190 U/L (38-126); Anion Gap 9 mmol/L (4-12); Aspartate Amino Transferase 136 U/L (17-59); Bilirubin,Total 5.5 mg/dL (0.2-1.3); Blood Urea Nitrogen 12 mg/dL (9-20); Calcium 8.5 mg/dL (8.4-10.2); Carbon Dioxide 22 mmol/L (22-30); Chloride 98 mmol/L (98-107); Estimated CRCL calculation 67 ml/min; Estimated Glomerular Filt Rate > 60; Glucose 140 mg/dL (65-110); Potassium 3.2 mmol/L (3.4-5.0); Sodium 129 mmol/L (137-145)
[2024-05-15] MEDS: SODIUM CHLORIDE 0.9% IV 500 ML 999 ML IV CONT (00:34)
[2024-05-15] MEDS: POTASSIUM CHLORIDE 20 MEQ ER TABLET 40 MEQ PO (01:58)
[2024-05-15 07:30] VITALS: BP 108/72; PULSE 90; RESP 16; O2SAT 100
[2024-05-15 08:30] VITALS: BP 122/70; PULSE 90; RESP 16; O2SAT 98
[2024-05-15 09:30] VITALS: BP 106/66; PULSE 90; RESP 16; O2SAT 97
[2024-05-15 10:30] VITALS: BP 110/64; PULSE 93; RESP 16; O2SAT 100
[2024-05-15 12:30] VITALS: BP 116/69; PULSE 96; RESP 16; O2SAT 100
== END 2024-05-15 14:10 | disposition home or self-care (01) ==
PROVIDERS: Emergency Provider Physician Assistant; PCP Family Medicine Adolescent Medicine
DX: M54.50 Low back pain, unspecified (principal); G89.29 Other chronic pain; K74.60 Unspecified cirrhosis of liver; E87.1 Hypo-osmolality and hyponatremia; E87.6 Hypokalemia; I10 Essential (primary) hypertension; E78.5 Hyperlipidemia, unspecified; N40.0 Benign prostatic hyperplasia without lower urinary tract symptoms; D64.9 Anemia, unspecified; F17.210 Nicotine dependence, cigarettes, uncomplicated; Q76.0 Spina bifida occulta; Z96.619 Presence of unspecified artificial shoulder joint; Z79.899 Other long term (current) drug therapy; M47.816 Spondylosis without myelopathy or radiculopathy, lumbar region; K76.6 Portal hypertension
CPT/HCPCS: 36415; 70450; 72131; 74177; 80053; 85025; 96360; 96372; 99283; 99284; A9270; J3360; J7040; Q9967

== ENCOUNTER 2024-10-05 04:47 | Inpatient (IN) | payer MEDICARE, MEDICAID, SELFPAY ==
[2024-10-05] VITALS (8 sets, daily range): BP systolic 90–103; BP diastolic 56–72; PULSE 95–103; RESP 14–20; TEMP 35.9–36.8; O2SAT 95–98; BMI 33.1
--- NOTE | ~2024-10-05 | XR_ITS ---
Portable chest x-ray Comparison: 07/03/2020 Clinical History: Weakness Findings: Probable discoid left basilar atelectasis or scarring. Right lung clear. Cardiomediastina l silhouette is stable. Bones and soft tissues are unremarkable. Impression: Probable discoid left basilar atelectasis or scarring, otherwise clear lungs. Reviewed, dictated and finalized at [facility]. Impression: Probable discoid left basilar atelectasis or scarring, otherwise clear lungs.
--- NOTE | ~2024-10-05 | US_ITS ---
EXAMINATION: US paracentesis abd w/image DATE: 10/06/2024 13:46 INDICATION: Ascites. TECHNIQUE: The procedure and its risks and benefits were discussed with the patient. Potential risks discussed included bleeding and infection. The skin was prepped and draped in sterile fashion. 6 mL 1 % lidocaine was injected subcutaneously for local anesthesia. Under ultrasound guidance, a [address] with trochar was advanced into the ascites in the left lower quadrant. Fluid was aspirated into v acuum bottles. The catheter was removed, and a dressing was applied. There were no immediate complica tions. FINDINGS: Ultrasound images demonstrate ascites and the catheter within the fluid. IMPRESSION: 1. Successful ultrasound-guided paracentesis yielding 5000 mL of straw-colored fluid. Reviewed, dictated and finalized at location A.
--- NOTE | ~2024-10-05 | XR_ITS ---
[XR ribs RT 2V ] INDICATION: Right rib pain TECHNIQUE: Frontal projection of the upper right ribs, frontal projection of the lower right ribs, ob lique projection of all the right ribs, frontal inspiratory chest x-ray for interpretation. COMPARISON: CT dated 10/05/2024 FINDINGS: There is an acute nondisplaced right 10th rib fracture. Possible nondisplaced right ninth a nd 11th rib fractures. There are gallstones. There is right basilar atelectasis. There are no soft ti ssue abnormality seen. IMPRESSION: 1: Acute right 10th rib fracture. Possible right ninth and 11th rib fractures. 2: Gallstones. Reviewed, dictated and finalized at location A.
--- NOTE | ~2024-10-05 | CT_ITS ---
Non-contrast Head CT History: Status post fall, weakness COMPARISON: 05/14/2024 Technique: Axial non-contrast imaging of the brain was performed. Dose reduction technique was used on this scan by utilizing automated exposure control and iterative reconstruction technique. The dose -length product (DLP) was 681.00 mGy-cm. Findings: There is no evidence of intracranial hemorrhage, mass lesion, or acute infarct. Brain par enchyma appears normal. The ventricles and subarachnoid spaces are dilated. The calvarium appears n ormal. The visualized paranasal sinuses and mastoid air cells are clear. Impression: No acute abnormality seen. Moderate generalized atrophy. Reviewed, dictated and finalized at location . Impression: No acute abnormality seen. Moderate generalized atrophy.
--- NOTE | ~2024-10-05 | CT_ITS ---
Noncontrast CT scan of the cervical spine Technique: Multiple contiguous axial [address] images of the cervical spine were obtained and rec onstructed in 2D sagittal and coronal planes on the acquisition scanner. Dose reduction technique was used on this scan by utilizing automated exposure control, adjustment of the mA and/or kV according to patient size. The dose-length product (DLP) was 415.14 mGy-cm. Clinical History: Pain Findings: No acute fracture. There is 3 mm anterolisthesis of C2 over C3. There is reversal normal ce rvical lordosis. At C2-C3, no definite disc bulge or herniation seen. No definite canal stenosis, cord compression, or neural foraminal narrowing. At C3-C4, there is severe degenerative disc narrowing. There is mild disc osteophyte complex. No defi nite canal stenosis, cord compression, or neural foraminal narrowing. At C4-C5, there is severe degenerative distended with mild disc osteophyte complex. There is bilatera l neural foraminal narrowing. No definite canal stenosis or cord compression. At C5-C6, there is severe degenerative tearing. There is mild disc osteophyte complex. There is no de finite canal stenosis or cord compression. There is bilateral neural foraminal narrowing. At C6-C7, there is severe degenerative disc narrowing. Probable mild bilateral neural foraminal narro wing. No definite canal stenosis or cord compression. No prevertebral soft tissue swelling. Impression: No acute fracture. 3 mm anterolisthesis of C2 over C3. Moderate to advanced degenerative change in the cervical spine, as above. Reviewed, dictated and finalized at [facility]. Impression: No acute fracture. 3 mm anterolisthesis of C2 over C3. Moderate to advanced degenerative change in the cervical spine, as above.
--- NOTE | ~2024-10-05 | US_ITS ---
US abdomen limited INDICATION: Hyperbilirubinemia PROCEDURE: Realtime right upper abdominal ultrasound. COMPARISON: No prior studies for comparison. FINDINGS: The pancreas is normal without focal mass or pancreatic ductal dilation. Liver echotexture is diffusely increased and heterogeneous. Nodular liver surface, compatible cirrhosis. There is asci imtiaz. There is normal directional flow in the portal vein. Gallbladder contains echogenic material the gallbladder neck may represent stones or sludge. Common bile duct measures 3 mm. No sonographic Diaz's sign. IMPRESSION: 1: Cirrhosis of the liver with ascites. 2: Echogenic material dependently near the gallbladder neck which may represent sludge or stones. Reviewed, dictated and finalized at location A. IMPRESSION: 1: Cirrhosis of the liver with ascites. 2: Echogenic material dependently near the gallbladder neck which may represen t sludge or stones.
--- NOTE | ~2024-10-05 | CT_ITS ---
Clinical Indication: Weakness, cirrhosis CT Scan of the Chest, Abdomen, and Pelvis with Contrast: Technique: Contiguous sections were acquired throughout the chest, abdomen, and pelvis after intraven ous administration of 100 cc of Omnipaque 350. Dose reduction technique was used on this scan by richard shining automated exposure control and iterative reconstruction technique. The dose-length product (DL P) was 1613.20 mGy-cm. Comparison: 05/14/2024 Findings: There is no evidence of any significant mediastinal, hilar or axillary lymphadenopathy. The mediastin al soft tissues appear normal. There is no evidence of pleural or pericardial effusion. There is discoid atelectatic change in the right upper lobe versus scarring. There is mild bibasilar scarring or atelectasis. No suspicious pulmonary nodule or consolidation evident. Liver is small and nodular in contour, compatible with cirrhosis. No hepatic mass or biliary dilatati on evident. Multiple calcified gallstones are present. Prominent recanalized periumbilical vein prese nt. Extensive splenorenal varices are present. The spleen and kidneys are within normal limits. There are focal calcifications of the pancreatic head, though common duct stones are not completely exclud ed. Stable 2.7 cm left adrenal nodule. Diffuse thickening versus nodularity the right adrenal gland i s also similar to prior exam. There are atherosclerotic calcifications of the aorta. No lymphadenopa thy. No bowel obstruction or bowel wall thickening. There is no evidence to suggest acute appendicitis. Urinary bladder is unremarkable. No pelvic mass seen. Large amount of abdominopelvic ascites present. Impression: Cirrhotic liver with associated varices and large amount of abdominopelvic ascites. Stable 2.7 cm adrenal nodule and thickening/nodularity the right adrenal gland. Cholelithiasis. Stable focal calcifications of the pancreatic head. Common duct stones are not completely excluded, t tonya this is more likely related to chronic pancreatitis. No biliary dilatation evident. Reviewed, dictated and finalized at location M. Impression: Cirrhotic liver with associated varices and large amount of abdominopelvic asci imtiaz. Stable 2.7 cm adrenal nodule and thickening/nodularity the right adrenal gland. Cholelithiasis. Stable focal calcifications of the pancreatic head. Common duct stones are not completely excluded, though this is more likely related to chronic pancreatitis . No biliary dilatation evident.
--- NOTE | 2024-10-05 04:53 | ECG_ITS ---
Test Date: 2024-10-05 05:44:38 Measurements Intervals [place] Rate: 100 P: 24 TN: 134 QRS: 40 QRSD: 96 T: 57 QT: 386 QTc: 498 Interpretive Statements SINUS TACHYCARDIA LOW QRS VOLTAGE [QRS DEFLECTION < 0.5/1.0 mV IN LIMB/CHEST LEADS] SEPTAL MYOCARDIAL INFARCTION , PROBABLY OLD [40+ ms Q WAVE IN V1/V2] No previous ECG available for comparison Electronically Signed On 10-05-2024 11:58:10 CDT by Demian Arredondo M.D.
--- NOTE | 2024-10-05 05:07 | ED_ITS ---
HPI - General Adult General Chief complaint: Fall Stated complaint: Fall Time Seen by Provider: 10/05/24 04:53 History of Present Illness HPI narrative: This is a 64-year-old male with a history of liver cirrhosis alcohol abuse presenting for a fall. Patient is trying to get out of bed earlier today and fell striking his head on the ground. He did not use conscious this. He is not on blood thinners. Patient states that he has been getting progressively weaker over the last several months. His appetite has decreased. Over the last several days he has developed diffuse abdominal pain and distension. He denies fevers chills chest pain difficulty breathing. No urinary symptoms. Goals of care were discussed with the patient and he is DNR/DNI. Related Data Home Medications ?Medication ?Instructions ?Recorded ?Confirmed ?Last Taken ?Type vitamin B comp and C no.3 15 mg-10 1 cap PO WEEKLY 01/21/23 10/05/24 Unknown History mg-50 mg-5 mg-300 mg capsule Allergies Allergy/AdvReac Type Severity Reaction Status Date / Time No Known Allergies Allergy Verified 10/05/24 10:07 [facility] Past Medical History Medical History Chronic anemia Spina bifida occulta Alcohol withdrawal seizure BPH (benign prostatic hyperplasia) Hyperlipidemia Alcoholism Liver cirrhosis Hypertension Surgical History Surgical History Status post left foot surgery H/O hemorrhoidectomy S/P shoulder replacement Family History Family History Mother Family history of diabetes mellitus in first degree relative Family history of coronary artery disease Heart disease Social History Social History Social History: the patient is disabled and he lives with his . He does not have any biological children but she has 2 children. The patient stated that he quit drinking alcohol about 2-3 months ago. Otherwise he would binge drink beer quite often. He denies any illicit drugs. The patient stated he still and about 3 or 4 cigarettes a day. The patient is listed as a full code. His is the durable power deputy county attorney for healthcare. Smoking packs per day: 0.5 Smoking cigarettes per day: 10.0 Years smoked: 50 Smoking pack-years: 25.00 Smoking status: Current every day smoker Tobacco type: cigarettes Second hand tobacco smoke exposure: Yes Alcohol intake: current Drinks per week: 4 Substance use: never Substance use type: does not use Do You Feel Safe in your Home?: Yes Lack of Transportation: No Lack of Food: Never True Current Housing: I Have Housing Concerned About Future Housing: Decline to Answer Difficulty Paying Gas/Electric Bills: Decline to Answer Difficulty Paying for Meds: Decline to Answer Currently Unemployed: Decline to Answer Education: Decline to Answer Difficulty w/ Childcare or Family Care: Decline to Answer Living arrangements: with family Additional occupation/education comments: Disability Gender identity (if verbalized by the patient): Male Spiritual care concerns: No Agree to blood products: Yes Course Vital Signs Vital signs: Vital Signs Temperature 98.2 F 10/05/24 04:53 Pulse Rate 101 H 10/05/24 04:53 Respiratory Rate 14 10/05/24 04:53 Blood Pressure 96/56 L 10/05/24 04:53 Pulse Oximetry 95 10/05/24 04:53 Oxygen Delivery Room Air 10/05/24 04:53 Temperature 96.6 F L 10/05/24 14:00 Pulse Rate 101 H 10/05/24 14:00 Respiratory Rate 18 10/05/24 14:00 Blood Pressure 101/72 10/05/24 14:00 Pulse Oximetry 98 10/05/24 14:00 Oxygen Delivery Room Air 10/05/24 11:12 Procedures Paracentesis Paracentesis #1: Paracentesis Date: 10/05/24 Paracentesis Time: 06:05 Time Out Performed: Yes Indication: possible spontaneous bacterial peritonitis Procedure: diagnostic paracentesis Location: LLQ Local Anesthetic: lidocaine 1% Amount of anesthesia used (mL): 3 Bedside Ultrasound Used: yes, real-time guidance Preparation: sterile prep and drape Amount of fluid obtained (mL): 2,200 Fluid: clear (yellowish) Post Procedure Exam: awake, alert, normal BP, normal HR and normal SpO2 Patient Tolerated Procedure: well Complications: none Medical Decision Making MDM Narrative Medical decision making narrative: -Course: 64-year-old male history of alcoholic liver cirrhosis presenting with generalized weakness and a fall. On have several skin tears on the right arm which were repaired. Patient has large ascites and has been having diffuse abdominal pain. Diagnostic and therapeutic paracentesis performed with 2 L of yellowish clear fluid. Patient started on 2 g of ceftriaxone to cover SBP while results return. Patient received 1 L of lactated Ringer's. CT the head and C-spine negative for acute injury. CT chest and pelvis showed liver cirrhosis with large amount of ascites but no other acute findings. Laboratory studies significant for a 4 point drop in hemoglobin since April 2024. No melena or hematochezia. Platelets 120. INR 1.8. Potassium 3.3 which is been repleted lactic 2.9. Total bili 4.4 with AST of 77, ALT 32 alk-phos 128 consistent with liver cirrhosis. Albumin 2.6. Viral swabs negative. Alcohol level undetectable. Independent EKG interpretation: Rhythm [sinus], Rate [100, Stanley -[normal], TX -[normal], QRS [narrow], QTC [normal], T waves -[negative for concerning inversions], ST Segments - [Negative for concerning elevations] Final interpretations: Sinus tach. Patient will require admission. -DDX includes but is not limited to: SBP, acute liver failure, Sepsis, UTI,dehydration Vital Signs Vital Signs: Vital Signs Temperature 98.2 F 10/05/24 04:53 Pulse Rate 101 H 10/05/24 04:53 Respiratory Rate 14 10/05/24 04:53 Blood Pressure 96/56 L 10/05/24 04:53 Pulse Oximetry 95 10/05/24 04:53 Oxygen Delivery Room Air 10/05/24 04:53 Temperature 96.6 F L 10/05/24 14:00 Pulse Rate 101 H 10/05/24 14:00 Respiratory Rate 18 10/05/24 14:00 Blood Pressure 101/72 10/05/24 14:00 Pulse Oximetry 98 10/05/24 14:00 Oxygen Delivery Room Air 10/05/24 11:12 Lab Data 10/05/24 05:32 10/05/24 05:32 Labs: Lab Results 10/05/24 10/05/24 10/05/24 Range/Units 05:32 05:38 05:40 WBC 6.7 (4.5-10.0) K/mm3 RBC 2.67 L (4.6-6.20) M/mm3 Hgb 9.3 L D (14.0-18.0) g/dL Hct 28.7 L (42.0-52.0) % MCV 107.5 H (80-100) fl MCH 34.8 H (26-34) pg MCHC 32.4 (32-36) g/dl RDW 17.5 H (11.5-14.5) % Plt Count 120 L (150-375) k/mm3 MPV 9.6 (7.4-10.4) fl Immature Gran % (Auto) 0.7 H (0-0.5) % Neut % (Auto) 73.7 H (45.5-73.1) % Lymph % (Auto) 11.8 L (18.3-44.2) % Buchanan % (Auto) 12.5 H (2.6-8.5) % Eos % (Auto) 1.0 (0-4.4) % Baso % (Auto) 0.3 (0.2-1.2) % Lymph # (Auto) 0.79 L (0.9-3.2) K/mm3 Buchanan # (Auto) 0.8 H (0.1-0.6) K/mm3 Eos # (Auto) 0.1 (0-0.3) K/mm3 Baso # (Auto) 0.0 (0.0-0.1) K/mm3 Abs Immat Gran (auto) 0.05 H (0.00-0.031) K/mm3 Absolute Neuts (auto) 5.0 (1.3-6.7) K/mm3 Absolute Nucleated RBC 0.000 (0.0-0.012) K/mm3 Band Neutrophils % Not Reportable Nucleated RBC % 0.0 (0.0-0.2) % Platelet Estimate Slightly decreased (Adequate) Macrocytosis 1+ (NORMAL) Schistocytes None seen PT 21.3 H (11.1-14.7) Seconds INR 1.8 APTT 38.1 H (22.3-36.8) Seconds Sodium 131 L (137-145) mmol/L Potassium 3.3 L (3.4-5.0) mmol/L Chloride 100 (98-107) mmol/L Carbon Dioxide 24 (22-30) mmol/L Anion Gap 7 (4-12) mmol/L BUN 13 (9-20) mg/dL Creatinine 0.92 (0.7-1.3) mg/dL Estim Creat Clear Calc 78 ml/min Estimated GFR > 60 (59 - ) Glucose 108 (65-110) mg/dL POC Capillary Glucose 99 (65-105) mg/dl Lactic Acid 2.9 H (0.7-2.0) mmol/L Calcium 8.1 L (8.4-10.2) mg/dL Phosphorus 3.2 (2.5-4.5) mg/dL Magnesium 2.0 (1.6-2.3) mg/dL Total Bilirubin 5.4 H (0.2-1.3) mg/dL AST 77 H (17-59) U/L ALT 32 (6-50) U/L Alkaline Phosphatase 128 H (38-126) U/L Ammonia 42 H (9-30) umol/L Lactate Dehydrogenase (120-246) U/L Troponin I < 0.012 (0.000-0.034) ng/mL Total Protein 6.0 L (6.3-8.2) g/dL Albumin 2.6 L (3.5-5.1) g/dL Lipase 77 (23-300) U/L TSH (Reflex) 3.540 (0.465-4.68) uIU/mL Urine Color (Yellow) Urine Appearance (Clear) Urine pH (5.0-9.0) Ur Specific [place] (1.001-1.035) Urine Protein (Negative) mg/dL Urine Glucose (UA) (Negative) mg/dL Urine Ketones (Negative) mg/dL Ur Blood (Man) (Negative) Urine Nitrate (Negative) Urine Bilirubin (Negative) Urine Urobilinogen (<2.0) mg/dL Add Ur Microanalysis Leukocyte Esterase Rfl (Negative) CHINMAY/UL Urine RBC (0-2) /hpf Urine WBC (0-3) /hpf Ur Squamous Epith Cells (Few) /hpf Urine Bacteria /hpf Urine Casts Peritoneal Source Peritoneal Color (Colorless) Peritoneal Appearance (Clear) Peritoneal RBC (0-68884) /uL Periton Nuc Cells (0-500) /uL Periton Neutrophils (0-25) % Periton Lymphocytes % Peritoneal Monocytes % Periton Macrophages % Peritoneal Tot Protein Peritoneal Albumin Peritoneal LDH Peritoneal Glucose Peritoneal Amylase Urine Opiates Screen (Negative) Urine Methadone Screen (Negative) Ur Barbiturates Screen (Negative) Ur Phencyclidine Scrn (Negative) Ur Amphetamine Screen (Negative) U Benzodiazepines Scrn (Negative) Urine Cocaine Screen (Negative) U Cannabinoids Screen (Negative) Ethyl Alcohol < 10 (<10) mg/dL Influenza A (RT-PCR) Negative (Negative) Influenza B (RT-PCR) Negative (Negative) RSV (RT-PCR) Negative (Negative) SARS-CoV-2 RNA (RT-PCR) Negative (Negative) 10/05/24 10/05/24 10/05/24 Range/Units 07:14 07:42 08:05 WBC (4.5-10.0) K/mm3 RBC (4.6-6.20) M/mm3 Hgb (14.0-18.0) g/dL Hct (42.0-52.0) % MCV (80-100) fl MCH (26-34) pg MCHC (32-36) g/dl RDW (11.5-14.5) % Plt Count (150-375) k/mm3 MPV (7.4-10.4) fl Immature Gran % (Auto) (0-0.5) % Neut % (Auto) (45.5-73.1) % Lymph % (Auto) (18.3-44.2) % Buchanan % (Auto) (2.6-8.5) % Eos % (Auto) (0-4.4) % Baso % (Auto) (0.2-1.2) % Lymph # (Auto) (0.9-3.2) K/mm3 [place]anan # (Auto) (0.1-0.6) K/mm3 Eos # (Auto) (0-0.3) K/mm3 Baso # (Auto) (0.0-0.1) K/mm3 Abs Immat Gran (auto) (0.00-0.031) K/mm3 Absolute Neuts (auto) (1.3-6.7) K/mm3 Absolute Nucleated RBC (0.0-0.012) K/mm3 Band Neutrophils % Nucleated RBC % (0.0-0.2) % Platelet Estimate (Adequate) Macrocytosis (NORMAL) Schistocytes PT (11.1-14.7) Seconds INR APTT (22.3-36.8) Seconds Sodium (137-145) mmol/L Potassium (3.4-5.0) mmol/L Chloride (98-107) mmol/L Carbon Dioxide (22-30) mmol/L Anion Gap (4-12) mmol/L BUN (9-20) mg/dL Creatinine (0.7-1.3) mg/dL Estim Creat Clear Calc ml/min Estimated GFR (59 - ) Glucose (65-110) mg/dL POC Capillary Glucose (65-105) mg/dl Lactic Acid 1.7 (0.7-2.0) mmol/L Calcium (8.4-10.2) mg/dL Phosphorus (2.5-4.5) mg/dL Magnesium (1.6-2.3) mg/dL Total Bilirubin (0.2-1.3) mg/dL AST (17-59) U/L ALT (6-50) U/L Alkaline Phosphatase (38-126) U/L Ammonia (9-30) umol/L Lactate Dehydrogenase < 200 (120-246) U/L Troponin I < 0.012 (0.000-0.034) ng/mL Total Protein (6.3-8.2) g/dL Albumin (3.5-5.1) g/dL Lipase (23-300) U/L TSH (Reflex) (0.465-4.68) uIU/mL Urine Color Dark yellow (Yellow) Urine Appearance Clear (Clear) Urine pH 6.5 (5.0-9.0) Ur Specific [place] 1.037 H (1.001-1.035) Urine Protein Negative (Negative) mg/dL Urine Glucose (UA) Negative (Negative) mg/dL Urine Ketones Trace H (Negative) mg/dL Ur Blood (Man) Negative (Negative) Urine Nitrate Negative (Negative) Urine Bilirubin 1+ H (Negative) Urine Urobilinogen 2.0 H (<2.0) mg/dL Add Ur Microanalysis Reviewed Leukocyte Esterase Rfl 1+ H (Negative) CHINMAY/UL Urine RBC 6-10 H (0-2) /hpf Urine WBC 11-20 H (0-3) /hpf Ur Squamous Epith Cells Occasional (Few) /hpf Urine Bacteria 4+ H /hpf Urine Casts 6-10 Peritoneal Source Peritoneal fluid Peritoneal Color Yellow (Colorless) Peritoneal Appearance Clear (Clear) Peritoneal RBC < 2000 (0-03338) /uL Periton Nuc Cells 35 (0-500) /uL Periton Neutrophils 5 (0-25) % Periton Lymphocytes 26 % Peritoneal Monocytes 26 % Periton Macrophages 43 % Peritoneal Tot Protein Pending Peritoneal Albumin Pending Peritoneal LDH Pending Peritoneal Glucose Pending Peritoneal Amylase Pending Urine Opiates Screen Positive A (Negative) Urine Methadone Screen Negative (Negative) Ur Barbiturates Screen Negative (Negative) Ur Phencyclidine Scrn Negative (Negative) Ur Amphetamine Screen Negative (Negative) U Benzodiazepines Scrn Positive A (Negative) Urine Cocaine Screen Negative (Negative) U Cannabinoids Screen Negative (Negative) Ethyl Alcohol (<10) mg/dL Influenza A (RT-PCR) (Negative) Influenza B (RT-PCR) (Negative) RSV (RT-PCR) (Negative) SARS-CoV-2 RNA (RT-PCR) (Negative) ABG Data ABG results: 10/05/24 05:30 VBG pH 7.418 H* VBG pCO2 34.6 L VBG pO2 27.7 L VBG HCO3 21.8 L O2 Delivery Device Room air O2 Liters/Min Not Reportable FiO2 21 Discharge Plan Discharge Clinical Impression: Weakness, Cirrhosis of liver, Ascites Patient Disposition: Still a Patient Condition: Serious
[2024-10-05 05:37] LABS: Fractional Inspired Oxygen 21 %; HCO3 VBG 21.8 mEq/l (24.0-30.0); PCO2 VBG 34.6 mmHg (42.0-48.0); PO2 VBG 27.7 mmHg (35.0-45.0)
[2024-10-05 05:39] LABS: Device ROOM AIR; pH VBG 7.418 (7.300-7.400)
[2024-10-05 05:42] LABS: Glucose Point of Care 99 mg/dl (65-105)
[2024-10-05 05:45] LABS: Basophils Percent Auto 0.3 % (0.2-1.2); Eosinophils Absolute Auto 0.1 K/mm3 (0-0.3); Hematocrit 28.7 % (42.0-52.0); Hemoglobin 9.3 g/dL (14.0-18.0); Immature Granulocyte Absolute 0.05 K/mm3 (0.00-0.031); Immature Granulocyte Percent A 0.7 % (0-0.5); Lymphocytes Absolute Auto 0.79 K/mm3 (0.9-3.2); Lymphocytes Percent Auto 11.8 % (18.3-44.2); Mean Corpuscular HGB Conc 32.4 g/dl (32-36); Mean Corpuscular Hemoglobin 34.8 pg (26-34); Mean Corpuscular Volume 107.5 fl (80-100); Mean Platelet Volume 9.6 fl (7.4-10.4); Monocytes Absolute Auto 0.8 K/mm3 (0.1-0.6); Monocytes Percent Auto 12.5 % (2.6-8.5); Neutrophils Percent Auto 73.7 % (45.5-73.1); Platelet Count Result 120 k/mm3 (150-375); Red Blood Count 2.67 M/mm3 (4.6-6.20); Red Cell Distribution Width 17.5 % (11.5-14.5); White Blood Count 6.7 K/mm3 (4.5-10.0)
[2024-10-05] MEDS: LACTATED RINGERS 1,000 ML 999 ML IV CONT (05:51)
[2024-10-05 05:53] LABS: Ammonia 42 umol/L (9-30)
[2024-10-05] MEDS: HYDROmorphone HCL INJ (*CRX) 2 MG/ML VIAL 0.5 MG IV PUSH (05:55)
--- OUTSIDE RECORDS SUMMARY | 2024-10-05 05:55 | XMS_ITS | Clinical Summary ---
Author Organization [facility] [employer] Address [address] [place] [address] Care Team Providers Care Cabin Outfitter Name Role Phone Aldair Pisano MD Primary Care Provider [phone] Source Comments [facility],non-owned Affiliates and Associated Physician Practices is amultiple site organization consisting of ambulatory clinics and hospital sitesin [place], [place], [place] and [place]. This disclosure is being madepursuant to the Care Everywhere program and may not contain all information available regarding this patient. Last updated 18.[facility] [employer] Allergies No known active allergies Medications * Be aware that medications may not be up to date on this document. Always verify current medications with the patient. allopurinol (ZYLOPRIM) 300 MG tablet allopurinol 300 mg tablet TAKE 1 TABLET BY MOUTH EVERY DAY Active ALPRAZolam (XANAX) 0.5 MG tablet alprazolam 0.5 mg tablet TAKE 1 TABLET BY MOUTH FOUR TIMES DAILY NEEDED Active baclofen (LIORESAL) 10 MG tablet TK 1 T PO TID PRN 0 Active cefdinir (OMNICEF) 300 MG capsule cefdinir 300 mg capsule TAKE 1 CAPSULE BY MOUTH EVERY 12 HOURS Active cyclobenzaprin e (FLEXERIL) 10 MG tablet TK 1 T PO TID 0 Active COLCRYS 0.6 MG tablet TK 1 T PO UTD 0 Active ergocalciferol (DRISDOL) 1.25 MG (04591 UT) capsule Vitamin D2 1,250 mcg (50,000 unit) capsule Take 1 capsule every week by oral route. Active famotidine (PEPCID) 20 MG tablet famotidine 20 mg tablet TAKE 1 TABLET BY MOUTH TWICE DAILY Active folic acid (FOLVITE) 1 MG tablet folic acid 1 mg tablet TAKE 1 TABLET BY MOUTH DAILY Active fenofibrate (LOFIBRA) 160 MG tablet TK 1 T PO QD HS 0 Active furosemide (LASIX) 40 MG tablet Take 40 mg by mouth once daily 1 Active HYDROcodone-ac etaminophen (NORCO) 7.5-325 MG tablet hydrocodone 7.5 mg-acetaminophen 325 mg tablet TAKE 1 TABLET BY MOUTH EVERY 6 HOURS Active losartan (COZAAR) 100 MG tablet losartan 100 mg tablet TAKE 1 TABLET BY MOUTH EVERY DAY Active MAGNESIUM-OXID E 400 (241.3 Mg) MG tablet Take 400 mg by mouth every morning 1 Active naproxen (NAPROSYN) 500 MG tablet TK 1 T PO TID PRN 0 Active spironolactone (ALDACTONE) 50 MG tablet spironolactone 50 mg tablet TAKE 2 TABLETS BY MOUTH EVERY DAY Active tamsulosin (FLOMAX) 0.4 MG capsule TK 1 C PO QD 0 Active Active Problems Problem Noted Date Diagnosed Date Pancreatic mass 07/30/2020 Social History Tobacco Use Types Packs/Day Years Used Date Smoking Tobacco: Every Day Smokeless Tobacco: Never Sex and Gender Information Value Date Recorded Sex Assigned at Not on file Legal Sex Male 7:01 PM [employer]LE [employer] Gender Identity Not on file Sexual Orientation Not on file Last Filed Vital Signs Vital Sign Reading Time Taken Comments Blood Pressure 112/76 07/30/2020 12:59 PM [employer]LE TE[employer] Pulse 103 07/30/2020 12:59 PM [employer]OTTLE TE[employer] Temperature 36.7 C (98 F) 07/30/2020 12:59 PM [employer]OTTLE TE[employer] Respiratory Rate - - Oxygen Saturation 100% 07/30/2020 12:59 PM [employer]OTTLE TE[employer] Inhaled Oxygen Concentration - - Weight 68.5 kg (151 lb) 07/30/2020 12:59 PM [employer]OTTLE TE[employer] Height 170.2 cm (5' 7 ) 07/30/2020 12:59 PM [employer]OTTLE TE[employer] Body Mass Index 23.65 07/30/2020 12:59 PM [employer]OTTLE TE[employer] Plan of Treatment Health Maintenance Due Date Last Done Comments COLOGUARD (AGES 45-75) - COL ON CA SCREENING 1959 COLON MONITORING 1959 COLONOSCOPY - COLON CA SCREENING 1959 CT COLONOGRAPHY - COLON CA SCREENING 1959 Colorectal Cancer Screening 1959 FIT - COLON CA SCREENING 1959 FLEX SIG - COLON CA SCREENING 1959 LIPID TESTING 1959 HIV SCREENING 1974 HEPATITIS C SCREENING 02/21/1977 DTAP/TDAP/TD VACCINES (1 - Tdap) 1978 PNEUMOCOCCAL VACCINE 50+ (1 of 1 - PCV) 2009 ZOSTER VACCINE (1 of 2) 2009 COVID-19 VACCINE (1 - 2023-2 5 season) 2024 AAA SCREENING 02/27/2024 DEPRESSION SCREENING 05/25/2024 INFLUENZA VACCINE (Season Ended) 2025 03/01/20 20 Respiratory Syncytial Virus (RSV) Vaccine Pt: or over 60 yrs (1 - 1-dose 75+ series) 2034 HEPATITIS B VACCINE Aged Out No longe r eligible based on patient's age to complete this topic HIB VACCINE Aged Out No longer eligi ble based on patient's age to complete this topic HPV VACCINE Aged Out No longer eligi ble based on patient's age to complete this topic MENINGOCOCCAL (Group B) VACC INE SHARED DECISION-MAKING Aged Out No longer eligibl e based on patient's age to complete this topic MENINGOCOCCAL GROUPS A/C/Y/W VACCINE Aged Out No longer eligible b ased on patient's age to complete this topic Insurance [address] [place] [address] MEDICARE MEDICAID - OUT OF STATE MEDICARE MEDICAID - [place] Care Teams Cabin Outfitter Relationship Specialty Start Date End Date Aldair Pisano MD [address] [place] [address] PCP - General 11/17/11
--- OUTSIDE RECORDS SUMMARY | 2024-10-05 05:55 | XMS_ITS | Data Portability ---
Author Organization [facility] Address [address] [place] [address] Care Team Providers Care Real Estate Underwriter Name Role Phone СВЕТЛАНА CHAIRA Primary Care Provider Assessment Encounter Date Assessment Date Assessment LastModified by Organization Details LastModified Time 08/20/2020 08/20/2020 got coronavirus shot today. [email or web address] Not available 08/20/2020 14:13:53 11/29/2020 11/29/2020 longstanding problems with trouble sleeping. cramps in neck and shins and feet if not being active or if he does too much and then gets really tired. Hands swell and ache. leg cramps at night. BP 105/78. Not available 11/29/2020 15:25:18 Plan of Treatment Reminders Order Date Submit Date Provider Last Modified By Organization Details Last Modified Time Details Appointments None recorded. Lab None recorded. Referral psychiatri st referral 2020 021 [facility], [address] [place] [address] [address], [address], 16:07:27 Procedures None recorded. Surgeries None recorded. Imaging None recorded. Medication Orders Vitamin D2 1,250 mcg (50,000 unit) capsule 2021 022 [facility] #03435, [address] [facility], [place], [place], [id number], 15:32:35 allopurino l 300 mg tablet 2021 022 [facility] #75860, [address], [place], [place], [id number], 15:32:29 furosemide 20 mg tablet 2021 [facility] #17190, [address], [place], [place], [id number], 10:49:39 furosemide 40 mg tablet 2021 [facility] #34957, [address], [place], [place], [id number], 15:32:26 magnesium oxide 400 mg (241.3 mg magnesium) tablet 2021 [facility] #56506, [address] , [place], [place], [id number], 15:32:37 spironolac tone 50 mg tablet 2021 [facility] #11317, [address] , [place], [place], [id number], 15:32:39 alprazolam 0.5 mg tablet 2021 [facility] #20239, [address] , [place], [place], [id number], 15:34:14 allopurino l 300 mg tablet 2020 021 [facility] #13628, [address] , [place], [place], [id number], 14:48:05 hydrocodon e 7.5 mg-acetami nophen 325 mg tablet 2020 021 [facility] #49993, [address] [facility], [place], [place], [id number], 11:36:29 furosemide 20 mg tablet 2020 [facility] #19065, [address] [facility], [place], [place], [id number], 2 10:49:39 magnesium oxide 400 mg (241.3 mg magnesium) tablet 2020 [facility] #09400, [address] [facility], [place], [place], [id number], 14:48:10 spironolac tone 50 mg tablet 2020 [facility] #25049, [address] [facility], [place], [place], [id number], 14:59:47 alprazolam 0.5 mg tablet 2020 [facility] #97598, [address] [facility], [place], [place], [id number], 11:36:30 Viagra 100 mg tablet 2020 [facility] #89936, [address] [facility], [place], [place], [id number], 14:56:41 Vitamin D2 1,250 mcg (50,000 unit) capsule 2020 [facility] #22310, [address] [facility], [place], [place], [id number], 14:48:20 ropinirole 1 mg tablet 2020 [facility] #20387, [address] [facility], [place], [place], [id number], 16:10:10 mupirocin 2 % topical ointment 2020 021 [facility] #48028, [address] , [place], [place], [id number], 15:23:34 oxycodone 5 mg tablet 2020 021 [facility] #20612, [address] [facility], [place], [place], [id number], 15:22:49 alprazolam 0.5 mg tablet 2020 021 [facility] #72935, [address] [facility], [place], [place], [id number], 14:31:48 Vitamin D2 1,250 mcg (50,000 unit) capsule 2020 021 [email or web address] #47807, [address] , [place], [place], [id number], 23:21:24 furosemide 40 mg tablet 2020 021 [facility] #90566, [address] [facility], [place], [place], [id number], 14:24:36 Patient TargetsNo targets recorded. Patient Instructions Encounter Date Encounter Id Patient Instructions Last Modified By Organization Details Last Modified Time 11/29/2020 [id number] leg cramps [email or web address] Not available 15:22:26 back care and preventing injuries: care instructions [email or web address] Not available 11/29/2020 15:22:26 03/11/2021 [id number] gout: care instructions Not available 03/11/2021 14:47:55 back care and preventing injuries: care instructions Not available 03/11/2021 14:52:53 cirrhosis: care instructions Not available 03/11/2021 14:47:55 liver disease diet: care instructions Not available 03/11/2021 14:47:54 learning about high blood pressure Not available 03/11/2021 14:47:55 06/03/2021 [id number] gout: care instructions Not available 06/03/2021 15:32:14 back care and preventing injuries: care instructions Not available 06/03/2021 15:32:13 cirrhosis: care instructions Not available 06/03/2021 15:32:13 liver disease diet: care instructions Not available 06/03/2021 15:32:13 learning about high blood pressure Not available 06/03/2021 15:32:14 Reason for Referral Psychiatrist Referral for An xiety Referring Physician: Rell Michaels, Family Medicine, Encounter Date: 03/11/2021 Problems Name Problem SNOMED Code Status Onset Date Resolution Date Notes Provider Name and Address Organization Details Recorded Time Gastroesophag eal reflux disease 745227788 Active 2017 Not Available [facility] 1 11:34:50 Anxiety 28931366 Active 2017 Not Available [facility] 1 11:34:50 Hypertensive disorder 13298605 Active 2017 Not Available [facility] 1 11:34:50 Hypercholeste rolemia 26552852 Active 2017 Not Available [facility] 1 11:34:50 Seizure disorder 175529594 Active 2017 Not Available [facility] 1 11:34:50 Malignant neoplastic disease 946709995 Active 2020 Not Available [facility] 1 11:34:50 Problem Notes None recorded. Procedures Surgical History Date Name Laterality Status Provider Name and Address Organization Details Recorded Time complete repair of rotator cuff completed TOMAS Humphreys [facility] 02/25/2018 12:17:14 hemorrhoidectomy completed TOMAS Khoury [facility] 02/25/2018 12:17:29 Unlisted px foot/toes completed OTMAS Humphreys [facility] 02/25/2018 12:17:51 Imaging Results None recorded. Procedure Notes None recorded. Medical Equipment None Reported. Allergies No known drug allergies Medications Name Sig Start Date Stop Date Status Note LastModified by Organization Details LastModified Time cyclobenzap rine 10 mg tablet Take 1 tablet 3 times a day by oral route. 05/30 completed Not Available Not Available Not Available furosemide 40 mg tablet TAKE 1 TABLET BY MOUTH EVERY DAY active Not Available Not Available No t Available ropinirole 1 mg tablet active Not Available Not Available Not Available alprazolam 1 mg tablet 02/25 completed Not Available Not Available Not Available levetiracet am 500 mg tablet 02/25 completed Not Available Not Available Not Available hydrocodone 5 mg-acetamin ophen 325 mg tablet Take 1 tablet 3 times a day by oral route. 05/30 completed Not Available Not Available Not Available sulfamethox azole 800 mg-trimetho prim 160 mg tablet Take 1 tablet every 12 hours by oral route. 06/22 completed Not Available Not Available Not Available tramadol 50 mg tablet Take 1 tablet 4 times a day by oral route. 08/17 completed Not Available Not Available Not Available sildenafil 100 mg tablet 2020 active Not Available Not Available Not Avai lable alprazolam 0.5 mg tablet TAKE 1 TABLET BY MOUTH FOUR TIMES DAILY NEEDED FOR ANXIETY active Not Available Not Available No t Available famotidine 20 mg tablet TAKE 1 TABLET BY MOUTH TWICE DAILY active Not Available Not Available No t Available magnesium oxide 400 mg (241.3 mg magnesium) tablet TAKE 1 TABLET BY MOUTH EVERY MORNING active Not Available Not Available No t Available tamsulosin 0.4 mg capsule TAKE 1 CAPSULE BY MOUTH EVERY DAY 2021 active Not Available Not Available Not Avai lable baclofen 10 mg tablet Take 1 tablet 3 times a day by oral route as needed. 05/30 completed Not Available Not Available Not Available hydrocodone 7.5 mg-acetamin ophen 325 mg tablet TAKE 1 TABLET BY MOUTH DAILY NEEDED FOR PAIN active Not Available Not Available No t Available folic acid 1 mg tablet TAKE 1 TABLET BY MOUTH DAILY active Not Available Not Available No t Available allopurinol 300 mg tablet TAKE 1 TABLET BY MOUTH EVERY DAY active Not Available Not Available No t Available mupirocin 2 % topical ointment APPLY SMALL AMOUNT TOPICALLY TO THE AFFECTED AREA THREE TIMES DAILY active Not Available Not Available No t Available furosemide 20 mg tablet TAKE 1 TABLET BY MOUTH EVERY DAY active Not Available Not Available No t Available ergocalcife rol (vitamin D2) 1,250 mcg (50,000 unit) capsule TAKE 1 CAPSULE BY MOUTH EVERY WEEK active Not Available Not Available No t Available cefdinir 300 mg capsule TAKE 1 CAPSULE BY MOUTH EVERY 12 HOURS active Not Available Not Available No t Available losartan 100 mg tablet TAKE 1 TABLET BY MOUTH EVERY DAY 2021 active Not Available Not Available Not Avai lable naproxen 500 mg tablet TAKE 1 TABLET BY MOUTH THREE TIMES DAILY NEEDED 05/30 completed Not Available Not Available Not Available spironolact one 50 mg tablet TAKE 2 TABLETS BY MOUTH EVERY DAY active Not Available Not Available No t Available probenecid 500 mg tablet Take 1 tablet every day by oral route. 12/15 completed Not Available Not Available Not Available oxycodone 5 mg tablet TAKE 1 TABLET BY MOUTH THREE TIMES DAILY NEEDED active Not Available Not Available No t Available fenofibrate 160 mg tablet Take 1 tablet every day by oral route at bedtime. 05/30 completed Not Available Not Available Not Available Colcrys 0.6 mg tablet Take 1 tablet by oral route. 05/30 completed Not Available Not Available Not Available Vitals Date Recorded Body height Body mass index (BMI) Body weight Provider Name and Address Organization Details Last Updated DateTime 08/20/2020 170.18 cm 23.5 kg/m2 75038.86 g Shama Marquez MA [facility] 08/20/2020 14:10:47 Date Recorded Body height Provider Name an d Address Organization Details Last Updated DateTime 03/11/2021 170.18 cm Shirley Mehta MA [facility] 2020 12:59:46 Date Recorded Body height Provider Name an d Address Organization Details Last Updated DateTime 06/03/2021 170.18 cm Kenneth Marroquin MA [facility] 022 14:25:47 Social History Question Answer Notes LastModified by Organizat ion Details LastModified Time Tobacco Smoking Status Current Some Day Smoker Pt smokes 5 to 6 cigs a day. Kenneth Marroquin MA null, [facility] 06/03/2021 14:33:04 Do You Have An Advance Directive? No Information not available 02/25/2018 Are You Blind Or Do You Have Difficulty Seeing? No Information not available 09/10/2020 What Is Your Level Of Caffeine Consumption? None Information not available 09/10/2020 How Much Tobacco Do You Chew? None Information not available 08/18/2019 In The 14 Days Before Symptom Onset, Have You Had Close Contact With A Laboratory-confir med COVID-19 While That Case Was Ill? No Information not available 09/10/2020 In The 14 Days Before Symptom Onset, Have You Had Close Contact With A Person Who Is Under Investigation For COVID-19 While That Person Was Ill? No Information not available 09/10/2020 Have You Been To An Area Known To Be High Risk For COVID-19? No Information not available 08/20/2020 Are You Deaf Or Do You Have Serious Difficulty Hearing? No Information not available 09/10/2020 What Type Of Diet Are You Following? REGULAR Information not available 02/25/2018 Which Illicit Or Recreational Drugs Have You Used? None Information not available 05/30/2020 Education 12 Information no t available 02/25/2018 Swimming/diving No Informati on not available 02/25/2018 Are There Any Guns Present In Your Home? No Information not available 02/25/2018 Hard Of Hearing Or Deaf In One Or Both Ears? No Information not available 02/25/2018 Legally Blind In One Or Both Eyes? No Information no t available 02/25/2018 Live Alone Or With Others? With Others Information not available 02/25/2018 What Was The Date Of Your Most Recent Tobacco Screening? 06/03/2021 Information not available 06/03/2021 How Many Children Do You Have? 0 Information not available 02/25/2018 What Is Your Current Pack Years? 10-packye ars Information not available 07/11/2020 Do You Use Protection During Sex? No Information not available 02/25/2018 What Is Your Relationship Status? Information not available 09/10/2020 Do You Use Your Seat Belt Or Car Seat Routinely? Yes Information not available 09/10/2020 Seat Belts Used Routinely Yes Information not available 02/25/2018 Are You Sexually Active? No Information not available 02/25/2018 Smoke Alarm In Home Yes Information not available 02/25/2018 Do You Have Smoke And Carbon Monoxide Detectors In Your Home? Yes Information not available 08/20/2020 At What Age Did You Start Smoking Tobacco? 12 Information not available 02/25/2018 Are You Passively Exposed To Smoke? Yes Information no t available 02/25/2018 How Much Tobacco Do You Smoke? 0.5 PPD 3 Drags Off Of 1 And Then He Puts It Out And Is Down 32 1/2 Days He Will Smoke 1 Pack Information not available 05/30/2020 General Stress Level High Information not available 04/06/2020 Do You Use Sunscreen Routinely? No Information not available 02/25/2018 Has Tobacco Cessation Counseling Been Provided? Yes [email or web address] Information not available 10/31/2018 On What Date Was Tobacco Cessation Counseling Provided? 03/11/2021 Information not available 03/11/2021 How Many Years Have You Smoked Tobacco? 45 Information not available 02/25/2018 Sex: Unknown Functional Status Question Answer Note LastModified by Organizat ion Details LastModified Time Do you use any illicit or recreational drugs? No Information not available 07/11/2020 Do you or have you ever used any other forms of tobacco or nicotine? No Information not available 07/11/2020 What is your level of alcohol consumption? Occasional Information not available 06/03/2021 Do you or have you ever used smokeless tobacco? Never used smokeless tobacco Information not available 08/18/2019 Are you currently employed? No Information not available 02/25/2018 Are you able to care for yourself? Yes Information not available 02/25/2018 What is your occupation? unemployed Information not available 05/30/2020 Do you or have you ever used e-cigarettes or vape? Never used electronic cigarettes Information not available 08/18/2019 What is your exercise level? Occasional Information not available 02/25/2018 Mental Status Question Answer Note LastModified by Organization D etails LastModified Time Do you feel stressed (tense, restless, nervous, or anxious, or unable to sleep at night)? [id number] Information not available 09/10/2020 Family History Relationship Description Onset Age of this Age Resolved Age Notes LastModified by Organization Details LastModified Time Mother Diabetes mellitus ksykesma Not available 2017 12:12:31 Mother Hypertensive disorder ksykesma Not available 2017 12:12:43 Mother Heart disease ksykesma Not available 2017 12:12:54 Mother Hypercholest erolemia ksykesma Not available 2017 12:13:02 Brother Cerebrovascu lar accident ksykespa Not available 08/2017 12:13:28 Medical History Condition Response Coronary Artery Disease N Other N High Blood Pressure Y Atrial Fibrillation N Thyroid Problems N Kidney or Bladder Problems N GI Problems N Depression N COPD N Blood Clots N Skin Problems Y Eating Disorder N Anemia N Heart Attack ([place]) N Anxiety Disorder Y Diabetes N Muscle, Joint, or Bone Problems Y Seizures/Epilepsy Y Acid Reflux (GERD) Y Cancer N Stroke N Asthma N Allergies N ADHD N Substance Abuse N High Cholesterol Y Hepatitis N Liver Disease N Schizophrenia N Headaches N Heart Failure N Osteoporosis N Immunizations Vaccine Type Date Status Note Provider Nam e and Address Organization Details Recorded Time COVID-19, mRNA, LNP-S, PF, 100 mcg/0.5mL dose or 50 mcg/0.25mL dose 1 completed TOMAS [place], [place] - [facility] 09/18/2020 12:38:27 Influenza, split virus, quadrivalent, preservative 0 completed TOMAS Garza, [place] - [facility] 03/01/2020 12:53:28 Past Encounters Encounter ID Performer Location Encounter Start Date Encounter Closed Date Diagnosis/Indication Diagnosis SNOMED-CT Code Diagnosis ICD10 Code Diagnosis Note [id number] Chiara Holbrook MD [facility] [address] [place] [address] 02/25/2018 11:48:35 2018 16:28:45 Musculoskeletal pain 494343252 M79.10 right shoulder, back, right knee, left knee Panic attack 559229691 F 41.0 Essential hypertension 36628505 I10 Hyperlipidemia 30069730 E78.5 Gout 70465829 M10.9 Standardiz ed adult depression screening tool completed 5489613313 47198 Z13.89 mild depression ; will monitor [id number] Chiara Holbrook MD [facility] [address] [place] [address] 06/22/2018 10:47:12 06/24/2018 09:17:41 Acute low back pain 701526926 M54.5 Pain radia ting to right shoulder 445934394 M25.511 Pain in right knee 55835 04054 08937 M25.561 Screening for malignant neoplasm of colon 706726318 Z12.11 Multiple a ctinic keratoses 237375232 L57.0 On examina tion - Right cataract present 997097087 H26.9 Panic attack 338619776 F 41.0 Standardiz ed adult depression screening tool completed 7845445689 61905 Z13.89 mild depression ; will monitor [id number] Chiara Holbrook MD [facility] [address] [place] [address] 10/25/2018 14:23:04 11/01/2018 09:11:50 Screening for malignant neoplasm of colon 378464996 Z12.11 Acute low back pain 2788 01576 M54.5 Panic attack 375116825 F 41.0 Essential hypertension 34560629 I10 Infection of skin 100562 000 L08.9 Hyperlipidemia 82695903 E78.5 Musculoskeletal pain 279 921550 M79.10 right shoulder, back, right knee, left knee Hyperuricemia 84725718 E 79.0 Multiple a ctinic keratoses 146469898 L57.[address] Payton-- Cataract of right eye 12 53392084 3815617 H26.9 [id number] Chiara Holbrook MD [facility] [address] [place] [address] 03/29/2019 14:55:02 04/04/2019 14:32:17 Multiple actinic keratoses 510695006 L57.0 Acute low back pain 2788 06442 M54.5 Cataract of right eye 12 03792540 0497372 H26.9 Panic attack 118201826 F 41.0 [id number] Chiara Holbrook MD [facility] [address] [place] [address] 08/18/2019 09:10:21 08/19/2019 11:07:41 Acute low back pain 883720289 M54.5 Cataract of right eye 12 46188808 4664730 H26.9 Essential hypertension 35218859 I10 Hyperuricemia 75089885 E 79.0 Panic attack 940755885 F 41.0 [id number] Chiara Holbrook MD [facility] [address] [place] [address] 12/16/2019 09:36:17 12/19/2019 10:04:46 Hyperuricemia 62016394 E79.0 avoid large amounts of organ meats, such as liver or kidneys. Panic attack 304564235 F 41.0 Patient has panic attacks occasional ly and it can be pretty miserable for him. Hyperlipidemia 35658993 E78.5 discussed low fat, low carb diet, and encouraged exercise. There is a swimming pool in their complex, and I encouraged him and his to go there on a day it wasn't very busy so he can swim a little and relax. Exercise should improve the good HDL cholestero l. Essential hypertension 16513481 I10 Patient advised to limit salt and caffeine intake to maintain good blood pressure. Gout 93221904 M10.9 naproxen will also help with pain. Vitamin D deficiency 347 15134 E55.9 Spasm 23549790 R25.2 Chronic low back pain 27 7189010 M54.5 exercise and gentle range of motion may help. [id number] Chiara Holbrook MD [facility] [address] [facility] [place] [address] 02/15/2020 16:16:31 02/20/2020 10:44:40 Abdominal pain 42626400 R10.9 upset stomach after drinking vodka. Bloating after drinking beer and eating fatty foods. Fell hard on his abdomen when he tripped. Patient advised to stop drinking alcohol and to try to eat more lean meat, vegetables , fruit, and whole grains. Chronic low back pain 27 3526006 M54.5 exercise and gentle range of motion may help. 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 Marie recommende d seeing a doctor in [place] who specialize s in hepatobili dominguez surgery. Dr. Ash at [facility] will be consulted. I personally called and tried to urge them to see Mr. Scales for further evaluation . (Mihir is said lennie according to the securities clerk) Ascites du e to alcoholic cirrhosis [id number] 587639 K70.31 patient advised to abstain from alcohol. Cholelithi asis without obstruction 28639736 K80.20 If patient has surgery the surgeon may wish to remove the gall bladder also. [id number] Chiara Holbrook MD [facility] [address] [place] [address] 04/18/2020 15:26:00 04/23/2020 06:01:40 Retention of urine 416942600 R33.9 Mass of pancreas 3193729 00 K86.89 will try to get patient connected with the hepatobili dominguez surgeon, but transporta tion may be an issue. Patient advised to go to the emergency room if getting worse before his appointmen t can be scheduled. Ascites du e to alcoholic cirrhosis 0230594539 954478 K70.31 patient advised to continue to abstain from alcohol. He elevates his feet and limits sodium intake, but I am hesitant to use diuretics due to lower outflow obstructio n. [id number] Chiara Holbrook MD [facility] [address] [place] [address] 05/30/2020 08:56:04 06/04/2020 09:07:50 Hyperuricemia 29100490 E79.0 avoid large amounts of organ meats, such as liver or kidneys. Essential hypertension 95058896 I10 Patient advised to limit salt and caffeine intake to maintain good blood pressure. Vitamin D deficiency 347 20194 E55.9 Anxiety 06025321 F41.9 Cirrhosis of liver K74.60 [id number] Chiara Holbrook MD [facility] [address] [place] [address] 06/28/2020 08:05:26 07/02/2020 09:59:31 Edema 467029739 R60.9 Visual impairment 353023 003 H54.7 Allergic rhinitis 484630 04 J30.9 nasal congestion off and on from allergies. Will avoid antihistam marly due to risk of swelling up the prostate. [id number] Chiara Holbrook MD [facility] [address] [place] [address] 07/11/2020 07:53:55 07/17/2020 17:56:05 Cirrhosis of liver 24462227 K74.60 [id number] Chiara Holbrook MD [facility] [address] [place] [address] 08/20/2020 08:07:22 08/21/2020 06:35:48 Cirrhosis of liver 12432849 K74.60 Vitamin D deficiency 347 55353 E55.9 Neoplasm o f uncertain behavior of head of pancreas 97221307 D37.8 [id number] Chiara Holbrook MD [facility] [address] [facility] [place] [address] 09/10/2020 08:17:29 09/18/2020 08:45:22 Hepatic failure 44532960 K72.90 ascites, cirrhosis; possible pancreatic cancer. He gets confused if he eats a large amount of protein. Anxiety 62927751 F41.9 anxiety should be listed here; situationa l due to potentiall y terminal illness. pt denies suicidal or homicidal ideation. [id number] Chiara Holbrook MD [facility] [address] [place] [address] 11/29/2020 09:02:39 12/17/2020 09:27:55 Chronic low back pain [id number] M54.5 exercise and gentle range of motion may help. Cramp in lower limb [id number] R25.2 Low back pain [id number] M54.5 Abrasion [id number] T14.8 XXA [id number] Rell Michaels MD [facility] [address] [place] [address] 03/11/2021 10:25:15 03/12/2021 10:10:40 Essential hypertension [id number] I10 hold meds.. check out-patien t.. Anxiety [id number] F41.9 stop .... refer... Cirrhosis of liver 007 K74.60 seeing GI Gout [id number] M10.9 meds and follow up... Hyperuricemia 15515396 E 79.0 avoid large amounts of organ meats, such as liver or kidneys. Vitamin D deficiency 347 32463 E55.9 meds and follow up... Low back pain [id number] M54.50 refill an follow up x-rays... Primary er ectile dysfunction [id number] N52.9 meds and follow up... [id number] Rell Michaels MD [facility] [address] [place] [address] 06/03/2021 09:00:19 06/05/2021 11:01:20 Essential hypertension [id number] I10 hold meds.. check out-patien t.. Anxiety 69393993 F41.9 stop .... refer... Cirrhosis of liver 007 K74.60 seeing GI Gout 80606524 M10.9 meds and follow up... Hyperuricemia 37110916 E 79.0 avoid large amounts of organ meats, such as liver or kidneys. Vitamin D deficiency 347 08102 E55.9 meds and follow up... Low back pain [id number] M54.50 refill an follow up x-rays... Primary er ectile dysfunction 161376854 N52.9 meds and follow up... Health Concerns Section Related Observation LastModified by Organization Detai ls LastModified Time None Recorded Concern Status LastModified by Organization Details LastModified Time None Recorded Advance Directives Directive N: Payers Encounter Date Sequence Insurance Name Policy Number Policy Rod Covered Member ID Rod Member ID Guarantor Name 08/20/2020 1 [place] Lloyd Scales [id number] Lloyd Scales 08/20/2020 2 [place] WHEN [place] OR MEDICARE REPLACEMENT PRIMARY) Rebel Scales [id number] Lloyd Scales 09/10/2020 [place] Lloyd Scales [id number] Lloyd Scales 09/10/2020 2 [place]PLACEMENT PRIMARY) Rebel Scales [id number] Lloyd Scales 11/29/2020 1 [place] Lloyd Scales [id number] Lloyd Scales 11/29/2020 2 [place] MED[place] REPLACEMENT PRIMARY) Rebel Scales [id number] Lloyd Scales 03/11/2021 2 [place] OR MEDICARE REPLACEMENT PRIMARY) Rebel Scales [id number] Lloyd Scales 03/11/2021 1 [employer] - PRIME (MEDICARE REPLACEMENT/AD VANTAGE - HMO) Lloyd Scales [id number] Lloyd Scales 06/03/2021 1 [employer] BETTER HEALTH - PREMIER PLAN - DUAL (MEDICARE - MEDICAID REPLACEMENT HMO) Lloyd Scales [id number] Lloyd Scales Notes Date Note Type Note Provider Name and Address Organization Details Recorded Time 08/20/2020 text/html Patient has cirrhosis of the liver; he also has a mass of the head of the pancreas which DR. Ash wishes to biopsy. He has been hospitalized at [place] with paracentesis of ascitic fluid. Chiara Holbrook MD Attn: Accounting, [address] [place], [address], [place] [facility] 08/20/2020 23:28:12 09/10/2020 text/html Patient complain s of lower back pain for the past 2 weeks. has lost weight down to 140 pounds. Muscle mass has gotten less. Legs are not swollen. Chest muscles are weak. has an appt with [facility] in about 10 days. Feels unsteady on his feet and likely to fall. wakes up in the night and has trouble falling back to sleep. Naps during the day. Following a low salt low protein diet. Says he has not been drinking and doubts he will ever drink again. cutting down to 1/5 ppd. Chiara Holbrook MD Attn: Accounting, [address] [place], [address], [place] [facility] 09/16/2020 15:02:23 03/11/2021 text/html low back pain off/on for a year... also was alcoholic in past an has pancreatic deficiency... drinks on occasion still... smoker... BP meds was stopped because his blod pressure has improved... Rell Michaels MD Attn: Accounting, [address] [place], [address], [place] [facility] 03/11/2021 14:59:50 06/03/2021 text/html no fevers/chills/SOB. .. stress level is stable most f the time, but mind races at night some... Rell Michaels MD Attn: Accounting, [address] [place], [address], [place] [facility] 06/03/2021 15:32:36
--- OUTSIDE RECORDS SUMMARY | 2024-10-05 05:55 | XMS_ITS | Clinical Summary ---
Author Organization [facility] Address [address] [place] [address] Care Team Providers Care Computer Help Desk Representative Name Role Phone Ramirez Renae MD Primary Care Provider [phone] Allergies No known active allergies Medications spironolactone (ALDACTONE) 50 MG tablet Take 50 mg by mouth 2 (two) times daily. Active tamsulosin (FLOMAX) 0.4 MG Cap Take 0.4 mg by mouth daily. Active allopurinol (ZYLOPRIM) 300 MG tablet Take 300 mg by mouth daily. Active furosemide (LASIX) 40 MG tablet Take 40 mg by mouth daily. Active famotidine (PEPCID) 20 MG tablet Take 20 mg by mouth 2 (two) times daily. Active magnesium oxide (MAG-OX) 400 (240 Mg) MG tablet Take 400 mg by mouth daily. Active HYDROcodone-haim taminophen (NORCO) 7.5-325 MG tablet Take 1 tablet by mouth every 6 (six) hours as needed for Pain. Active ALPRAZolam (XANAX) 0.5 MG tablet Take 0.5 mg by mouth 4 (four) times daily as needed. FOR ANXIETY 02/10/2022 Active Social History Tobacco Use Types Packs/Day Years Used Date Smoking Tobacco: Every Day Cigarettes Smokeless Tobacco: Never Snuff Alcohol Use Standard Drinks/Week Comments Yes 0 (1 standard drink = 0.6 oz pur e alcohol) occassionally Sex and Gender Information Value Date Recorded Sex Assigned at Not on file Legal Sex Male 8:21 PM CDT Gender Identity Not on file Sexual Orientation Not on file Last Filed Vital Signs Vital Sign Reading Time Taken Comments Blood Pressure 140/80 02/17/2022 9:51 AM CDT Pulse 74 02/17/2022 9:51 AM CDT Temperature 37.3 C (99.1 F) 02/17/2022 8:33 AM CDT Respiratory Rate 18 02/17/2022 8:33 AM CDT Oxygen Saturation 98% 02/17/2022 9:51 AM CDT Inhaled Oxygen Concentration - - Weight 74.8 kg (165 lb) 02/07/2022 2:38 PM CDT Height 172.7 cm (5' 8 ) 02/07/2022 2:38 PM CDT Body Mass Index 25.09 02/07/2022 2:38 PM CDT Plan of Treatment Health Maintenance Due Date Last Done Comments Colorectal Cancer Screening Colonoscopy (10 Years) 1959 Hepatitis C 1977 DTaP, Tdap and Td Vaccines (1 - Tdap) 1978 Pneumococcal Vaccine: 50+ Years (1 of 2 - PCV) 1978 Zoster Vaccines (1 of 2) 2009 COVID-19 Vaccine ( season) 2024 06/04/2021, 09/17/2020, 09/17/2020, Additional history exists RSV Immunization or 60+ Years (1 - 1-dose 75+ series) 2034 Meningococcal B Vaccine Aged Out No l onger eligible based on patient's age to complete this topic Meningococcal Vaccine Aged Out No hira kelli eligible based on patient's age to complete this topic RSV Immunizations Under 20 Months Aged Out No longer eligible based on patient's age to complete this topic Medical Devices Implanted Type Area Marble Carver Device Identifier Shelf Expiration Date Model / Serial / Lot [employer] Simplicity Iol Delivery System Implanted:Qty: 1 on 02/17/2022 by Sundeep Ingram MD at [facility] Left: Eye [employer] [id number] 01/18/2025 / [id number] / Insurance [place]ICA[place] [address] MEDICARE ADVANTAGE OTHER on file Care Teams Computer Help Desk Representative Relationship Specialty Start Date End Date Ramirez Renae MD [address] [place] [id number] PCP - General FAMILY PRACTICE 02/17/22
[2024-10-05 05:59] LABS: Lactic Acid Reflex 2.9 mmol/L (0.7-2.0)
[2024-10-05 06:00] LABS: Ethanol < 10 mg/dL (<10)
[2024-10-05 06:01] LABS: Alanine Aminotransferase 32 U/L (6-50); Albumin Level 2.6 g/dL (3.5-5.1); Alkaline Phosphatase 128 U/L (38-126); Anion Gap 7 mmol/L (4-12); Aspartate Amino Transferase 77 U/L (17-59); Bilirubin,Total 5.4 mg/dL (0.2-1.3); Blood Urea Nitrogen 13 mg/dL (9-20); Calcium 8.1 mg/dL (8.4-10.2); Carbon Dioxide 24 mmol/L (22-30); Chloride 100 mmol/L (98-107); Estimated CRCL calculation 78 ml/min; Estimated Glomerular Filt Rate > 60; Glucose 108 mg/dL (65-110); Lipase 77 U/L (23-300); Phosphorus 3.2 mg/dL (2.5-4.5); Potassium 3.3 mmol/L (3.4-5.0); Sodium 131 mmol/L (137-145)
[2024-10-05 06:11] LABS: INR 1.8; Prothrombin Time 21.3 Seconds (11.1-14.7)
[2024-10-05 06:12] LABS: Partial Thromboplastin Time 38.1 Seconds (22.3-36.8); Troponin I < 0.012 ng/mL (0.000-0.034)
[2024-10-05 06:20] LABS: Influenza A QL RT-PCR Negative (Negative); Influenza B QL RT-PCR Negative (Negative); RSV RNA, RT-PCR Negative (Negative); SARS-CoV-2 RNA PCR Negative (Negative)
[2024-10-05 06:31] LABS: Macrocytosis 1+ (NORMAL); Platelet Estimate Slightly Decreased (Adequate); Schistocytes None Seen
[2024-10-05 07:41] LABS: Reflex Lactic Acid Yes or No Add Lactic
--- NOTE | 2024-10-05 07:44 | ECG_ITS ---
Test Date: 2024-10-05 07:52:50 Measurements Intervals [place] Rate: 95 P: 25 [place]: 129 QRS: 54 QRSD: 82 T: 44 QT: 367 QTc: 463 Interpretive Statements SINUS RHYTHM LOW QRS VOLTAGE [QRS DEFLECTION < 0.5/1.0 mV IN LIMB/CHEST LEADS] ANTEROSEPTAL MYOCARDIAL INFARCTION , PROBABLY OLD [40+ ms Q WAVE IN V1-V4] Compared to ECG 10/05/2024 05:44:38 Sinus tachycardia no longer present Electronically Signed On 10-05-2024 11:58:33 CDT by Demian Arredondo M.D.
[2024-10-05] MEDS: cefTRIAXone 2 GM/NS 100 ML 2 GM/100 ML BAG IVPB (07:53)
[2024-10-05 08:02] LABS: Add Urine Microscopic? YES; Appearance Urine Clear (Clear); Bacteria Urine 4+ /hpf; Bilirubin Urine 1+ (Negative); Blood Urine Negative (Negative); Color Urine Dark Yellow (Yellow); Glucose Urine UA Negative (Negative); Ketones Urine Trace mg/dL (Negative); Leukocyte Esterase Ur 1+ LEU/UL (Negative); Need Manual Microscopic Reviewed; Nitrate Urine Negative (Negative); Protein Urine Negative (Negative); Specific Grav Ur 1.037 (1.001-1.035); Squamous Epithelial Cell Urine Occasional /hpf (Few); pH Urine 6.5 (5.0-9.0)
[2024-10-05 08:23] LABS: Lactic Acid 1.7 mmol/L (0.7-2.0)
[2024-10-05 08:32] LABS: Lactate Dehydrogenase < 200 U/L (120-246)
[2024-10-05 08:34] LABS: Troponin I < 0.012 ng/mL (0.000-0.034)
[2024-10-05 08:48] LABS: Amphetamine Screen Urine Negative (Negative); Barbiturate Screen Urine Negative (Negative); Benzodiazepines Screen Urine Positive (Negative); Cannabinoid Screen Urine Negative (Negative); Cocaine Screen Urine Negative (Negative); Methadone Screen Urine Negative (Negative); Opiate Screen Urine Positive (Negative); Phencyclidine Screen Urine Negative (Negative)
[2024-10-05 08:51] LABS: Appearance Peritoneal Fluid Clear (Clear); Color Peritoneal Fluid Yellow (Colorless); Source Peritoneal Fluid Peritoneal Fluid
[2024-10-05 08:52] LABS: Lymphocytes Peritoneal Fluid 26 %; Macrophages Peritoneal Fluid 43 %; Monocytes Peritoneal Fluid 26 %; Neutrophils Peritoneal Fluid 5 % (0-25); Nucleated Cells Peritoneal Flu 35 /uL (0-500); RBC Peritoneal Fluid < 2000 /uL (0-10000)
[2024-10-05] MEDS: ALPRAZolam (*CRX) 0.5 MG TABLET PO (09:01)
--- NOTE | 2024-10-05 10:07 | ADMGEN ---
This patient, Lloyd Scales, was admitted to [facility] Surg Room 330-02. Patient/family oriented to hospital policies and general routines including ID bracelet, bed and alarms, visiting hours, pain management, procedures, bathroom and other care routines, personal items, smoking policy, room service/diet, and visiting hours. Information on how to activate the Rapid Response Team has been discussed. Patient/Family are encouraged to report perceived risks to care and to ask questions if they do not understand what they are told or what they should do.
[2024-10-05] MEDS: NICOTINE (*PBKC) 21 MG PATCH 1 PATCH TRANSDERM (15:53)
--- NOTE | 2024-10-05 16:16 | P.HP_ITS ---
H&P: HPI History of Present Illness Date/Time: 10/05/24 16:16 Chief Complaint: abd and back pain Narrative: 64-year-old male past medical history of liver cirrhosis, BPH, chronic anemia, generalized anxiety disorder, back pain hypertension who presents ER with abdominal pain and back pain. Patient reported his about 3:00 a.m. a mechanical hitting his back history having no back along with abdominal pain which prompted him to present to the ER for proper positioning care. Denies any chest pain no shortness of bread, no vomiting, no diarrhea no dysuria,. ER eval notable V/S HR 101, RR 14, BP 96/56, saturating 95% on room air Labs notable for Hb 9.3, K 3.3, 2.9 LA repeat 1.7. Cervical CT showed C2 on C3 anterolisthesis CT AP showed large ascites with sable 2.7 cm had 2 liters peritoneal fluid was removed Review of Systems Review of Systems: all other systems were reviewed adn negative except as noted in the HPi above PMFSH Past Medical History Medical History Chronic anemia Spina bifida occulta Alcohol withdrawal seizure BPH (benign prostatic hyperplasia) Hyperlipidemia Alcoholism Liver cirrhosis Hypertension Surgical History Surgical History Status post left foot surgery H/O hemorrhoidectomy S/P shoulder replacement Family History Family History Mother Family history of diabetes mellitus in first degree relative Family history of coronary artery disease Heart disease Social History Social History Social History: the patient is disabled and he lives with his . He does not have any biological children but she has 2 children. The patient stated that he quit drinking alcohol about 2-3 months ago. Otherwise he would binge drink beer quite often. He denies any illicit drugs. The patient stated he still and about 3 or 4 cigarettes a day. The patient is listed as a full code. His is the durable power compliance attorney for healthcare. Smoking packs per day: 0.5 Smoking cigarettes per day: 10.0 Years smoked: 50 Smoking pack-years: 25.00 Smoking status: Current every day smoker Tobacco type: cigarettes Second hand tobacco smoke exposure: Yes Alcohol intake: current Drinks per week: 4 Substance use: never Substance use type: does not use Do You Feel Safe in your Home?: Yes Lack of Transportation: No Lack of Food: Never True Current Housing: I Have Housing Concerned About Future Housing: Decline to Answer Difficulty Paying Gas/Electric Bills: Decline to Answer Difficulty Paying for Meds: Decline to Answer Currently Unemployed: Decline to Answer Education: Decline to Answer Difficulty w/ Childcare or Family Care: Decline to Answer Living arrangements: with family Additional occupation/education comments: Disability Gender identity (if verbalized by the patient): Male Spiritual care concerns: No Agree to blood products: Yes Meds Home Medications and Allergies Home Medications ?Medication ?Instructions ?Recorded ?Confirmed ?Type magnesium oxide 400 mg (241.3 mg 400 mg PO QAM #30 tabs 05/04/20 10/05/24 Rx magnesium) tablet famotidine 20 mg tablet (Pepcid) 20 mg PO BID #30 tabs 07/06/20 10/05/24 Rx vitamin B comp and C no.3 15 mg-10 1 cap PO WEEKLY 01/21/23 10/05/24 History mg-50 mg-5 mg-300 mg capsule baclofen 20 mg tablet 20 mg PO QHS #30 tabs 10/12/23 10/05/24 Rx tamsulosin 0.4 mg capsule 0.4 mg PO DAILY #90 caps 01/18/24 10/05/24 Rx allopurinol 300 mg tablet 150 mg (1/2 x 300 mg) PO DAILY #45 02/12/24 10/05/24 Rx tabs mupirocin 2 % topical ointment 1 applic topical BID #22 grams 03/07/24 10/05/24 Rx furosemide 40 mg tablet See Rx Instructions .Route 07/27/24 10/05/24 Rx .COMPLEX #90 tabs alprazolam 0.5 mg tablet 0.5 mg PO QID PRN anxiety #360 tabs 09/14/24 10/05/24 Rx oxycodone 10 mg tablet See Rx Instructions PO TID PRN 09/29/24 10/05/24 Rx pain #75 tabs spironolactone 50 mg tablet 100 mg (2 x 50 mg) PO 1600 #180 10/05/24 10/05/24 Rx (Aldactone) tabs Allergies Allergy/AdvReac Type Severity Reaction Status Date / Time No Known Allergies Allergy Verified 10/05/24 10:07 Vital Signs Vital Signs - 24 hr 10/05/24 04:53 10/05/24 06:06 10/05/24 06:36 Temperature 98.2 F Pulse Rate 101 H 99 99 Respiratory Rate 14 14 14 Blood Pressure 96/56 L 90/59 L 102/58 L Pulse Oximetry 95 98 95 Oxygen Delivery Room Air 10/05/24 08:41 10/05/24 10:08 10/05/24 11:12 Temperature 97.4 F L Pulse Rate 95 97 Respiratory Rate 17 16 Blood Pressure 93/58 L 103/60 Pulse Oximetry 96 98 Oxygen Delivery Room Air 10/05/24 14:00 Temperature 96.6 F L Pulse Rate 101 H Respiratory Rate 18 Blood Pressure 101/72 Pulse Oximetry 98 Oxygen Delivery Exam Narrative: General: alert and comfortable Eyes: EOMI, PERRLA ENNT External ears normal, Neck is supple, no masses, Respiratory systems: Clear to auscultation Cardiovascular S1, S2, normal rhythm, no murmur, rub, or gallop; no thrill or palpable murmurs on palpation. Gastrointestinal: soft, non-tender, and non-distended abdomen with no masses; BS present Skin: no rash, lesions, ulcerations, subcutaneous nodules or induration Musculoskeletal: no abnormality and no tenderness, normal ROM Neurologic: Alert and oriented x3, non focal Mental Status Exam: normal affect H&P: Results Labs Labs: Short CBC 10/05/24 Range/Units 05:32 WBC 6.7 (4.5-10.0) K/mm3 Hgb 9.3 L D (14.0-18.0) g/dL Hct 28.7 L (42.0-52.0) % Plt Count 120 L (150-375) k/mm3 BMP 10/05/24 05:32 Sodium 131 L Potassium 3.3 L Chloride 100 Carbon Dioxide 24 BUN 13 Creatinine 0.92 Glucose 108 Calcium 8.1 L Cardiac Enzymes 10/05/24 10/05/24 Range/Units 05:32 08:05 Troponin I < 0.012 < 0.012 (0.000-0.034) ng/mL Liver Function 10/05/24 Range/Units 05:32 Total Bilirubin 5.4 H (0.2-1.3) mg/dL AST 77 H (17-59) U/L ALT 32 (6-50) U/L Alkaline Phosphatase 128 H (38-126) U/L Albumin 2.6 L (3.5-5.1) g/dL Urine 10/05/24 Range/Units 07:42 Urine Color Dark yellow (Yellow) Urine Appearance Clear (Clear) Urine pH 6.5 (5.0-9.0) Ur Specific [place] 1.037 H (1.001-1.035) Urine Protein Negative (Negative) mg/dL Urine Glucose (UA) Negative (Negative) mg/dL Assessment and Plan Assessment and plan (1) Cirrhosis of liver with ascites: Qualifiers: Hepatic cirrhosis type: alcoholic cirrhosis Qualified Code(s): K70.31 - Alcoholic cirrhosis of liver with ascites Code(s): K74.60 - Unspecified cirrhosis of liver; R18.8 - Other ascites Status: Acute (2) Low back pain, unspecified: Code(s): M54.50 - Low back pain, unspecified Status: Acute Plan Back pain with anterolisthesis of C2 on C3 CT cervical spien reviewed Spinen surgery consulted PRN pain control Cervical collar pending spine eval Liver cirrhosis with ascites S/p paracentesis with 2 liters removed Contineu Spironolactone, started on IV lasix Contieu Rocephin, f/u Peritoneal fluid analysis and culture monitor HTN titrate home meds with clinical course BPH continue Tamsulosin Macrocytic anemia likely from Liver cirrhosis B12/folate ordered monitor h and h DVT prophylaxis on Sq Lovenox DNR Surrogate decision maker [facility] Advance Care Plan I have confirmed that the patient's Advanced Care Plan is present, code status is documented, or surrogate decision maker is listed in patient medical record.: Yes Medication Reconciliation I have utilized all available resources to obtain, update and review the patients current medications (includes all prescriptions, OTC, herbals, cannabis, and nutritional supplements).: Yes
[2024-10-05] MEDS: oxyCODONE HCL (*CRX) 2.5 MG TAB IR PO (16:26)
[2024-10-05] MEDS: SPIRONOLACTONE 50 MG TABLET 100 MG PO (16:27)
[2024-10-05] MEDS: FUROSEMIDE INJ 40 MG/4 ML VIAL IV PUSH (16:27)
[2024-10-05] MEDS: BACLOFEN 10 MG TABLET 20 MG PO (20:20)
[2024-10-06 05:15] VITALS: BP 111/60; PULSE 103; RESP 16; TEMP 37.1; O2SAT 99
--- NOTE | 2024-10-06 06:41 | PC.NURSE ---
Indwelling catheter inserted with approx. 100 ml urine return. Bladder scan showed greater than 660 ml urine. Pt. has abdominal ascites with 2200 ml drained yesterday and questioning if bladder scan was picking up ascites as being urine. This was discussed with charge nurse and miller.
[2024-10-06] MEDS: FUROSEMIDE INJ 40 MG/4 ML VIAL IV PUSH (07:39)
[2024-10-06] MEDS: TAMSULOSIN HCL 0.4 MG CAPSULE PO (07:39)
[2024-10-06] MEDS: ALPRAZolam (*CRX) 0.5 MG TABLET PO (07:39)
[2024-10-06] MEDS: NICOTINE (*PBKC) 21 MG PATCH 1 PATCH TRANSDERM (07:40)
[2024-10-06 07:52] LABS: Folic Acid 8.7 ng/mL (2.76->20); Vitamin B12 > 1000.0 pg/mL (239-931)
[2024-10-06 10:44] LABS: Hematocrit 26.9 % (42.0-52.0); Hemoglobin 8.7 g/dL (14.0-18.0); Mean Corpuscular HGB Conc 32.3 g/dl (32-36); Mean Corpuscular Hemoglobin 35.1 pg (26-34); Mean Corpuscular Volume 108.5 fl (80-100); Mean Platelet Volume 9.6 fl (7.4-10.4); Platelet Count Result 115 k/mm3 (150-375); Red Blood Count 2.48 M/mm3 (4.6-6.20); Red Cell Distribution Width 17.3 % (11.5-14.5); White Blood Count 6.1 K/mm3 (4.5-10.0)
[2024-10-06 11:19] LABS: Prothrombin Time 23.2 Seconds (11.1-14.7)
[2024-10-06 11:20] LABS: Partial Thromboplastin Time 38.3 Seconds (22.3-36.8)
--- NOTE | 2024-10-06 11:24 | PCPTNOTE ---
Attempted PT evaluation, pt working with OT then leaving for procedure this afternoon. Will follow.
[2024-10-06 11:26] LABS: Alanine Aminotransferase 28 U/L (6-50); Albumin Level 2.4 g/dL (3.5-5.1); Alkaline Phosphatase 113 U/L (38-126); Anion Gap 7 mmol/L (4-12); Aspartate Amino Transferase 73 U/L (17-59); Bilirubin,Total 4.3 mg/dL (0.2-1.3); Blood Urea Nitrogen 13 mg/dL (9-20); Calcium 7.7 mg/dL (8.4-10.2); Carbon Dioxide 22 mmol/L (22-30); Chloride 100 mmol/L (98-107); Estimated CRCL calculation 64 ml/min; Estimated Glomerular Filt Rate > 60; Glucose 112 mg/dL (65-110); Potassium 3.7 mmol/L (3.4-5.0); Sodium 129 mmol/L (137-145)
--- NOTE | 2024-10-06 13:42 | P.PNIM_ITS ---
Progress Note: A&P Assessment and Plan (1) Cirrhosis of liver with ascites: Qualifiers: Hepatic cirrhosis type: alcoholic cirrhosis Qualified Code(s): K70.31 - Alcoholic cirrhosis of liver with ascites Code(s): K74.60 - Unspecified cirrhosis of liver; R18.8 - Other ascites Status: Acute (2) Low back pain, unspecified: Code(s): M54.50 - Low back pain, unspecified Status: Acute Plan Liver cirrhosis with ascites S/p paracentesis with 2 liters removed Continue Spironolactone, started on IV lasix Peritoneal fluid analysis negative for SBP discontinued Abx monitor Back pain with anterolisthesis of C2 on C3 CT cervical spine reviewed Spine surgery report this has no clinical significance PRN pain control Cervical collar pending spine eval HTN titrate home meds with clinical course BPH continue Tamsulosin Macrocytic anemia likely from Liver cirrhosis B12/folate wnl monitor h and h DVT prophylaxis on Sq Lovenox DNR Awaiting PT/OT for discharge disposition Subjective Date/time seen: 10/06/24 13:42 Interval history: Patient comfort at bedside Review of Systems Review of Systems: all other systems were reviewed adn negative except as noted in the HPi above Exam Narrative: General: alert and comfortable Eyes: EOMI, PERRLA ENNT External ears normal, Neck is supple, no masses, Respiratory systems: Clear to auscultation Cardiovascular S1, S2, normal rhythm, no murmur, rub, or gallop; no thrill or palpable murmurs on palpation. Gastrointestinal: soft, non-tender, and non-distended abdomen with no masses; BS present Skin: no rash, lesions, ulcerations, subcutaneous nodules or induration Musculoskeletal: no abnormality and no tenderness, normal ROM Neurologic: Alert and oriented x3, non focal Mental Status Exam: normal affect Objective Data Vital Signs Vital Signs: Vital Signs - 24 hr 10/05/24 14:00 10/05/24 20:00 10/05/24 20:30 Temperature 96.6 F L 97.3 F L Pulse Rate 101 H 103 H Respiratory Rate 18 20 Blood Pressure 101/72 92/61 L Pulse Oximetry 98 98 Oxygen Delivery Room Air 10/05/24 22:38 10/06/24 05:15 10/06/24 08:00 Temperature 98.8 F Pulse Rate 103 H Respiratory Rate 16 Blood Pressure 111/60 Pulse Oximetry 95 99 Oxygen Delivery Room Air Intake/Output Intake/Output: Intake & Output 10/03/24 10/04/24 10/05/24 10/06/24 23:59 23:59 23:59 23:59 Intake Total 1820 600 Output Total 150 Balance 1820 450 Meds/Results Medications: Active Medications Generic Name Dose Route Start Last Admin Trade Name Freq PRN Reason Stop Dose Admin Alprazolam 0.5 mg 10/05/24 16:15 10/06/24 07:39 Alprazolam (*Crx) 0.5 Mg Tablet PO 0.5 mg QID PRN Administration anxiety Baclofen 20 mg 10/05/24 21:00 10/05/24 20:20 Baclofen 10 Mg Tablet PO 20 mg QHS AMBER Administration Enoxaparin Sodium 40 mg 10/06/24 09:00 10/06/24 07:55 Enoxaparin 40 Mg/0.4 Ml Syringe SUB-Q Not Given DAILY AMBER Furosemide 40 mg 10/05/24 17:00 10/06/24 07:39 Furosemide Inj 40 Mg/4 Ml Vial IV PUSH 40 mg BID AMBER Administration Nicotine 1 patch 10/05/24 15:30 10/06/24 07:40 Nicotine (*Pbkc) 21 Mg Patch TRANSDERM 1 patch DAILY AMBER Administration Oxycodone HCl 2.5 - 5 mg 10/05/24 16:15 10/05/24 16:26 Oxycodone Hcl (*Crx) 2.5 Mg Tab Ir PO 5 mg TID PRN Administration pain Spironolactone 100 mg 10/05/24 16:15 10/05/24 16:27 Spironolactone 50 Mg Tablet PO 100 mg 1600 AMBER Administration Tamsulosin HCl 0.4 mg 10/06/24 09:00 10/06/24 07:39 Tamsulosin Hcl 0.4 Mg Capsule PO 0.4 mg DAILY AMBER Administration Radiology Results: ITS Impressions Chest X-Ray 10/05/24 06:20 Impression: Probable discoid left basilar atelectasis or scarring, otherwise clear lungs. Head CT 10/05/24 06:40 Impression: No acute abnormality seen. Moderate generalized atrophy. Cervical Spine CT 10/05/24 06:41 Impression: No acute fracture. 3 mm anterolisthesis of C2 over C3. Moderate to advanced degenerative change in the cervical spine, as above. Chest/Abdomen/Pelvis CT 10/05/24 06:44 Impression: Cirrhotic liver with associated varices and large amount of abdominopelvic ascit es. Stable 2.7 cm adrenal nodule and thickening/nodularity the right adrenal gland. Cholelithiasis. Stable focal calcifications of the pancreatic head. Common duct stones are not completely excluded, though this is more likely related to chronic pancreatitis. No biliary dilatation evident. Labs Labs: Laboratory Results - last 24 hr 10/06/24 10/06/24 06:28 10:38 WBC 6.1 RBC 2.48 L Hgb 8.7 L Hct 26.9 L MCV 108.5 H MCH 35.1 H MCHC 32.3 RDW 17.3 H Plt Count 115 L MPV 9.6 PT 23.2 H INR 2.0 APTT 38.3 H Sodium 129 L Potassium 3.7 Chloride 100 Carbon Dioxide 22 Anion Gap 7 BUN 13 Creatinine 0.94 Estim Creat Clear Calc 64 Estimated GFR > 60 Glucose 112 H Calcium 7.7 L Total Bilirubin 4.3 H AST 73 H ALT 28 Alkaline Phosphatase 113 Total Protein 6.0 L Albumin 2.4 L Vitamin B12 > 1000.0 H Folate 8.7
[2024-10-06 13:56] VITALS: BP 92/63; PULSE 105; RESP 18; TEMP 36.7; O2SAT 95
[2024-10-06 14:57] VITALS: BP 86/50; PULSE 110; O2SAT 99
[2024-10-06] MEDS: MIDODRINE HCL 10 MG TABLET PO (15:09)
[2024-10-06] MEDS: ALBUMIN HUMAN 25% 25 GM/100 ML 100 ML IVPB (15:51)
[2024-10-06 16:44] VITALS: BP 92/52
[2024-10-06 20:35] VITALS: BP 100/62; PULSE 106; RESP 16; TEMP 36.7; O2SAT 100
[2024-10-07 04:45] VITALS: BP 96/51; PULSE 101; RESP 16; TEMP 36.6; O2SAT 98
[2024-10-07 06:57] LABS: Eosinophils Absolute Auto 0.1 K/mm3 (0-0.3); Eosinophils Percent Auto 1.5 % (0-4.4); Hematocrit 23.7 % (42.0-52.0); Hemoglobin 7.7 g/dL (14.0-18.0); Immature Granulocyte Absolute 0.02 K/mm3 (0.00-0.031); Immature Granulocyte Percent A 0.4 % (0-0.5); Lymphocytes Absolute Auto 0.83 K/mm3 (0.9-3.2); Lymphocytes Percent Auto 17.8 % (18.3-44.2); Mean Corpuscular HGB Conc 32.5 g/dl (32-36); Mean Corpuscular Hemoglobin 34.8 pg (26-34); Mean Corpuscular Volume 107.2 fl (80-100); Mean Platelet Volume 9.1 fl (7.4-10.4); Monocytes Absolute Auto 0.6 K/mm3 (0.1-0.6); Monocytes Percent Auto 11.8 % (2.6-8.5); Neutrophils Absolute Auto 3.2 K/mm3 (1.3-6.7); Neutrophils Percent Auto 68.5 % (45.5-73.1); Platelet Count Result 104 k/mm3 (150-375); Red Blood Count 2.21 M/mm3 (4.6-6.20); White Blood Count 4.7 K/mm3 (4.5-10.0)
[2024-10-07 07:10] LABS: Alanine Aminotransferase 24 U/L (6-50); Albumin Level 2.2 g/dL (3.5-5.1); Alkaline Phosphatase 88 U/L (38-126); Anion Gap 5 mmol/L (4-12); Aspartate Amino Transferase 56 U/L (17-59); Blood Urea Nitrogen 11 mg/dL (9-20); Calcium 7.6 mg/dL (8.4-10.2); Carbon Dioxide 23 mmol/L (22-30); Chloride 101 mmol/L (98-107); Estimated CRCL calculation 76 ml/min; Estimated Glomerular Filt Rate > 60; Glucose 99 mg/dL (65-110); Magnesium 1.7 mg/dL (1.6-2.3); Potassium 3.2 mmol/L (3.4-5.0); Sodium 129 mmol/L (137-145)
[2024-10-07 07:32] LABS: Anisocytosis 1+; Hypochromasia 1+; Platelet Estimate Slightly Decreased (Adequate); Target Cells 1+
[2024-10-07] MEDS: NICOTINE (*PBKC) 21 MG PATCH 1 PATCH TRANSDERM (08:16)
[2024-10-07] MEDS: MIDODRINE HCL 10 MG TABLET PO ×3 (08:16→16:59)
[2024-10-07] MEDS: FUROSEMIDE INJ 40 MG/4 ML VIAL IV PUSH (08:16)
[2024-10-07] MEDS: TAMSULOSIN HCL 0.4 MG CAPSULE PO (08:16)
--- NOTE | 2024-10-07 09:50 | PCOTNOTE ---
Per PT, while performing PT evaluation, Patient having low blood pressures and having increased pain. Patient unable to be seen for OT treatment session at this time. Patient to have possible additional testing needed. Will check back at a later time.
[2024-10-07] MEDS: LIDOCAINE 5% PATCH 1 PATCH TRANSDERM (11:07)
[2024-10-07] MEDS: AMOXICILLIN 500 MG CAPSULE PO ×3 (11:07→21:00)
--- NOTE | 2024-10-07 13:02 | PCOTNOTE ---
Attempted to see Patient this P.M. Patient refused to much pain, not today.
--- NOTE | 2024-10-07 13:47 | PM.IMPN ---
Progress Note: A&P Assessment and Plan (1) Cirrhosis of liver with ascites: Qualifiers: Hepatic cirrhosis type: alcoholic cirrhosis Qualified Code(s): K70.31 - Alcoholic cirrhosis of liver with ascites Code(s): K74.60 - Unspecified cirrhosis of liver; R18.8 - Other ascites Status: Acute (2) Low back pain, unspecified: Code(s): M54.50 - Low back pain, unspecified Status: Acute Plan Liver cirrhosis with ascites S/p paracentesis with 7 liters removed Peritoneal fluid analysis negative for SBP discontinued Abx hold diuretics due to hypotension Contineu midodrine monitor Right ribs fracture CXR reviewed continue PRN pain control PT/OT consulted Enterococcus UTI On Amoxicillin urine cultured reviewed monitor Back pain with anterolisthesis of C2 on C3 CT cervical spine reviewed neuro surgery stated this has no clinical significance in discussion with her PRN pain control HTN titrate home meds with clinical course BPH continue Tamsulosin Macrocytic anemia likely from Liver cirrhosis B12/folate wnl monitor h and h DVT prophylaxis on Sq Lovenox DNR Awaiting PT/OT for discharge disposition Subjective Date/time seen: 10/07/24 13:47 Interval history: Patient comfortable at bedside HYpotensive earlier today on Midodrine and diuretics on hold Review of Systems Review of Systems: all other systems were reviewed adn negative except as noted in the HPi above Exam Narrative: General: alert and comfortable Eyes: EOMI, PERRLA ENNT External ears normal, Neck is supple, no masses, Respiratory systems: Clear to auscultation Cardiovascular S1, S2, normal rhythm, no murmur, rub, or gallop; no thrill or palpable murmurs on palpation. Gastrointestinal: soft, non-tender, and non-distended abdomen with no masses; BS present Skin: no rash, lesions, ulcerations, subcutaneous nodules or induration Musculoskeletal: no abnormality and no tenderness, normal ROM Neurologic: Alert and oriented x3, non focal Mental Status Exam: normal affect Objective Data Vital Signs Vital Signs: Vital Signs - 24 hr 10/06/24 13:56 10/06/24 14:57 10/06/24 16:44 Temperature 98.0 F Pulse Rate 105 H 110 H Respiratory Rate 18 Blood Pressure 92/63 L 86/50 L 92/52 L Pulse Oximetry 95 99 Oxygen Delivery 10/06/24 20:35 10/06/24 20:38 10/07/24 04:45 Temperature 98.1 F 97.9 F Pulse Rate 106 H 101 H Respiratory Rate 16 16 Blood Pressure 100/62 96/51 L Pulse Oximetry 100 98 Oxygen Delivery Room Air 10/07/24 08:00 10/07/24 09:31 Temperature Pulse Rate Respiratory Rate Blood Pressure Pulse Oximetry Oxygen Delivery Room Air Room Air Intake/Output Intake/Output: Intake & Output 10/04/24 10/05/24 10/06/24 10/07/24 23:59 23:59 23:59 23:59 Intake Total 1820 1226 462 Output Total 5400 950 Balance 1820 -4174 -488 Meds/Results Medications: Active Medications Generic Name Dose Route Start Last Admin Trade Name Freq PRN Reason Stop Dose Admin Alprazolam 0.5 mg 10/05/24 16:15 10/06/24 07:39 Alprazolam (*Crx) 0.5 Mg Tablet PO 0.5 mg QID PRN Administration anxiety Amoxicillin 500 mg 10/07/24 10:00 10/07/24 13:00 Amoxicillin 500 Mg Capsule PO 10/13/24 22:01 500 mg Q8HR AMBER Administration Baclofen 20 mg 10/05/24 21:00 10/06/24 20:38 Baclofen 10 Mg Tablet PO Not Given QHS AMBER Enoxaparin Sodium 40 mg 10/06/24 09:00 10/07/24 08:16 Enoxaparin 40 Mg/0.4 Ml Syringe SUB-Q Not Given DAILY AMBER Furosemide 40 mg 10/05/24 17:00 10/07/24 08:16 Furosemide Inj 40 Mg/4 Ml Vial IV PUSH 40 mg BID AMBER Administration Lidocaine 1 patch 10/07/24 11:00 10/07/24 11:07 Lidocaine 5% Patch TRANSDERM 1 patch DAILY AMBER Administration Midodrine 10 mg 10/06/24 17:00 10/07/24 13:00 Midodrine Hcl 10 Mg Tablet PO 10 mg TID AMBER Administration Nicotine 1 patch 10/05/24 15:30 10/07/24 08:16 Nicotine (*Pbkc) 21 Mg Patch TRANSDERM 1 patch DAILY AMBER Administration Oxycodone HCl 2.5 - 5 mg 10/05/24 16:15 10/05/24 16:26 Oxycodone Hcl (*Crx) 2.5 Mg Tab Ir PO 5 mg TID PRN Administration pain Spironolactone 100 mg 10/05/24 16:15 10/06/24 16:53 Spironolactone 50 Mg Tablet PO Not Given 1600 AMBER Tamsulosin HCl 0.4 mg 10/06/24 09:00 10/07/24 08:16 Tamsulosin Hcl 0.4 Mg Capsule PO 0.4 mg DAILY AMBER Administration Radiology Results: ITS Impressions Chest X-Ray 10/05/24 06:20 Impression: Probable discoid left basilar atelectasis or scarring, otherwise clear lungs. Head CT 10/05/24 06:40 Impression: No acute abnormality seen. Moderate generalized atrophy. Cervical Spine CT 10/05/24 06:41 Impression: No acute fracture. 3 mm anterolisthesis of C2 over C3. Moderate to advanced degenerative change in the cervical spine, as above. Chest/Abdomen/Pelvis CT 10/05/24 06:44 Impression: Cirrhotic liver with associated varices and large amount of abdominopelvic ascites. Stable 2.7 cm adrenal nodule and thickening/nodularity the right adrenal gland. Cholelithiasis. Stable focal calcifications of the pancreatic head. Common duct stones are not completely excluded, though this is more likely related to chronic pancreatitis. No biliary dilatation evident. Abdomen Ultrasound 10/06/24 15:11 IMPRESSION: 1: Cirrhosis of the liver with ascites. 2: Echogenic material dependently near the gallbladder neck which may represent sludge or stones. Paracentesis Ultrasound 10/06/24 16:11 IMPRESSION: 1. Successful ultrasound-guided paracentesis yielding 5000 mL of straw-colored fluid. Ribs X-Ray 10/07/24 10:50 IMPRESSION: 1: Acute right 10th rib fracture. Possible right ninth and 11th rib fractures. 2: Gallstones. Labs Labs: Laboratory Results - last 24 hr 10/07/24 06:42 WBC 4.7 RBC 2.21 L Hgb 7.7 L Hct 23.7 L MCV 107.2 H MCH 34.8 H MCHC 32.5 RDW 17.0 H Plt Count 104 L MPV 9.1 Immature Gran % (Auto) 0.4 Neut % (Auto) 68.5 Lymph % (Auto) 17.8 L [place] % (Auto) 11.8 H Eos % (Auto) 1.5 Baso % (Auto) 0.0 L Lymph # (Auto) 0.83 L [place] # (Auto) 0.6 Eos # (Auto) 0.1 Baso # (Auto) 0.0 Abs Immat Gran (auto) 0.02 Absolute Neuts (auto) 3.2 Absolute Nucleated RBC 0.000 Band Neutrophils % Not Reportable Nucleated RBC % 0.0 Platelet Estimate Slightly decreased Hypochromasia 1+ Anisocytosis 1+ Target Cells 1+ Schistocytes Not Reportable Sodium 129 L Potassium 3.2 L Chloride 101 Carbon Dioxide 23 Anion Gap 5 BUN 11 Creatinine 0.79 Estim Creat Clear Calc 76 Estimated GFR > 60 Glucose 99 Calcium 7.6 L Magnesium 1.7 Total Bilirubin 4.0 H AST 56 ALT 24 Alkaline Phosphatase 88 Total Protein 5.0 L Albumin 2.2 L
[2024-10-07 14:00] VITALS: BP 100/58; PULSE 98; RESP 20; TEMP 37; O2SAT 100
[2024-10-07] MEDS: SPIRONOLACTONE 50 MG TABLET 100 MG PO (16:59)
[2024-10-07 20:00] VITALS: PULSE 98; RESP 20; O2SAT 100
[2024-10-07] MEDS: BACLOFEN 10 MG TABLET 20 MG PO (21:00)
[2024-10-07 21:10] VITALS: BP 96/61; PULSE 99; RESP 18; TEMP 37.1; O2SAT 97
[2024-10-08 04:45] VITALS: BP 118/70; PULSE 91; RESP 16; TEMP 37; O2SAT 97
[2024-10-08] MEDS: AMOXICILLIN 500 MG CAPSULE PO ×2 (05:18→12:44)
[2024-10-08 06:24] LABS: Basophils Percent Auto 0.4 % (0.2-1.2); Eosinophils Absolute Auto 0.1 K/mm3 (0-0.3); Eosinophils Percent Auto 1.3 % (0-4.4); Hematocrit 24.3 % (42.0-52.0); Immature Granulocyte Absolute 0.02 K/mm3 (0.00-0.031); Immature Granulocyte Percent A 0.4 % (0-0.5); Lymphocytes Percent Auto 25.3 % (18.3-44.2); Mean Corpuscular HGB Conc 32.9 g/dl (32-36); Mean Corpuscular Hemoglobin 35.2 pg (26-34); Mean Platelet Volume 9.6 fl (7.4-10.4); Monocytes Absolute Auto 0.6 K/mm3 (0.1-0.6); Monocytes Percent Auto 12.9 % (2.6-8.5); Neutrophils Absolute Auto 2.8 K/mm3 (1.3-6.7); Neutrophils Percent Auto 59.7 % (45.5-73.1); Platelet Count Result 120 k/mm3 (150-375); Red Blood Count 2.27 M/mm3 (4.6-6.20); Red Cell Distribution Width 17.5 % (11.5-14.5); White Blood Count 4.7 K/mm3 (4.5-10.0)
[2024-10-08 06:37] LABS: Alanine Aminotransferase 24 U/L (6-50); Albumin Level 2.2 g/dL (3.5-5.1); Alkaline Phosphatase 111 U/L (38-126); Anion Gap 5 mmol/L (4-12); Aspartate Amino Transferase 67 U/L (17-59); Bilirubin,Total 3.3 mg/dL (0.2-1.3); Blood Urea Nitrogen 10 mg/dL (9-20); Calcium 7.6 mg/dL (8.4-10.2); Carbon Dioxide 22 mmol/L (22-30); Chloride 102 mmol/L (98-107); Estimated CRCL calculation 77 ml/min; Estimated Glomerular Filt Rate > 60; Glucose 107 mg/dL (65-110); Magnesium 1.7 mg/dL (1.6-2.3); Potassium 3.3 mmol/L (3.4-5.0); Sodium 129 mmol/L (137-145)
[2024-10-08 07:02] LABS: Anisocytosis 1+; Hypochromasia 1+; Platelet Estimate Slightly Decreased (Adequate)
[2024-10-08 07:03] LABS: Burr Cells 1+; Schistocytes None Seen; Target Cells 1+
[2024-10-08 08:00] VITALS: O2SAT 97
[2024-10-08] MEDS: FUROSEMIDE INJ 40 MG/4 ML VIAL IV PUSH (08:49)
[2024-10-08] MEDS: MIDODRINE HCL 10 MG TABLET PO ×2 (08:49→12:44)
[2024-10-08] MEDS: LIDOCAINE 5% PATCH 1 PATCH TRANSDERM (08:49)
[2024-10-08] MEDS: TAMSULOSIN HCL 0.4 MG CAPSULE PO (08:50)
[2024-10-08] MEDS: NICOTINE (*PBKC) 21 MG PATCH 1 PATCH TRANSDERM (08:50)
[2024-10-08 09:07] LABS: Ammonia 14 umol/L (9-30)
--- NOTE | 2024-10-08 10:17 | PM.DS ---
DS: Admitting Diagnosis Discharge Date 10/08/24 Admitting Diagnosis abd and back pain DS: Discharge Diagnosis Discharge Diagnosis (1) Cirrhosis of liver with ascites: Qualifiers: Hepatic cirrhosis type: alcoholic cirrhosis Qualified Code(s): K70.31 - Alcoholic cirrhosis of liver with ascites Code(s): K74.60 - Unspecified cirrhosis of liver; R18.8 - Other ascites Status: Acute DS: Summary Hospital Course Hospital Course: 64-year-old male past medical history of liver cirrhosis, BPH, chronic anemia, generalized anxiety disorder, back pain hypertension who presents ER with abdominal pain and back pain. Patient reported his about 3:00 a.m. a mechanical hitting his back history having no back along with abdominal pain which prompted him to present to the ER for proper positioning care. Denies any chest pain no shortness of bread, no vomiting, no diarrhea no dysuria,. ER eval notable V/S HR 101, RR 14, BP 96/56, saturating 95% on room air Labs notable for Hb 9.3, K 3.3, 2.9 LA repeat 1.7. Cervical CT showed C2 on C3 anterolisthesis CT AP showed large ascites with sable 2.7 cm had 2 liters peritoneal fluid was removed Patient was admitted and had another 5 liters paracentesis done. However patient was orthostatic and was started on Midodrine 10mg tid, blood pressure and orthostatic vital signs wnl. Urine culture was positive pansensitive Enterococcus and managed with Amoxicillin, dischaged on 5 more days of Amoxicillin. Rib xray showed acute right 10th rib fracture with possible right ninth and 11th rib fractures. Neurosurgery reviewed C2 adn C3 anterolisthesis and noted it is insignificant and no neck collar needed F/u with PCP in 3-5 days Referrral to GI in 2 weeks Time Spent with Patient Time attestation: Total time spent providing and/or coordinating discharge services: DS: Data Data Completed and Pending Labs on day of discharge: Labs from last 24 hours 10/08/24 10/08/24 08:43 05:55 WBC 4.7 RBC 2.27 L Hgb 8.0 L Hct 24.3 L MCV 107.0 H MCH 35.2 H MCHC 32.9 RDW 17.5 H Plt Count 120 L MPV 9.6 Immature Gran % (Auto) 0.4 Neut % (Auto) 59.7 Lymph % (Auto) 25.3 [place] % (Auto) 12.9 H Eos % (Auto) 1.3 Baso % (Auto) 0.4 Lymph # (Auto) 1.20 [place] # (Auto) 0.6 Eos # (Auto) 0.1 Baso # (Auto) 0.0 Abs Immat Gran (auto) 0.02 Absolute Neuts (auto) 2.8 Absolute Nucleated RBC 0.000 Band Neutrophils % Not Reportable Nucleated RBC % 0.0 Platelet Estimate Slightly decreased Hypochromasia 1+ Anisocytosis 1+ Target Cells 1+ [place] Cells 1+ Schistocytes None seen Sodium 129 L Potassium 3.3 L Chloride 102 Carbon Dioxide 22 Anion Gap 5 BUN 10 Creatinine 0.78 Estim Creat Clear Calc 77 Estimated GFR > 60 Glucose 107 Calcium 7.6 L Magnesium 1.7 Total Bilirubin 3.3 H AST 67 H ALT 24 Alkaline Phosphatase 111 Ammonia 14 Total Protein 5.0 L Albumin 2.2 L Preliminary micro results at discharge 10/05/24 07:14 Anaerobic Culture - Preliminary Ascites Fluid Aerobic Culture - Preliminary 10/05/24 05:32 Blood Culture - Preliminary Blood 10/05/24 05:32 Blood Culture - Preliminary Blood Discharge Plan Discharge Attending physician on discharge: Radha Rivera Discharging Clinician: Radha Rivera Anticipated Discharge Date/Time: 10/08/24 10:12 Patient Disposition: Home with Home Health Service Activity: as tolerated Diet: as tolerated and regular Discharge Instructions: Per Care Coordination: [facility] ([phone]) will call to set up initial visit. Referral to GI in 2 weeks Patient Instructions: Antibiotic Form Patient Language: Irish Stand Alone Forms: General Discharge Information Follow-up/Referrals: Wilton Clemens MD [Physician] - (referral to GI in 2 weeks ) Ramirez Renae MD [Primary Care Provider] - (F/u with PCP in 3-5 days ) Discharge Medications: New midodrine 10 mg Tablet 10 mg PO TID 30 Days Qty: 90 0RF amoxicillin 500 mg Capsule 500 mg PO Q8HR 5 Days Qty: 15 0RF Continued vitamin B comp and C no.3 [id number] mg capsule 1 cap PO WEEKLY Rx Instructions: give with food (meal/snack) baclofen 20 mg tablet 20 mg PO QHS Qty: 30 5RF Rx Instructions: For muscle cramps magnesium oxide 400 mg (241.3 mg magnesium) Tablet 400 mg PO QAM Qty: 30 0RF famotidine [Pepcid] 20 mg tablet 20 mg PO BID Qty: 30 0RF tamsulosin 0.4 mg capsule 0.4 mg PO DAILY Qty: 90 2RF allopurinol 300 mg tablet 150 mg PO DAILY Qty: 45 6RF mupirocin 2 % ointment 1 applic topical BID Qty: 22 1RF furosemide 40 mg tablet See Rx Instructions .ROUTE .COMPLEX Qty: 90 2RF Dose Instruction: TAKE 1 TABLET BY MOUTH DAILY Rx Instructions: TAKE 1 TABLET BY MOUTH DAILY alprazolam 0.5 mg tablet 0.5 mg PO QID PRN (Reason: anxiety) Qty: 360 1RF oxycodone 10 mg tablet See Rx Instructions PO TID PRN (Reason: pain) Qty: 75 0RF Rx Instructions: Take 1/2 to 1 tablet orally three times a day PRN; spironolactone [Aldactone] 50 mg tablet 100 mg PO 1600 Qty: 180 1RF Date of admission: 10/06/24 09:53 Primary Care Provider: Ramirez Renae Admitting Provider: Radha Rivera Attending physician on admission: Radha Rivera Condition: Serious
[2024-10-08] MEDS: ALBUMIN HUMAN 25% 25 GM/100 ML 100 ML IVPB (10:23)
[2024-10-08 13:39] VITALS: BP 96/52; PULSE 100; RESP 16; TEMP 36.6; O2SAT 100
[2024-10-08 17:53] LABS: LDH Peritoneal Fluid 25 U/L (<63)
[2024-10-11 23:13] LABS: Albumin Peritoneal Fluid 0.4 g/dL; Amylase Peritoneal Fluid <10 U/L; Glucose Peritoneal Fluid 114 mg/dL; Total Protein Peritoneal Fluid <3.0 g/dL
== END 2024-10-08 15:15 | disposition home health service (06) | DRG 433 ==
LOC: ANHED 07:11 → ANH3MEDSUR 09:03
PROVIDERS: Admitting Provider Internal Medicine; Emergency Provider Emergency Medicine; PCP Family Medicine Adolescent Medicine; Visit Provider Internal Medicine
DX: K70.31 Alcoholic cirrhosis of liver with ascites (principal); N39.0 Urinary tract infection, site not specified; S22.41XA Multiple fractures of ribs, right side, initial encounter for closed fracture; B95.2 Enterococcus as the cause of diseases classified elsewhere; N40.0 Benign prostatic hyperplasia without lower urinary tract symptoms; W06.XXXA Fall from bed, initial encounter; M54.50 Low back pain, unspecified; D53.9 Nutritional anemia, unspecified; F41.1 Generalized anxiety disorder; I10 Essential (primary) hypertension; E78.5 Hyperlipidemia, unspecified; Z96.619 Presence of unspecified artificial shoulder joint; F17.210 Nicotine dependence, cigarettes, uncomplicated; Z66 Do not resuscitate
CPT/HCPCS: 36415; 49082; 49083; 70450; 71045; 71100; 71260; 72125; 74177; 76705; 80053; 80307; 81001; 82042; 82077; 82140; 82150; 82607; 82746; 82803; 82945; 82948; 83605; 83615; 83690; 83735; 84100; 84157; 84443; 84484; 85025; 85027; 85610; 85730; 87040; 87070; 87075; 87086; 87181; 87205; 87637; 89051; 93005; 96361; 96365; 96375; 96376; 97110; 97161; 97166; 97530; 99285; A9270; G0378; J0696; J1171; J1650; J1938; J7120; L0140; P9047; Q9967

== ENCOUNTER 2024-11-12 10:01 | Emergency (ER) | payer MEDICARE, MEDICAID, SELFPAY ==
[2024-11-12] VITALS (80 sets, daily range): BP systolic 55–98; BP diastolic 29–64; PULSE 72–115; RESP 8–28; TEMP 36.4; O2SAT 90–100
--- NOTE | ~2024-11-12 | XR_ITS ---
EXAMINATION: XR chest 1V portable DATE: 11/12/2024 11:56 INDICATION: Hypertension TECHNIQUE: frontal view of the chest was obtained. COMPARISON: Chest radiograph dated 10/07/2024 FINDINGS: Mild linear discoid atelectasis/scarring at the bilateral lower lung zones. No pulmonary edema, pleur al effusion or pneumothorax. The cardiomediastinal silhouette is normal. IMPRESSION: 1. Mild linear discoid atelectasis/scarring at the bilateral lower lung zones. Reviewed, dictated and finalized at location A.
--- NOTE | ~2024-11-12 | CT_ITS ---
EXAMINATION: CT abdomen pelvis wo con DATE: 11/12/2024 11:40 INDICATION: Abdominal pain. Liver cirrhosis. Distention. TECHNIQUE: Computed tomography (CT) of the abdomen and pelvis was performed without intravenous contr ast. Automated exposure control and iterative reconstruction technique were employed. The dose-length product was 1297.95 mGy-cm. COMPARISON: CT dated 10/05/2024 FINDINGS: Moderate atelectasis in the left lower lobe. Heart size is normal. No pericardial or pleural effusion . Left gynecomastia. Shrunken nodular cirrhotic liver. Multiple calcified gallstones in the dependent aspect of the normal-appearing gallbladder. A few small splenic calcifications consistent with old g ranulomatous disease. Pancreas, bilateral adrenal glands and right adrenal gland are normal. There ar e couple left adrenal nodules, the larger measuring 2.4 cm and which is been present since 05/11/2020 consistent with adenomas. Again seen is a large recanalized umbilical vein and prominent gastrosplen ic and left splenorenal collaterals consistent with portal venous hypertension. No bowel obstruction. Normal retrocecal appendix. Bladder is normal. Large amount of ascites scattered throughout the abdo men and pelvis. No pathologically enlarged abdominal or pelvic lymphadenopathy. Mild lumbar dextrocur vature with severe spondylosis. IMPRESSION: 1. Cirrhotic liver with portosystemic collaterals consistent with portal venous hypertension and larg e amount of ascites. 2. Cholelithiasis. Reviewed, dictated and finalized at location A. IMPRESSION: 1. Cirrhotic liver with portosystemic collaterals consistent with portal venous hypertension and large amount of ascites. 2. Cholelithiasis.
--- NOTE | 2024-11-12 10:09 | ECG_ITS ---
Test Date: 2024-11-12 10:16:57 Measurements Intervals [place] Rate: 101 P: -8 [place]: 94 QRS: 30 QRSD: 86 T: 55 QT: 313 QTc: 407 Interpretive Statements SINUS TACHYCARDIA WITH SHORT [place] INTERVAL WITH VENTRICULAR PREMATURE COMPLEX LOW QRS VOLTAGE - DIFFUSE LEADS CANNOT R/O SEPTAL INFARCT, AGE INDETERMINATE BORDERLINE ST-T WAVE ABNORMALITY- LAT/HIGH LAT LEADS BASELINE ARTIFACT- I, II, AVR, V1-V2 ABNORMAL ECG Compared to ECG 10/05/2024 07:52:50 Short [place] interval now present Electronically Signed On 11-12-2024 13:38:18 CDT by Anthony Kaiser D.O.
[2024-11-12 10:40] LABS: Basophils Percent Auto 0.2 % (0.2-1.2); Eosinophils Absolute Auto 0.3 K/mm3 (0-0.3); Eosinophils Percent Auto 3.3 % (0-4.4); Hematocrit 25.8 % (42.0-52.0); Hemoglobin 8.6 g/dL (14.0-18.0); Immature Granulocyte Absolute 0.09 K/mm3 (0.00-0.031); Lymphocytes Absolute Auto 1.54 K/mm3 (0.9-3.2); Lymphocytes Percent Auto 17.7 % (18.3-44.2); Mean Corpuscular HGB Conc 33.3 g/dl (32-36); Mean Corpuscular Hemoglobin 33.9 pg (26-34); Mean Corpuscular Volume 101.6 fl (80-100); Mean Platelet Volume 8.8 fl (7.4-10.4); Monocytes Absolute Auto 1.2 K/mm3 (0.1-0.6); Monocytes Percent Auto 13.2 % (2.6-8.5); Neutrophils Absolute Auto 5.6 K/mm3 (1.3-6.7); Neutrophils Percent Auto 64.6 % (45.5-73.1); Platelet Count Result 115 k/mm3 (150-375); Red Blood Count 2.54 M/mm3 (4.6-6.20); Red Cell Distribution Width 18.2 % (11.5-14.5); White Blood Count 8.7 K/mm3 (4.5-10.0)
[2024-11-12] MEDS: MIDODRINE HCL 10 MG TABLET PO (10:45)
[2024-11-12 10:48] LABS: Alanine Aminotransferase 30 U/L (6-50); Albumin Level 2.4 g/dL (3.5-5.1); Alkaline Phosphatase 132 U/L (38-126); Anion Gap 9 mmol/L (4-12); Aspartate Amino Transferase 69 U/L (17-59); Blood Urea Nitrogen 32 mg/dL (9-20); Calcium 8.5 mg/dL (8.4-10.2); Carbon Dioxide 18 mmol/L (22-30); Chloride 100 mmol/L (98-107); Creatine Kinase 99 U/L (55-170); Estimated CRCL calculation 37 ml/min; Estimated Glomerular Filt Rate 41; Glucose 112 mg/dL (65-110); Lipase 231 U/L (23-300); Magnesium 1.9 mg/dL (1.6-2.3); Phosphorus 3.1 mg/dL (2.5-4.5); Potassium 3.8 mmol/L (3.4-5.0); Sodium 127 mmol/L (137-145); Total Protein 5.8 g/dL (6.3-8.2)
[2024-11-12 10:48] LABS: Lactic Acid Reflex 2.5 mmol/L (0.7-2.0)
[2024-11-12 10:49] LABS: Ammonia 121 umol/L (9-30); Ethanol < 10 mg/dL (<10)
[2024-11-12 10:52] LABS: INR 2.3
[2024-11-12 10:53] LABS: Partial Thromboplastin Time 42.5 Seconds (22.3-36.8)
--- NOTE | 2024-11-12 11:04 | PC.NURSE ---
First set of blood cultures drawn by ERP.
[2024-11-12] MEDS: SODIUM CHLORIDE 0.9% IV 1,000 ML 999 ML IV CONT ×3 (11:13→15:12)
--- NOTE | 2024-11-12 11:13 | ED_ITS ---
HPI - General Adult General Chief complaint: Back Pain/Injury Stated complaint: slightly altered History of Present Illness HPI narrative: This is a 64-year-old male history of liver cirrhosis presenting for altered mental status. Per EMS the patient has not gotten out of bed for the last 2 days. Patient states he has been having lower back pain which is chronic and abdominal pain which is preventing him from moving. He is denying fevers chills chest pain breathing nausea vomiting or diarrhea. Last paracentesis was 1 month ago in our emergency department. Patient is still actively drinking and last drink was yesterday. He does get the shakes when he stops drinking. Related Data Home Medications ?Medication ?Instructions ?Recorded ?Confirmed ?Last Taken ?Type vitamin B comp and C no.3 15 mg-10 1 cap PO WEEKLY 01/21/23 10/05/24 Unknown History mg-50 mg-5 mg-300 mg capsule Allergies Allergy/AdvReac Type Severity Reaction Status Date / Time No Known Allergies Allergy Verified 11/12/24 10:09 [facility] Past Medical History Medical History Chronic anemia Spina bifida occulta Alcohol withdrawal seizure BPH (benign prostatic hyperplasia) Hyperlipidemia Alcoholism Liver cirrhosis Hypertension Surgical History Surgical History Status post left foot surgery H/O hemorrhoidectomy S/P shoulder replacement Family History Family History Mother Family history of diabetes mellitus in first degree relative Family history of coronary artery disease Heart disease Social History Social History Social History: the patient is disabled and he lives with his . He does not have any biological children but she has 2 children. The patient stated that he quit drinking alcohol about 2-3 months ago. Otherwise he would binge drink beer quite often. He denies any illicit drugs. The patient stated he still and about 3 or 4 cigarettes a day. The patient is listed as a full code. His is the durable power attorney general for healthcare. Smoking packs per day: 0.5 Smoking cigarettes per day: 10.0 Years smoked: 50 Smoking pack-years: 25.00 Smoking status: Current every day smoker Tobacco type: cigarettes Second hand tobacco smoke exposure: Yes Alcohol intake: current Drinks per week: 4 Substance use: never Substance use type: does not use Do You Feel Safe in your Home?: Yes Lack of Transportation: No Lack of Food: Never True Current Housing: I Have Housing Concerned About Future Housing: Decline to Answer Difficulty Paying Gas/Electric Bills: Decline to Answer Difficulty Paying for Meds: Decline to Answer Currently Unemployed: Decline to Answer Education: Decline to Answer Difficulty w/ Childcare or Family Care: Decline to Answer Living arrangements: with family Additional occupation/education comments: Disability Gender identity (if verbalized by the patient): Male Spiritual care concerns: No Agree to blood products: Yes Exam 2 Narrative: APPEARANCE: Patient appears significantly older than his stated age. Jaundiced, truncal obesity with muscle wasting extremities Head: atraumatic. EYES: EOMI, jaundice NOSE: Atraumatic NECK: Trachea midline RESPIRATORY: No increased rate of breathing clear to auscultation CARDIOVASCULAR: RRR, no peripheral edema ABDOMINAL: Distended, nontender MUSCULOSKELETAl: No obvious deformities NEURO: Alert. Moving 4/4 extremities SKIN:: Spider angioma over his chest PSYCHIATRIC: Normal affect Course Vital Signs Vital signs: Vital Signs Temperature 97.5 F L 11/12/24 10:00 Pulse Rate 101 H 11/12/24 10:00 Respiratory Rate 16 11/12/24 10:00 Blood Pressure 86/60 L 11/12/24 10:00 Pulse Oximetry 100 11/12/24 10:00 Temperature 97.5 F L 11/12/24 10:00 Pulse Rate 95 11/12/24 17:15 Respiratory Rate 9 L 11/12/24 17:15 Blood Pressure 69/45 L 11/12/24 17:00 Pulse Oximetry 100 11/12/24 17:15 Oxygen Delivery Nasal Cannula 11/12/24 14:46 Oxygen Flow Rate 2 11/12/24 14:46 Procedures Paracentesis Paracentesis #1: Paracentesis Date: 11/12/24 Paracentesis Time: 13:17 Indication: possible spontaneous bacterial peritonitis Procedure: diagnostic paracentesis (Therapuetic and Diagnosit) Location: RLQ Local Anesthetic: lidocaine 1% Amount of anesthesia used (mL): 5 Bedside Ultrasound Used: yes, real-time guidance Preparation: sterile prep and drape Amount of fluid obtained (mL): 3,000 Fluid: clear (Yellow) Size of Needle Used: 8 Post Procedure Exam: awake, alert, normal HR and normal SpO2 Patient Tolerated Procedure: well Complications: none Medical Decision Making MDM Narrative Medical decision making narrative: -Course: 64-year-old male history of alcoholic liver cirrhosis presenting with altered mental status, belly pain and lower back pain. Sepsis workup obtained. On arrival patient is confused. He is hypotensive at 86/60. He is not taking his midodrine over last several days was given 10 mg of p.o. midodrine. He is given 1 L lactated Ringer's and albumin x4 Q6H. A diagnostic and therapeutic paracentesis was for performed and studies is been sent to laboratory for further evaluation. Started on 2 g of ceftriaxone to cover SBP while results return. Ammonia was elevated at 120. Given his confusion will start him on lactulose for hepatic encephalopathy. This point we attempted admission to our hospital which was declined due to his severe liver failure. We started the transfer process, however the patient started to become very agitated, more confused and started pulling at his lines and trying to get out of bed he was given Valium for suspected alcohol withdrawal. Despite fluid resuscitation and albumin infusion the patient is persistently hypotensive at 70/50. Goals of care were discussed with the patient's brother, mother and who are all at bedside. The patient's quality of life has continued to close declined as his liver disease has worsened. He is still drinking despite being bed-bound. Per his mother he said knew he was dieing and he does not want to continue. At this point they would like patient to be made comfort measures only. Patient was given morphine and Ativan. Placed on a morphine drip for pain. Patient will be admitted to the [facility] for end of life hospice care. -DDX includes but is not limited to: SBP, decompensated liver failure, sepsis, UTI dehydration, pneumonia -Co-morbidities complicating care: Alcoholic liver cirrhosis, chronic back pain Independent EKG interpretation: Rhythm [sinus], Rate [101], [place] -[normal], [place] -[normal], QRS [narrow], QTC [normal], T waves -[negative for concerning inversions], ST Segments - [Negative for concerning elevations] Final interpretations: Sinus tach Vital Signs Vital Signs: Vital Signs Temperature 97.5 F L 11/12/24 10:00 Pulse Rate 101 H 11/12/24 10:00 Respiratory Rate 16 11/12/24 10:00 Blood Pressure 86/60 L 11/12/24 10:00 Pulse Oximetry 100 11/12/24 10:00 Temperature 97.5 F L 11/12/24 10:00 Pulse Rate 95 11/12/24 17:15 Respiratory Rate 9 L 11/12/24 17:15 Blood Pressure 69/45 L 11/12/24 17:00 Pulse Oximetry 100 11/12/24 17:15 Oxygen Delivery Nasal Cannula 11/12/24 14:46 Oxygen Flow Rate 2 11/12/24 14:46 Lab Data 11/12/24 10:30 11/12/24 10:33 Labs: Lab Results 11/12/24 11/12/24 11/12/24 Range/Units 10:30 10:33 12:45 WBC 8.7 (4.5-10.0) K/mm3 RBC 2.54 L (4.6-6.20) M/mm3 Hgb 8.6 L (14.0-18.0) g/dL Hct 25.8 L (42.0-52.0) % MCV 101.6 H (80-100) fl MCH 33.9 (26-34) pg MCHC 33.3 (32-36) g/dl RDW 18.2 H (11.5-14.5) % Plt Count 115 L (150-375) k/mm3 MPV 8.8 (7.4-10.4) fl Immature Gran % (Auto) 1.0 H (0-0.5) % Neut % (Auto) 64.6 (45.5-73.1) % Lymph % (Auto) 17.7 L (18.3-44.2) % Mccracken % (Auto) 13.2 H (2.6-8.5) % Eos % (Auto) 3.3 (0-4.4) % Baso % (Auto) 0.2 (0.2-1.2) % Lymph # (Auto) 1.54 (0.9-3.2) K/mm3 M[place]racken # (Auto) 1.2 H (0.1-0.6) K/mm3 Eos # (Auto) 0.3 (0-0.3) K/mm3 Baso # (Auto) 0.0 (0.0-0.1) K/mm3 Abs Immat Gran (auto) 0.09 H (0.00-0.031) K/mm3 Absolute Neuts (auto) 5.6 (1.3-6.7) K/mm3 Absolute Nucleated RBC 0.000 (0.0-0.012) K/mm3 Nucleated RBC % 0.0 (0.0-0.2) % PT 25.0 H (11.1-14.7) Seconds INR 2.3 APTT 42.5 H (22.3-36.8) Seconds Sodium 127 L (137-145) mmol/L Potassium 3.8 (3.4-5.0) mmol/L Chloride 100 (98-107) mmol/L Carbon Dioxide 18 L (22-30) mmol/L Anion Gap 9 (4-12) mmol/L BUN 32 H D (9-20) mg/dL Creatinine 1.68 H (0.7-1.3) mg/dL Estim Creat Clear Calc 37 ml/min Estimated GFR 41 L (59 - ) Glucose 112 H (65-110) mg/dL POC Capillary Glucose (65-105) mg/dl Lactic Acid 2.5 H 2.2 H (0.7-2.0) mmol/L Calcium 8.5 (8.4-10.2) mg/dL Phosphorus 3.1 (2.5-4.5) mg/dL Magnesium 1.9 (1.6-2.3) mg/dL Total Bilirubin 5.0 H (0.2-1.3) mg/dL AST 69 H (17-59) U/L ALT 30 (6-50) U/L Alkaline Phosphatase 132 H (38-126) U/L Ammonia 121 H (9-30) umol/L Total Creatine Kinase 99 (55-170) U/L Total Protein 5.8 L (6.3-8.2) g/dL Albumin 2.4 L (3.5-5.1) g/dL Lipase 231 (23-300) U/L Urine Color (Yellow) Urine Appearance (Clear) Urine pH (5.0-9.0) Ur Specific [place] (1.001-1.035) Urine Protein (Negative) mg/dL Urine Glucose (UA) (Negative) mg/dL Urine Ketones (Negative) mg/dL Ur Blood (Man) (Negative) Urine Nitrate (Negative) Urine Bilirubin (Negative) Urine Urobilinogen (<2.0) mg/dL Leukocyte Esterase Rfl (Negative) CHINMAY/UL Urine RBC (0-2) /hpf Urine WBC (0-3) /hpf Ur Squamous Epith Cells (Few) /hpf Urine Bacteria /hpf Urine Casts Hyaline Casts (None) /lpf Peritoneal Source Peritoneal Color (Colorless) Peritoneal Appearance (Clear) Peritoneal RBC (0-52315) /uL Periton Nuc Cells (0-500) /uL Periton Neutrophils (0-25) % Periton Lymphocytes % Peritoneal Monocytes % Periton Mesothelial % Periton Macrophages % Peritoneal Tot Protein Peritoneal Albumin Peritoneal LDH Peritoneal Glucose Peritoneal Amylase Urine Opiates Screen (Negative) Urine Methadone Screen (Negative) Ur Barbiturates Screen (Negative) Ur Phencyclidine Scrn (Negative) Ur Amphetamine Screen (Negative) U Benzodiazepines Scrn (Negative) Urine Cocaine Screen (Negative) U Cannabinoids Screen (Negative) Ethyl Alcohol < 10 (<10) mg/dL Influenza A (RT-PCR) Negative (Negative) Influenza B (RT-PCR) Negative (Negative) RSV (RT-PCR) Negative (Negative) SARS-CoV-2 RNA (RT-PCR) Negative (Negative) Blood Type A Positive Antibody Screen Negative 11/12/24 11/12/24 11/12/24 Range/Units 12:51 14:08 14:18 WBC (4.5-10.0) K/mm3 RBC (4.6-6.20) M/mm3 Hgb (14.0-18.0) g/dL Hct (42.0-52.0) % MCV (80-100) fl MCH (26-34) pg MCHC (32-36) g/dl RDW (11.5-14.5) % Plt Count (150-375) k/mm3 MPV (7.4-10.4) fl Immature Gran % (Auto) (0-0.5) % Neut % (Auto) (45.5-73.1) % Lymph % (Auto) (18.3-44.2) % Mccracken % (Auto) (2.6-8.5) % Eos % (Auto) (0-4.4) % Baso % (Auto) (0.2-1.2) % Lymph # (Auto) (0.9-3.2) K/mm3 Mccracken # (Auto) (0.1-0.6) K/mm3 Eos # (Auto) (0-0.3) K/mm3 Baso # (Auto) (0.0-0.1) K/mm3 Abs Immat Gran (auto) (0.00-0.031) K/mm3 Absolute Neuts (auto) (1.3-6.7) K/mm3 Absolute Nucleated RBC (0.0-0.012) K/mm3 Nucleated RBC % (0.0-0.2) % PT (11.1-14.7) Seconds INR APTT (22.3-36.8) Seconds Sodium (137-145) mmol/L Potassium (3.4-5.0) mmol/L Chloride (98-107) mmol/L Carbon Dioxide (22-30) mmol/L Anion Gap (4-12) mmol/L BUN (9-20) mg/dL Creatinine (0.7-1.3) mg/dL Estim Creat Clear Calc ml/min Estimated GFR (59 - ) Glucose (65-110) mg/dL POC Capillary Glucose 95 (65-105) mg/dl Lactic Acid (0.7-2.0) mmol/L Calcium (8.4-10.2) mg/dL Phosphorus (2.5-4.5) mg/dL Magnesium (1.6-2.3) mg/dL Total Bilirubin (0.2-1.3) mg/dL AST (17-59) U/L ALT (6-50) U/L Alkaline Phosphatase (38-126) U/L Ammonia (9-30) umol/L Total Creatine Kinase (55-170) U/L Total Protein (6.3-8.2) g/dL Albumin (3.5-5.1) g/dL Lipase (23-300) U/L Urine Color Dark yellow (Yellow) Urine Appearance Clear (Clear) Urine pH 6.0 (5.0-9.0) Ur Specific [place] 1.014 (1.001-1.035) Urine Protein Negative (Negative) mg/dL Urine Glucose (UA) Negative (Negative) mg/dL Urine Ketones Trace H (Negative) mg/dL Ur Blood (Man) Trace (Negative) Urine Nitrate Negative (Negative) Urine Bilirubin 1+ H (Negative) Urine Urobilinogen 1.0 (<2.0) mg/dL Leukocyte Esterase Rfl Trace H (Negative) CHINMAY/UL Urine RBC 6-10 H (0-2) /hpf Urine WBC 0-5 (0-3) /hpf Ur Squamous Epith Cells Occasional (Few) /hpf Urine Bacteria None seen /hpf Urine Casts >20 Hyaline Casts Present (None) /lpf Peritoneal Source Peritoneal fluid Peritoneal Color Yellow (Colorless) Peritoneal Appearance Clear (Clear) Peritoneal RBC < 2000 (0-10197) /uL Periton Nuc Cells 21 (0-500) /uL Periton Neutrophils 3 (0-25) % Periton Lymphocytes 55 % Peritoneal Monocytes 2 % Periton Mesothelial 8 % Periton Macrophages 32 % Peritoneal Tot Protein Pending Peritoneal Albumin Pending Peritoneal LDH Pending Peritoneal Glucose Pending Peritoneal Amylase Pending Urine Opiates Screen Positive A (Negative) Urine Methadone Screen Negative (Negative) Ur Barbiturates Screen Negative (Negative) Ur Phencyclidine Scrn Negative (Negative) Ur Amphetamine Screen Negative (Negative) U Benzodiazepines Scrn Positive A (Negative) Urine Cocaine Screen Negative (Negative) U Cannabinoids Screen Negative (Negative) Ethyl Alcohol (<10) mg/dL Influenza A (RT-PCR) (Negative) Influenza B (RT-PCR) (Negative) RSV (RT-PCR) (Negative) SARS-CoV-2 RNA (RT-PCR) (Negative) Blood Type Antibody Screen Critical Care Time Critical Care Time Critical Care Time: Yes Total Critical Care Time: 35 Discharge Plan Discharge Clinical Impression: Acute hepatic encephalopathy, Ascites, Abdominal pain, Acute liver failure, Admission for end of life care Patient Disposition: Still a Patient Condition: Serious Patient Language: Slovak Prescriptions: No Action vitamin B comp and C no.3 [id number] mg capsule 1 cap PO WEEKLY Rx Instructions: give with food (meal/snack) baclofen 20 mg tablet 20 mg PO QHS Qty: 30 5RF Rx Instructions: For muscle cramps magnesium oxide 400 mg (241.3 mg magnesium) Tablet 400 mg PO QAM Qty: 30 0RF amoxicillin 500 mg Capsule 500 mg PO Q8HR 5 Days Qty: 15 0RF midodrine 10 mg Tablet 10 mg PO TID 30 Days Qty: 90 0RF famotidine [Pepcid] 20 mg tablet 20 mg PO BID Qty: 30 0RF tamsulosin 0.4 mg capsule 0.4 mg PO DAILY Qty: 90 2RF allopurinol 300 mg tablet 150 mg PO DAILY Qty: 45 6RF mupirocin 2 % ointment 1 applic topical BID Qty: 22 1RF furosemide 40 mg tablet See Rx Instructions .ROUTE .COMPLEX Qty: 90 2RF Dose Instruction: TAKE 1 TABLET BY MOUTH DAILY Rx Instructions: TAKE 1 TABLET BY MOUTH DAILY alprazolam 0.5 mg tablet 0.5 mg PO QID PRN (Reason: anxiety) Qty: 360 1RF oxycodone 10 mg tablet See Rx Instructions PO TID PRN (Reason: pain) Qty: 75 0RF Rx Instructions: Take 1/2 to 1 tablet orally three times a day PRN; spironolactone [Aldactone] 50 mg tablet 100 mg PO 1600 Qty: 180 1RF Follow-up/Referrals: Ramirez Renae MD [Primary Care Provider] -
[2024-11-12 11:17] LABS: Influenza A QL RT-PCR Negative (Negative); Influenza B QL RT-PCR Negative (Negative); RSV RNA, RT-PCR Negative (Negative); SARS-CoV-2 RNA PCR Negative (Negative)
[2024-11-12] MEDS: ALBUMIN HUMAN 25% 25 GM/100 ML 100 ML IVPB (11:45)
[2024-11-12] MEDS: HYDROmorphone HCL INJ (*CRX) 2 MG/ML VIAL 1 MG IV PUSH (12:04)
[2024-11-12 12:36] LABS: Reflex Lactic Acid Yes or No Add Lactic
[2024-11-12] MEDS: LACTULOSE 20 GM/30 ML UDC PO (13:09)
[2024-11-12 13:24] LABS: Lactic Acid 2.2 mmol/L (0.7-2.0)
--- NOTE | 2024-11-12 13:31 | PC.NURSE ---
Tolerated paracentesis well. 3 liters of fluid collected.
[2024-11-12 13:33] LABS: Appearance Peritoneal Fluid Clear (Clear); Color Peritoneal Fluid Yellow (Colorless); Neutrophils Peritoneal Fluid 3 % (0-25); Nucleated Cells Peritoneal Flu 21 /uL (0-500); RBC Peritoneal Fluid < 2000 /uL (0-10000); Source Peritoneal Fluid Peritoneal Fluid
[2024-11-12 13:34] LABS: Lymphocytes Peritoneal Fluid 55 %; Macrophages Peritoneal Fluid 32 %; Mesothelial Cells Peritoneal Fluid 8 %; Monocytes Peritoneal Fluid 2 %
[2024-11-12] MEDS: cefTRIAXone 2 GM/NS 100 ML 2 GM/100 ML BAG IVPB (14:03)
--- NOTE | 2024-11-12 14:17 | PC.NURSE ---
Pt becoming more confused. Attempting to pull at IV.
[2024-11-12 14:20] LABS: Glucose Point of Care 95 mg/dl (65-105)
[2024-11-12] MEDS: diazePAM INJ (*CRX) 10 MG/2 ML SYRINGE IV PUSH (14:22)
[2024-11-12 14:33] LABS: Add Urine Microscopic? YES; Appearance Urine Clear (Clear); Bacteria Urine None Seen /hpf; Bilirubin Urine 1+ (Negative); Blood Urine Trace (Negative); Color Urine Dark Yellow (Yellow); Glucose Urine UA Negative (Negative); Hyaline Casts Urine Present /lpf; Ketones Urine Trace mg/dL (Negative); Leukocyte Esterase Ur Trace LEU/UL (Negative); Nitrate Urine Negative (Negative); Non Pathogenic Casts >20; Protein Urine Negative (Negative); Specific Grav Ur 1.014 (1.001-1.035); Squamous Epithelial Cell Urine Occasional /hpf (Few); WBC Urine 0-5 /hpf (0-3)
[2024-11-12 14:44] LABS: Amphetamine Screen Urine Negative (Negative); Barbiturate Screen Urine Negative (Negative); Benzodiazepines Screen Urine Positive (Negative); Cannabinoid Screen Urine Negative (Negative); Cocaine Screen Urine Negative (Negative); Methadone Screen Urine Negative (Negative); Opiate Screen Urine Positive (Negative); Phencyclidine Screen Urine Negative (Negative)
--- NOTE | 2024-11-12 14:47 | PC.NURSE ---
ERP spoke with family on phone regarding possible hospice. Family will come to hospital to speak further.
[2024-11-12] MEDS: LORazepam INJ (*CRX) 2 MG/ML VIAL IV PUSH (15:35)
[2024-11-12] MEDS: MORPHINE SULFATE (*CRX) 4 MG/ML INJ IV PUSH (15:35)
[2024-11-12] MEDS: MORPHINE 50 MG/NS 100ML (*CRX) 50 MG/100 ML BAG 8 MG IV CONT (16:41)
[2024-11-16 19:48] LABS: Total Protein Peritoneal Fluid <3.0 g/dL
[2024-11-17 03:43] LABS: Albumin Peritoneal Fluid 0.3 g/dL; Amylase Peritoneal Fluid <10 U/L; Glucose Peritoneal Fluid 117 mg/dL
[2024-11-17 17:54] LABS: LDH Peritoneal Fluid 15 U/L (<63)
== END 2024-11-12 18:53 | disposition hospice, inpatient (51) ==
PROVIDERS: Emergency Provider Emergency Medicine; PCP Family Medicine Adolescent Medicine
DX: K76.82 Hepatic encephalopathy (principal); K72.00 Acute and subacute hepatic failure without coma; K70.31 Alcoholic cirrhosis of liver with ascites; Z51.5 Encounter for palliative care; Z20.822 Contact with and (suspected) exposure to COVID-19; I10 Essential (primary) hypertension; E78.5 Hyperlipidemia, unspecified; N40.0 Benign prostatic hyperplasia without lower urinary tract symptoms; D64.9 Anemia, unspecified; F10.20 Alcohol dependence, uncomplicated; F17.210 Nicotine dependence, cigarettes, uncomplicated; Q76.0 Spina bifida occulta; Z96.619 Presence of unspecified artificial shoulder joint; Z79.899 Other long term (current) drug therapy; R00.0 Tachycardia, unspecified; R94.31 Abnormal electrocardiogram [ECG] [EKG]; K80.20 Calculus of gallbladder without cholecystitis without obstruction
CPT/HCPCS: 36415; 49082; 71045; 74176; 80053; 80307; 81001; 82042; 82077; 82140; 82150; 82550; 82945; 82948; 83605; 83615; 83690; 83735; 84100; 84157; 85025; 85610; 85730; 86850; 86900; 86901; 87040; 87070; 87075; 87205; 87637; 89051; 93005; 96361; 96365; 96375; 96376; 99285; A9270; J0696; J1171; J2060; J2270; J3360; J7030; P9047

== ENCOUNTER 2024-11-12 18:54 | HOS | payer OTHER, MEDICARE, MEDICAID, SELFPAY ==
[2024-11-12 22:38] VITALS: PULSE 80; RESP 5
[2024-11-12] MEDS: HYDROmorphone HCL/PF (*CRX) 50 MG in SODIUM CHLORIDE 0.9% IV 95 ML IV CONT (22:38)
[2024-11-13] MEDS: HYDROmorphone HCL INJ (*CRX) 2 MG/ML VIAL IV PUSH (00:22)
[2024-11-13] MEDS: ARTIFICIAL TEARS OPHTH SOLN 15 ML BOTTLE 1 DROP EACH EYE ×3 (00:22→21:17)
[2024-11-13] MEDS: diazePAM INJ (*CRX) 10 MG/2 ML SYRINGE 5 MG IV PUSH ×5 (00:22→23:59)
[2024-11-13 01:28] VITALS: O2SAT 92
[2024-11-13 07:35] VITALS: RESP 2
--- NOTE | 2024-11-13 14:14 | P.HP_ITS ---
H&P: HPI History of Present Illness Date/Time: 11/13/24 14:14 Chief Complaint: Uncontrolled pain and restlessness Narrative: This 64-year-old gentleman with known alcohol-induced cirrhosis with ascites and hepatic encephalopathy was last discharged from [facility] on October 08 for urinary tract infection. At that time he underwent a large volume 5 L paracentesis and tolerated it well. He had fallen at that time injured his back as well as fractured ribs. He was doing fairly well at home although still drinking on a regular basis when he had increased back pain and was unable to get out of bed for the 2 days prior to present to the emergency department on November 12. He was confused. Because of his advanced liver disease and deteriorating quality of life and poor functional status his family opted for inpatient hospice service for symptom management. Review of Systems Review of Systems: ROS unobtainable: Yes unobtainable due to medical condition PMFSH Past Medical History Medical History Chronic anemia Spina bifida occulta Alcohol withdrawal seizure BPH (benign prostatic hyperplasia) Hyperlipidemia Alcoholism Liver cirrhosis Hypertension Surgical History Surgical History Status post left foot surgery H/O hemorrhoidectomy S/P shoulder replacement Family History Family History Mother Family history of diabetes mellitus in first degree relative Family history of coronary artery disease Heart disease Social History Social History (Updated 11/13/24 @ 14:25 by Ko Singh MD) Social History: He was disabled since about age 59 and he lives with his . He does not have any biological children but she has 2 children. Actively drinking. He denies any illicit drugs. He continues to smoke about 3 or 4 cigarettes a day. His is the durable power compliance attorney for healthcare. Code Status: DNR. Smoking packs per day: 0.5 Smoking cigarettes per day: 10.0 Years smoked: 50 Smoking pack-years: 25.00 Smoking status: Current every day smoker Tobacco type: cigarettes Second hand tobacco smoke exposure: Yes Alcohol intake: current Drinks per week: 4 Substance use: never Substance use type: does not use Do You Feel Safe in your Home?: Yes Lack of Transportation: No Lack of Food: Never True Current Housing: I Have Housing Concerned About Future Housing: Decline to Answer Difficulty Paying Gas/Electric Bills: Decline to Answer Difficulty Paying for Meds: Decline to Answer Currently Unemployed: Decline to Answer Education: Decline to Answer Difficulty w/ Childcare or Family Care: Decline to Answer Living arrangements: with family Additional occupation/education comments: Disability Gender identity (if verbalized by the patient): Male Spiritual care concerns: No Agree to blood products: Yes Meds Home Medications and Allergies Home Medications ?Medication ?Instructions ?Recorded ?Confirmed ?Type magnesium oxide 400 mg (241.3 mg 400 mg PO QAM #30 tabs 05/04/20 10/05/24 Rx magnesium) tablet famotidine 20 mg tablet (Pepcid) 20 mg PO BID #30 tabs 07/06/20 10/05/24 Rx vitamin B comp and C no.3 15 mg-10 1 cap PO WEEKLY 01/21/23 10/05/24 History mg-50 mg-5 mg-300 mg capsule baclofen 20 mg tablet 20 mg PO QHS #30 tabs 10/12/23 10/05/24 Rx tamsulosin 0.4 mg capsule 0.4 mg PO DAILY #90 caps 01/18/24 10/05/24 Rx allopurinol 300 mg tablet 150 mg (1/2 x 300 mg) PO DAILY #45 02/12/24 10/05/24 Rx tabs mupirocin 2 % topical ointment 1 applic topical BID #22 grams 03/07/24 10/05/24 Rx furosemide 40 mg tablet See Rx Instructions .Route 07/27/24 10/05/24 Rx .COMPLEX #90 tabs alprazolam 0.5 mg tablet 0.5 mg PO QID PRN anxiety #360 tabs 09/14/24 10/05/24 Rx oxycodone 10 mg tablet See Rx Instructions PO TID PRN 09/29/24 10/05/24 Rx pain #75 tabs spironolactone 50 mg tablet 100 mg (2 x 50 mg) PO 1600 #180 10/05/24 10/05/24 Rx (Aldactone) tabs amoxicillin 500 mg capsule 500 mg PO Q8HR 5 days #15 caps 10/08/24 Rx midodrine 10 mg tablet 10 mg PO TID 30 days #90 tabs 10/08/24 Rx Allergies Allergy/AdvReac Type Severity Reaction Status Date / Time No Known Allergies Allergy Verified 11/12/24 10:09 Vital Signs Vital Signs - 24 hr 11/12/24 22:38 11/13/24 01:28 11/13/24 07:35 Pulse Rate 80 Respiratory Rate 5 L 2 L Pulse Oximetry 92 Oxygen Delivery Nasal Cannula Nasal Cannula Oxygen Flow Rate 2 2 Fraction of Inspired Oxygen 11/13/24 08:37 Pulse Rate Respiratory Rate Pulse Oximetry Oxygen Delivery Nasal Cannula Oxygen Flow Rate 2 Fraction of Inspired Oxygen 28 Exam Narrative: HEENT: Pharyngeal mucosa dry NECK: No JVD, adenopathy, or thyromegaly CHEST: Normal effort, coarse breath sounds bilaterally HEART: NL S1/S2, regular, no murmur ABDOMEN: BS+, soft, nontender, no mass, no bruits EXTREMITIES: No edema NEUROLOGIC: CN intact and symmetric to inspection. MUSCULOSKELETAL: No gross deformity to visual inspection PSYCH: Unresponsive to verbal or tactile stimuli Assessment and Plan Assessment and plan (1) Hospice care: Code(s): Z51.5 - Encounter for palliative care Status: Acute Assessment and Plan: * Meet inpatient hospice criteria due to requiring continuous IV hydromorphone for control of pain and restlessness * Scheduled diazepam for prevention of alcohol withdrawal seizures * P.r.n. palliative regimen ordered * 11/13/2024: Although symptoms are well managed she is hypotensive and too unstable for transfer (2) Cirrhosis of liver with ascites: Qualifiers: Hepatic cirrhosis type: alcoholic cirrhosis Qualified Code(s): K70.31 - Alcoholic cirrhosis of liver with ascites Code(s): K74.60 - Unspecified cirrhosis of liver; R18.8 - Other ascites Status: Acute (3) Chronic anemia: Code(s): D64.9 - Anemia, unspecified Status: Chronic (4) Low back pain, unspecified: Code(s): M54.50 - Low back pain, unspecified Status: Acute (5) Alcohol abuse: Code(s): F10.10 - Alcohol abuse, uncomplicated Status: Acute
[2024-11-13 17:10] VITALS: BP 62/50; PULSE 89; RESP 2; O2SAT 96
[2024-11-13 19:47] VITALS: PULSE 84; RESP 2; TEMP 36; O2SAT 98
[2024-11-13 20:00] VITALS: PULSE 84; RESP 2; O2SAT 98
[2024-11-14] MEDS: diazePAM INJ (*CRX) 10 MG/2 ML SYRINGE 5 MG IV PUSH ×4 (06:54→23:27)
[2024-11-14 07:46] VITALS: BP 64/35; PULSE 96; RESP 2; TEMP 36.3; O2SAT 87
[2024-11-14 08:17] VITALS: O2SAT 99
[2024-11-14] MEDS: ARTIFICIAL TEARS OPHTH SOLN 15 ML BOTTLE 1 DROP EACH EYE ×2 (08:17→20:27)
[2024-11-14] MEDS: GLYCOPYRROLATE INJ (*SP) 0.2 MG/ML VIAL 0.1 MG IV PUSH (15:37)
--- NOTE | 2024-11-14 16:46 | P.PNIM_ITS ---
Progress Note: A&P Assessment and Plan (1) Hospice care: Code(s): Z51.5 - Encounter for palliative care Status: Acute Assessment and Plan: * Meet inpatient hospice criteria due to requiring continuous IV hydromorphone for control of pain and restlessness * Scheduled diazepam for prevention of alcohol withdrawal seizures * P.r.n. palliative regimen ordered * 11/13/2024: Although symptoms are well managed she is hypotensive and too unstable for transfer * 11/14/2024: Hypotensive, prolonged apneas, appears imminent (2) Cirrhosis of liver with ascites: Qualifiers: Hepatic cirrhosis type: alcoholic cirrhosis Qualified Code(s): K70.31 - Alcoholic cirrhosis of liver with ascites Code(s): K74.60 - Unspecified cirrhosis of liver; R18.8 - Other ascites Status: Acute (3) Chronic anemia: Code(s): D64.9 - Anemia, unspecified Status: Chronic (4) Low back pain, unspecified: Code(s): M54.50 - Low back pain, unspecified Status: Acute (5) Alcohol abuse: Code(s): F10.10 - Alcohol abuse, uncomplicated Status: Acute Subjective Date/time seen: 11/14/24 16:46 Interval history: Remains comfortable. Breaths at 2 per min. Review of Systems Review of Systems: ROS unobtainable: Yes unobtainable due to medical condition Exam Narrative: HEENT: Pharyngeal mucosa dry NECK: No JVD, adenopathy, or thyromegaly CHEST: Normal effort, coarse breath sounds bilaterally HEART: NL S1/S2, regular, no murmur ABDOMEN: BS+, soft, nontender, no mass, no bruits EXTREMITIES: No edema NEUROLOGIC: CN intact and symmetric to inspection. MUSCULOSKELETAL: No gross deformity to visual inspection PSYCH: Unresponsive to verbal or tactile stimuli Objective Data Vital Signs Vital Signs: Vital Signs - 24 hr 11/13/24 17:10 11/13/24 19:47 11/13/24 20:00 Temperature 96.8 F L Pulse Rate 89 84 84 Respiratory Rate 2 L 2 L 2 L Blood Pressure 62/50 L Pulse Oximetry 96 98 98 Oxygen Delivery Nasal Cannula Oxygen Flow Rate 2 Fraction of Inspired Oxygen 28 11/14/24 07:46 11/14/24 08:17 Temperature 97.3 F L Pulse Rate 96 Respiratory Rate 2 L Blood Pressure 64/35 L Pulse Oximetry 87 L 99 Oxygen Delivery Nasal Cannula Oxygen Flow Rate 2 Fraction of Inspired Oxygen Meds/Results Medications: Active Medications Generic Name Dose Route Start Last Admin Trade Name Freq PRN Reason Stop Dose Admin Acetaminophen 650 mg 11/12/24 21:45 Acetaminophen 650 Mg Suppository RECTAL Q4H PRN Fever Artificial Tears 1 drop 11/12/24 21:50 11/14/24 08:17 Artificial Tears Ophth Soln 15 Ml Bottle EACH EYE 1 drop Q12H AMBER Administration Diazepam 5 mg 11/13/24 00:00 11/14/24 11:21 Diazepam Inj (*Crx) 10 Mg/2 Ml Syringe IV PUSH 5 mg Q6HR AMBER Administration Diazepam 5 mg 11/12/24 23:30 Diazepam Inj (*Crx) 10 Mg/2 Ml Syringe IV PUSH Q2H PRN RESTLESSNESS Glycopyrrolate 0.1 mg 11/12/24 21:45 11/14/24 15:37 Glycopyrrolate Inj (*Sp) 0.2 Mg/Ml Vial IV PUSH 0.1 mg Q4H PRN Administration INCREASED secretions Hydromorphone HCl 2 mg 11/12/24 23:38 11/13/24 00:22 Hydromorphone Hcl Inj (*Crx) 2 Mg/Ml Vial IV PUSH 2 mg Q2H PRN Administration PAIN/DYSPNEA Hydromorphone HCl 50 mg/ 100 mls @ 2 mls/hr 11/12/24 21:50 11/12/24 22:38 Sodium Chloride IV CONT 1 mg/hr .Q24H AMBER 2 mls/hr Administration 1 MG/HR Prochlorperazine Edisylate 10 mg 11/12/24 21:46 Prochlorperazine Edisylate 10 Mg/2 Ml Vial IV PUSH Q4H PRN Nausea And Vomiting
[2024-11-14 20:00] VITALS: BP 53/31; PULSE 71; PULSE 86; RESP 4; TEMP 35.7; O2SAT 90
[2024-11-14 20:20] VITALS: PULSE 71; RESP 4
[2024-11-14] MEDS: HYDROmorphone HCL/PF (*CRX) 50 MG in SODIUM CHLORIDE 0.9% IV 95 ML IV CONT (20:20)
[2024-11-15] MEDS: HYDROmorphone HCL INJ (*CRX) 2 MG/ML VIAL IV PUSH (03:27)
[2024-11-15] MEDS: diazePAM INJ (*CRX) 10 MG/2 ML SYRINGE 5 MG IV PUSH (05:28)
--- NOTE | 2024-11-15 16:32 | PM.DDS ---
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 Medications were titrated to comfort. Mr. Scales peacefully. Additional Data Confirmation of as documented by pronouncing clinician: Pupillary Reflex, Palpable Pulses, Response to Stimuli, Heart Tones and Breath Sounds Name of Provider Notified: Samantha Time Provider Notified: 06:20 Contact Center Director Notified: Yes Date [facility] Notified of : 11/15/24 Time [facility] Notified of : 05:47
== END 2024-11-15 05:40 | disposition expired | DRG 951 ==
PROVIDERS: Admitting Provider Internal Medicine; PCP Family Medicine Adolescent Medicine; Visit Provider Internal Medicine
DX: Z51.5 Encounter for palliative care (principal); K70.30 Alcoholic cirrhosis of liver without ascites; K76.82 Hepatic encephalopathy; K70.40 Alcoholic hepatic failure without coma; I10 Essential (primary) hypertension; D64.9 Anemia, unspecified; N40.0 Benign prostatic hyperplasia without lower urinary tract symptoms; E78.5 Hyperlipidemia, unspecified; F10.20 Alcohol dependence, uncomplicated; F17.210 Nicotine dependence, cigarettes, uncomplicated; Q76.0 Spina bifida occulta
CPT/HCPCS: A9270; J1171; J1596; J3360